=== PATIENT | male | born 1940 | race Caucasian/White ===

== ENCOUNTER 2017-07-25 09:05 | Inpatient (IN) | payer MEDICARE, OTHER, SELFPAY ==
[2017-07-25] VITALS (14 sets, daily range): BP systolic 124–165; BP diastolic 67–89; PULSE 60–80; RESP 16; TEMP 36–36.9; O2SAT 95–99; BMI 25.2; BMI 25.4
--- NOTE | 2017-07-25 09:08 | RAD_ITS ---
STUDY: X-RAY CHEST REASON FOR EXAM: Male, 76 years old. Chest pain TECHNIQUE: Single AP portable view of the chest. COMPARISON: None. FINDINGS: The lungs are clear and expanded. There is no demonstrated pleural abnormality. Normal size heart. Normal mediastinum and christianne. Normal visualized pulmonary arteries. Normal visualized aortic arch and descending thoracic aorta. Normal visualized thoracic spine. Normal visualized ribs, clavicles, and shoulders. There is no demonstrated abnormality of the visualized soft tissue structures of the upper abdomen. RAD/Chest 1 View (Portable) IMPRESSION: No acute cardiopulmonary disease. Electronically Signed: Alex Shi DO at 9:41 EDT , Service support ,
--- NOTE | 2017-07-25 09:08 | EKG12_ITS ---
Test Reason : CP Blood Pressure : / mmHG Vent. Rate : 070 BPM Atrial Rate : 070 BPM P-R Int : 180 ms QRS Dur : 106 ms QT Int : 392 ms P-R-T Axes : 068 052 053 degrees QTc Int : 423 ms Sinus rhythm with occasional Premature ventricular complexes Otherwise normal ECG Confirmed by SHYLA SALMERON ([id number]), editor city MARY SAHNI ([id number] on 08/03/2017 6:05:10 PM Referred By: DIANA Confirmed By:SHYLA SALMERON
[2017-07-25] MEDS: Aspirin 81 MG TAB.CHEW 324 MG PO (09:34)
[2017-07-25 09:47] LABS: Absolute Lymphocyte Count 1.42 X10^3/ul (0.83-4.51); Absolute Neutrophil Count 3.5 X10^3/uL (2.0-7.7); Basophil# 0.04 X10^3/uL; Basophil% 0.7 % (0-1); Eosinophil# 0.16 X10^3/uL; Eosinophils% 2.9 % (0-5); Hematocrit 43.7 % (40-54); Hemoglobin 14.8 g/dl (13.0-16.5); Lymphocyte # 1.42 X10^3/ul (4.0); Lymphocyte % 25.8 % (19-41); Mean Corp Hgb Conc 33.9 g/gl (32-36); Mean Corpuscular Hgb 29.2 pg (27.0-32.0); Mean Corpuscular Volume 86.2 fL (80-94); Mean Platelet Vol. 8.8 fl (6.2-12.0); Monocyte% 7.3 % (0-10); Neutrophil # 3.47 X10^3/uL (2.7-7.7); Neutrophil % 63.1 % (47-70); POSITIVE COUNT NO; POSITIVE DIFFERENTIAL NO; POSITIVE MORPHOLOGY NO; Platelet Count 245 K/mm3 (150-450); RBC Distribution Width CV 14.1 % (11.6-14.6); RBC Distribution Width SD 43.8 fl (35.1-43.9); Red Blood Count 5.07 M/mm3 (4.6-6.2); White Blood Count 5.5 K/mm3 (4.4-11.0)
--- NOTE | 2017-07-25 09:57 | ED.DCSUM_ITS ---
- ER Visit Summary Date of Service: 07/25/17 Chief Complaint: Chest pain History of Present Illness: The patient is a [address] Pizano. He reports that he has chest pain that began approximately 1 month ago. He describes it as a substernal pressure without radiation. It is brought on by exertion and relieved by approximately 30 minutes of rest. Pain is 9 out of 10 at worst and is pain-free currently. Reports that he does belch during these episodes. He denies any associated nausea, vomiting, or diaphoresis. This does make him short of breath. Patient has never had anything like this before. He has never had a stress test or heart catheterization. Physical Examination: Vitals: Stable. Afebrile. General: Well-nourished and well-developed. Head: Normocephalic atraumatic. Neck: Supple, no lymphadenopathy. No JVD. Nontender. Cardiovascular: Regular rate and rhythm. No murmurs. Respiratory: No respiratory distress. Clear to auscultation bilaterally. Abdominal: Soft, nontender, nondistended, normal bowel sounds. No guarding, rebound, or peritoneal signs. Back: Nontender. Extremities: Nontender, no edema. Skin: Normal color, no rash. Neurologic: Alert and oriented ?3. Cranial nerves II through XII are intact. Normal strength and sensation. Psych: Normal affect. Test Results: EKG is sinus at 78 with a PVC. CBC is normal. Chem-7 is normal. Troponin is negative. Chest x-ray shows no acute disease. Emergency Department Course and Treatment: Patient was treated with aspirin. He is resting comfortably and is pain-free. Treatment Plan: Patient will be discussed with the hospitalist. He will be admitted for further evaluation and treatment. Disposition: Admitted in stable condition. Impression: 1. Chest pain. 2. MARILYN score of 2. This note was generated with [employer] dictation software. It may contain incorrect words, spelling, and punctuation that were not noted in review of the chart prior to signing ED Disposition - Plan for ED Patient: Chief Complaint: Chest Pain Referrals: Idania Durham NP-C [Primary Care Provider] -
[2017-07-25 10:04] LABS: Anion Gap 4 (5-15); BUN 14 mg/dL (7-18); Chloride 107 mmol/L (98-107); EST Glomerular Filtration Rate 77 mL/min (>60); Est Glom Filt Rate - Afr Amer 93 mL/min (>60); Estimated Creatinine Clearance 55.83 ml/min; Glucose 91 mg/dL (74-106); Potassium 4.1 mmol/L (3.5-5.1); Sodium Level 140 mmol/L (136-145)
--- NOTE | 2017-07-25 10:57 | PCM.HP.STD ---
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 Personal history of malignant melanoma (Chronic) Z85.820 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 shinto (shave thickness of 0.45 mm) Actinic keratosis (Chronic) L57.0 7 mm actinic keratosis left medial chest wall Family history of skin cancer (Chronic) Z80.8 Smoker (Chronic) F17.200 Allergies No Known Allergies Allergy (Verified 07/25/17 09:07) Home Medications: Ambulatory Orders Medication Instructions Recorded Fluorouracil 30 gm TP BID 07/25/17 Hydrocortisone 2.5% Crm [Hytone] 1 applic TOPICAL DAILY 07/25/17 Multivitamin 1 tab PO DAILY 07/25/17 Ranitidine [Zantac] 150 mg PO BID 07/25/17 Smoking Status: Current every day smoker Patient Problems: Active and Suspected Problems Chest pain (Acute) - Physical Exam Vital Signs Temp Pulse Resp BP Pulse Ox 96.8 F L 77 16 165/89 H 96 07/25/17 09:06 07/25/17 09:06 07/25/17 09:06 07/25/17 09:06 07/25/17 09:31 Oxygen Delivery Method Room Air Weight: 70.942 kg Body Mass Index (BMI) 25.2 Laboratory Tests Past 24 Hrs 07/25/17 07/25/17 09:30 09:30 WBC 5.5 RBC 5.07 Hgb 14.8 Hct 43.7 MCV 86.2 MCH 29.2 MCHC 33.9 RDW 14.1 RDW Differential 43.8 Plt Count 245 MPV 8.8 Immature Gran % (Auto) 0.200 Neut % (Auto) 63.1 Lymph % (Auto) 25.8 Upson % (Auto) 7.3 Eos % (Auto) 2.9 Baso % (Auto) 0.7 Absolute Neuts (auto) 3.5 Absolute Lymphs (auto) 1.42 Total Counted Not Reportable Sodium 140 Potassium 4.1 Chloride 107 Carbon Dioxide 29.0 Anion Gap 4 L BUN 14 Creatinine 1.00 Estim Creat Clear Calc 55.83 Est GFR (MDRD) Af Amer 93 Est GFR (MDRD) Non-Af 77 BUN/Creatinine Ratio 14.0 Glucose 91 Calcium 9.0 Troponin I < 0.015 Assessment/Plan All Active Problems Chest pain (Acute) Open forehead wound (Acute) Code Visit OBSV E&M: 76321 Initial observation care L3
--- NOTE | 2017-07-25 12:27 | ECHOD_ITS ---
Reason For Study: Chest pain Procedure This was a 2D Doppler, Color Flow transthoracic echocardiogram. The study was technically difficult. Exam performed portable in patient room. Left Ventricle Normal size and thickness. The estimated ejection fraction is 45-50 %. Stage 1 diastolic dysfunction. No regional wall motion abnormalities noted. There is mild global hypokinesis of the left ventricle. Right Ventricle Normal size and thickness. A moderator band is seen in the right ventricle. Normal systolic function. Atria Normal left atrium. Normal right atrium. Normal atrial septum. Mitral Valve The mitral valve is structurally normal. No prolapse or stenosis seen. Tricuspid Valve Normal tricuspid valve. Trivial tricuspid valve insufficiency. Right ventricular systolic pressure estimated to be 23 mmHg. Aortic Valve Trisinus/trileaflet aortic valve. Mild diffuse aortic valve thickening. Pulmonic Valve The pulmonic valve is not well visualized. Great Vessels Normal aortic root. Normal arch. Normal inferior vena cava. Inferior vena cava collapse with sniff. Pericardium/Pleural No pericardial effusion. MMode/2D Measurements & Calculations RVDd: 2.4 cm LVOT diam: 2.1 cm Ao root diam: 3.3 cm LVOT area: 3.4 cm2 LA dimension: 3.2 cm LAV(MOD-bp): 33.4 ml EDV(MOD-sp4): 74.3 ml EDV(MOD-sp2): 71.2 ml LAV(MOD-bp) Indexed: 18.6 ml/m2 ESV(MOD-sp4): 38.4 ml EF(MOD-sp2): 43.1 % LAV(MOD-sp2): 41.8 ml EF(MOD-sp4): 48.4 % LAV(MOD-sp4): 20.9 ml SV(MOD-sp4): 36.0 ml SV(MOD-sp2): 30.7 ml LA A4 area: 12.4 cm2 RA A4 area: 10.9 cm2 Doppler Measurements & Calculations MV E max enoch: 49.5 cm/sec Lat Peak E' Enoch: 8.8 cm/sec Med Peak E' Enoch: 5.9 cm/sec MV A max enoch: 76.7 cm/sec E/E' lat: 5.6 E/E' med: 8.4 MV E/A: 0.65 Ao V2 max: 141.0 cm/sec LV V1 max: 79.4 cm/sec SV(LVOT): 57.2 ml Ao max P.0 mmHg LV V1 max P.5 mmHg Ao V2 mean: 110.0 cm/sec LV V1 mean P.3 mmHg Ao mean P.3 mmHg LV V1 mean: 53.5 cm/sec Ao V2 VTI: 28.2 cm LV V1 VTI: 16.6 cm ТАТЬЯНА(I,D): 2.0 cm2 ТАТЬЯНА(V,D): 1.9 cm2 PA V2 max: 97.8 cm/sec TR max enoch: 212.8 cm/sec TR max P.1 mmHg Interpretation Summary The estimated ejection fraction is 45-50 %. Stage 1 diastolic dysfunction. There is mild global hypokinesis of the left ventricle. Trivial tricuspid valve insufficiency. Right ventricular systolic pressure estimated to be 23 mmHg. There is no comparison study available. The study was technically difficult. Ordering Physician: Jovita Colin Referring Physician: Idania Durham Performed By: Magy Norman RDCS
--- NOTE | 2017-07-25 12:40 | EKG12_ITS ---
Test Reason : AM EKG Blood Pressure : / mmHG Vent. Rate : 071 BPM Atrial Rate : 071 BPM P-R Int : 196 ms QRS Dur : 106 ms QT Int : 384 ms P-R-T Axes : 069 052 058 degrees QTc Int : 417 ms Normal sinus rhythm Normal ECG When compared with ECG of 28-JUL-2017 17:36, MANUAL COMPARISON REQUIRED, DATA IS UNCONFIRMED Confirmed by JANICE ARAMBULA, MARY ([id number]), desk editor MARY SAHNI ([id number]) on 08/06/2017 4:46:06 PM Referred By: RUSSELL Confirmed By:MARY CAMACHO MD
[2017-07-25] MEDS: Famotidine 20 MG Tablet PO (15:20)
--- NOTE | 2017-07-25 16:20 | PCM.HP.STD ---
<Jose A Fatima - Last Filed: 07/25/17 16:20> Problem List (1) Chest pain Status: Acute Qualifiers: Ischemic chest pain type: unspecified angina pectoris type (2) Nicotine abuse Status: Chronic (3) HTN (hypertension) Status: Chronic (4) Personal history of malignant melanoma Status: Chronic Comment: Z85.820 History of Present Illness Date of Admission: 07/25/17 Chief Complaint: chest pain The patient is a 76 year old M with a long smoking hx, htn, multiple areas of prior melanoma, who presented to the ER from ENT Dr. Cabrera's office where he was being evaluated for neck pain, but was sent here for chest pain. He states this started 1 month ago, he was eating and experienced a snapping pain in his right neck, after which he developed 9/10 chest pressure that was relieved with belching. This continued to happen repeatedly during the day and night throughout the past month. He notices it especially with activity, though it does occur at rest, and he specifically notes that it happens with stairs and he does have associated SOB. He notes that it is always relieved with belching. He denies diaphoresis and dizziness. He has no prior hx of heart disease. He states he has had high blood pressure in the past but does not take anything for it. He has smoked since age [age], recently cut down from 1.5 ppd to 0.5 ppd and states he has no intention of quitting because he just cant. A daughter has A fib but he denies fm hx of heart disease otherwise. He also drink 3-4 beers per day. He lives a very physically active lifestyle for his age. 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 Psychiatric History: No pertinent psych hx Lives: Spouse/ Significant Other Smoking Status: Current every day smoker Tobacco Use: Cigarettes Alcohol: Heavy Drugs: None - *Family History Sibling History Items: Heart Disease - afib Maternal History Items: No pertinent history Paternal History Items: No pertinent history Review of Systems Constitutional: Denies: Chills, Fever, Weight Change HEENT: Denies: Head Aches, Sinus Congestion, Sinus Drainage Cardiovascular: Reports: Chest Pain, Chest Pressure. Denies: Palpitations Respiratory: Reports: Shortness of Breath. Denies: Cough, Shortness of breath at rest, Sputum production Gastrointestinal: Reports: - - belching. Denies: Abdominal Pain, Nausea, Vomiting Genitourinary: Denies: Dysuria Musculoskeletal: Denies: Joint Pain, Joint Tenderness Skin: Denies: Rash, Wounds Neurological: Denies: Numbness, Tingling, Focal weakness Psychiatric: Denies: Anxiety, Depression, Homicidal Ideations, Suicidal Ideations Hematologic/ Lymphatic: Denies: Easy Bruising, Easy Bleeding VTE Information - Inpt Only VTE Present on Admission: No VTE Mechan Device Prophylaxis: None VTE Pharm Prophylaxis ordered?: Yes Patient Problems: Active and Suspected Problems Chest pain (Acute) - Physical Exam General: Alert, Oriented x3, Cooperative HEENT: Atraumatic, PERRLA, EOMI, Normocephalic Neck: Supple, No JVD, Negative Carotid Bruits Lungs: Normal air movement, Rales - faint rales BL bases. Cardiovascular: Regular rate, No murmurs Abdomen: Bowel Sounds Present, Soft, Non Tender Extremities: No edema, Capillary Refill Less than 3 Seconds Skin: No rashes, No breakdown Musculoskeletal: No Tenderness to Palpation of Joints or Extremities Neurological: Cranial nerves II-XII grossly intact Psych/Mental Status: Normal Affect, Appropriate Vital Signs Temp Pulse Resp BP Pulse Ox 98.0 F 78 16 126/69 H 97 07/25/17 15:25 07/25/17 15:25 07/25/17 15:25 07/25/17 15:25 07/25/17 15:25 Oxygen Delivery Method Room Air Weight: 73.6 kg Body Mass Index (BMI) 25.4 Laboratory Tests Past 24 Hrs 07/25/17 07/25/17 12:40 16:05 Troponin I < 0.015 Pending Assessment/Plan All Active Problems Chest pain (Acute) Open forehead wound (Acute) 1. Chest pain - 9/10 pressure with exertion and stairs with SOB, relieved by belching. Concern for both underlying CAD, but also for a component of GERD. Neg EKG, troponin, CXR. Cycle enzymes, repeat EKG in am, stress test thursday, maintain on tele. Advised smoking cessation and decreased alcohol consumption. Started aspirin, lopressor. -Echo pending 2. Melanoma - on fluorouracil, last surgery 2 weeks ago 3. HTN - not on home meds. May need rx at dc. 4. Nicotine abuse - advised cessation, does not want patch. 5. High risk drinking behavior - advised decrease to 1 / day. currently 3-4/day beers/day. 6. Suspected GERD - start PPI. Trial x 1 month DVT ppx: lovenox DC planning: stress test thursday This patient was seen by Jose A Fatima PA-C under the supervision of Doctor Dixie. <Jovita Colin - Last Filed: 07/25/17 18:05> Problem List (1) Chest pain Status: Acute Qualifiers: Ischemic chest pain type: unspecified angina pectoris type History of Present Illness The patient is a 76 year old M [] Past Medical History Allergies No Known Allergies Allergy (Verified 07/25/17 09:07) - Physical Exam Vital Signs Temp Pulse Resp BP Pulse Ox 98.0 F 78 16 126/69 H 97 07/25/17 15:25 07/25/17 15:25 07/25/17 15:25 07/25/17 15:25 07/25/17 15:25 Oxygen Delivery Method Room Air Weight: 73.6 kg Body Mass Index (BMI) 25.4 Laboratory Tests Past 24 Hrs 07/25/17 07/25/17 12:40 16:05 Troponin I < 0.015 < 0.015 Assessment/Plan Patient was seen and examined with physician medical support assistant Jose A Fatima. I agree with his above history physical exam and assessment and plan as documented. Patient is a lifelong smoker, been smoking since the age of 9 years, nowown to half a pack a day, history of GERD comes in with one-month history of chest pain is worse with exertion and gets relieved with rest. Not associated with diaphoresis or dizziness or palpitations or leg swelling or shortness of breath. This pain seems to be relieved by belching. History of underlying GERD, on famotidine. Review of systems was essentially negative. PMHx: GERD, chronic nicotine use disorder, history of melanoma status post excision in the left temporal region PSHX: Status post surgery melanoma in the left temporal region, right foot surgery status post plating, vasectomy FHX: Non-valvular A. fib in the daughter SHX: Chronic smoker, down to half pack a day, and alcohol more than 4 beers a day, denies any illicit drug use Physical exam: Vitals were reviewed and was stable. GEN: Alert and oriented ?3, not pale, no jaundice, well-hydrated CVS: Heart sounds 1 and 2 with head, no murmurs were heard, regular, no tachycardia RESP: Clinically clear to auscultation EXT: No edema on extremities RAILWAYS ASSISTANT: Grossly intact Labs were reviewed, EKG shows no acute ST-T changes, normal sinus rhythm Assessment: Chest pain: stable angina versus GERD History of melanoma Hypertension Nicotine use disorder Alcohol use disorder Plan: Admit to telemetry bed, monitor vitals closely, IV PPI twice daily, aspirin, beta-ajith, stress test on Thursday Patient refuses nicotine patch. Device to quit smoking and to also limit use of alcohol to less than 1-2 drinks a day Code Visit OBSV E&M: 86596 Initial observation care L3
--- NOTE | 2017-07-25 16:36 | HP.PCM_ITS ---
<Jose A Fatima - Last Filed: 07/25/17 16:20> Problem List (1) Chest pain Status: Acute Qualifiers: Ischemic chest pain type: unspecified angina pectoris type (2) Nicotine abuse Status: Chronic (3) HTN (hypertension) Status: Chronic (4) Personal history of malignant melanoma Status: Chronic Comment: Z85.820 History of Present Illness Date of Admission: 07/25/17 Chief Complaint: chest pain The patient is a 76 year old M with a long smoking hx, htn, multiple areas of prior melanoma, who presented to the ER from ENT Dr. Cabrera's office where he was being evaluated for neck pain, but was sent here for chest pain. He states this started 1 month ago, he was eating and experienced a snapping pain in his right neck, after which he developed 9/10 chest pressure that was relieved with belching. This continued to happen repeatedly during the day and night throughout the past month. He notices it especially with activity, though it does occur at rest, and he specifically notes that it happens with stairs and he does have associated SOB. He notes that it is always relieved with belching. He denies diaphoresis and dizziness. He has no prior hx of heart disease. He states he has had high blood pressure in the past but does not take anything for it. He has smoked since age [age], recently cut down from 1.5 ppd to 0.5 ppd and states he has no intention of quitting because he just cant. A daughter has A fib but he denies fm hx of heart disease otherwise. He also drink 3-4 beers per day. He lives a very physically active lifestyle for his age. 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 Psychiatric History: No pertinent psych hx Lives: Spouse/ Significant Other Smoking Status: Current every day smoker Tobacco Use: Cigarettes Alcohol: Heavy Drugs: None - *Family History Sibling History Items: Heart Disease - afib Maternal History Items: No pertinent history Paternal History Items: No pertinent history Review of Systems Constitutional: Denies: Chills, Fever, Weight Change HEENT: Denies: Head Aches, Sinus Congestion, Sinus Drainage Cardiovascular: Reports: Chest Pain, Chest Pressure. Denies: Palpitations Respiratory: Reports: Shortness of Breath. Denies: Cough, Shortness of breath at rest, Sputum production Gastrointestinal: Reports: - - belching. Denies: Abdominal Pain, Nausea, Vomiting Genitourinary: Denies: Dysuria Musculoskeletal: Denies: Joint Pain, Joint Tenderness Skin: Denies: Rash, Wounds Neurological: Denies: Numbness, Tingling, Focal weakness Psychiatric: Denies: Anxiety, Depression, Homicidal Ideations, Suicidal Ideations Hematologic/ Lymphatic: Denies: Easy Bruising, Easy Bleeding VTE Information - Inpt Only VTE Present on Admission: No VTE Mechan Device Prophylaxis: None VTE Pharm Prophylaxis ordered?: Yes Patient Problems: Active and Suspected Problems Chest pain (Acute) - Physical Exam General: Alert, Oriented x3, Cooperative HEENT: Atraumatic, PERRLA, EOMI, Normocephalic Neck: Supple, No JVD, Negative Carotid Bruits Lungs: Normal air movement, Rales - faint rales BL bases. Cardiovascular: Regular rate, No murmurs Abdomen: Bowel Sounds Present, Soft, Non Tender Extremities: No edema, Capillary Refill Less than 3 Seconds Skin: No rashes, No breakdown Musculoskeletal: No Tenderness to Palpation of Joints or Extremities Neurological: Cranial nerves II-XII grossly intact Psych/Mental Status: Normal Affect, Appropriate Vital Signs Temp Pulse Resp BP Pulse Ox 98.0 F 78 16 126/69 H 97 07/25/17 15:25 07/25/17 15:25 07/25/17 15:25 07/25/17 15:25 07/25/17 15:25 Oxygen Delivery Method Room Air Weight: 73.6 kg Body Mass Index (BMI) 25.4 Laboratory Tests Past 24 Hrs 07/25/17 07/25/17 12:40 16:05 Troponin I < 0.015 Pending Assessment/Plan All Active Problems Chest pain (Acute) Open forehead wound (Acute) 1. Chest pain - 9/10 pressure with exertion and stairs with SOB, relieved by belching. Concern for both underlying CAD, but also for a component of GERD. Neg EKG, troponin, CXR. Cycle enzymes, repeat EKG in am, stress test thursday, maintain on tele. Advised smoking cessation and decreased alcohol consumption. Started aspirin, lopressor. -Echo pending 2. Melanoma - on fluorouracil, last surgery 2 weeks ago 3. HTN - not on home meds. May need rx at dc. 4. Nicotine abuse - advised cessation, does not want patch. 5. High risk drinking behavior - advised decrease to 1 / day. currently 3-4/day beers/day. 6. Suspected GERD - start PPI. Trial x 1 month DVT ppx: lovenox DC planning: stress test thursday This patient was seen by Jose A Fatima PA-C under the supervision of Doctor Dixie. <Jovita Colin - Last Filed: 07/25/17 18:05> Problem List (1) Chest pain Status: Acute Qualifiers: Ischemic chest pain type: unspecified angina pectoris type History of Present Illness The patient is a 76 year old M [] Past Medical History Allergies No Known Allergies Allergy (Verified 07/25/17 09:07) - Physical Exam Vital Signs Temp Pulse Resp BP Pulse Ox 98.0 F 78 16 126/69 H 97 07/25/17 15:25 07/25/17 15:25 07/25/17 15:25 07/25/17 15:25 07/25/17 15:25 Oxygen Delivery Method Room Air Weight: 73.6 kg Body Mass Index (BMI) 25.4 Laboratory Tests Past 24 Hrs 07/25/17 07/25/17 12:40 16:05 Troponin I < 0.015 < 0.015 Assessment/Plan Patient was seen and examined with physician operations and intelligence assistant Jose A Fatima. I agree with his above history physical exam and assessment and plan as documented. Patient is a lifelong smoker, been smoking since the age of 9 years, nowown to half a pack a day, history of GERD comes in with one-month history of chest pain is worse with exertion and gets relieved with rest. Not associated with diaphoresis or dizziness or palpitations or leg swelling or shortness of breath. This pain seems to be relieved by belching. History of underlying GERD , on famotidine. Review of systems was essentially negative. PMHx: GERD, chronic nicotine use disorder, history of melanoma status post excision in the left temporal region PSHX: Status post surgery melanoma in the left temporal region, right foot surgery status post plating, vasectomy FHX: Non-valvular A. fib in the daughter SHX: Chronic smoker, down to half pack a day, and alcohol more than 4 beers a day, denies any illicit drug use Physical exam: Vitals were reviewed and was stable. GEN: Alert and oriented ?3, not pale, no jaundice, well-hydrated CVS: Heart sounds 1 and 2 with head, no murmurs were heard, regular, no tachycardia RESP: Clinically clear to auscultation EXT: No edema on extremities SKIDDER LOADER: Grossly intact Labs were reviewed, EKG shows no acute ST-T changes, normal sinus rhythm Assessment: Chest pain: stable angina versus GERD History of melanoma Hypertension Nicotine use disorder Alcohol use disorder Plan: Admit to telemetry bed, monitor vitals closely, IV PPI twice daily, aspirin, beta-ajith, stress test on Thursday Patient refuses nicotine patch. Device to quit smoking and to also limit use of alcohol to less than 1-2 drinks a day Code Visit OBSV E&M: 10500 Initial observation care L3
[2017-07-25] MEDS: Metoprolol Tartrate 25 MG Tablet 12.5 MG PO (22:50)
[2017-07-25] MEDS: 0.9% NaCl Peripheral Flush Adult/Peds IV (22:50)
[2017-07-26] VITALS (15 sets, daily range): BP systolic 108–125; BP diastolic 64–74; PULSE 66–90; RESP 16–18; TEMP 36.6–37.1; O2SAT 95–98
[2017-07-26 05:26] LABS: Hematocrit 37.9 % (40-54); Hemoglobin 12.7 g/dl (13.0-16.5); Mean Corp Hgb Conc 33.5 g/gl (32-36); Mean Corpuscular Hgb 29.5 pg (27.0-32.0); Mean Corpuscular Volume 88.1 fL (80-94); Mean Platelet Vol. 9.2 fl (6.2-12.0); Platelet Count 228 K/mm3 (150-450); RBC Distribution Width CV 14.2 % (11.6-14.6); RBC Distribution Width SD 45.1 fl (35.1-43.9); White Blood Count 5.9 K/mm3 (4.4-11.0)
[2017-07-26 05:40] LABS: Scan Indicated on CBC? Y/N NO
[2017-07-26 05:41] LABS: Anion Gap 7 (5-15); BUN 21 mg/dL (7-18); BUN/Creat Ratio 23.6 RATIO (10-20); Calcium,Total 8.5 mg/dL (8.5-10.1); Chloride 109 mmol/L (98-107); Cholesterol 167 mg/dL (200); Creatinine, Serum 0.89 mg/dL (0.70-1.30); EST Glomerular Filtration Rate 88 mL/min (>60); Est Glom Filt Rate - Afr Amer 106 mL/min (>60); Estimated Creatinine Clearance 64.99 ml/min; Glucose 102 mg/dL (74-106); High Density Lipoprotein 48 mg/dL; Potassium 4.4 mmol/L (3.5-5.1); Sodium Level 144 mmol/L (136-145); Triglycerides 177 mg/dL; Very Low Density Lipoprotein 35 mg/dL (5-40)
[2017-07-26] MEDS: Aspirin E.C. 81 MG Tablet PO (08:13)
[2017-07-26] MEDS: Metoprolol Tartrate 25 MG Tablet 12.5 MG PO ×2 (09:20→22:07)
[2017-07-26] MEDS: Enoxaparin 40 MG/0.4 ML Syringe SC (09:20)
[2017-07-26] MEDS: 0.9% NaCl Peripheral Flush Adult/Peds IV ×2 (13:18→22:07)
--- NOTE | 2017-07-26 13:34 | PCM.PROGNOTE ---
<Jose A Fatima - Last Filed: 07/26/17 13:34> Patient Problems: Active and Suspected Problems Chest pain (Acute) Subjective: Pt continues to have intermittent episodes of right neck pain, associated with chest pressure relieved with belching. He has no dizziness/LH/SOB. - Physical Exam General: Alert, Oriented x3, Cooperative HEENT: Atraumatic, PERRLA, EOMI, Normocephalic Neck: Supple, No JVD, Negative Carotid Bruits Lungs: Rales - BL bases Cardiovascular: Regular rate, No murmurs Abdomen: Bowel Sounds Present, Soft, Non Tender Extremities: No edema, Capillary Refill Less than 3 Seconds Skin: No rashes, No breakdown Musculoskeletal: No Tenderness to Palpation of Joints or Extremities Neurological: Cranial nerves II-XII grossly intact Psych/Mental Status: Normal Affect, Appropriate Vital Signs Temp Pulse Resp BP Pulse Ox 98.7 F 72 18 120/74 95 07/26/17 08:15 07/26/17 11:17 07/26/17 08:15 07/26/17 08:15 07/26/17 08:15 Oxygen Delivery Method Room Air Weight: 73.3 kg Body Mass Index (BMI) 25.4 Intake and Output for Last 24 Hours 07/24/17 07/25/17 07/26/17 23:59 23:59 23:59 Intake Total 1312.4 / 1312.4 940 / 940 Balance 1312.4 / 1312.4 940 / 940 Laboratory Tests Past 24 Hrs 07/25/17 07/26/17 07/26/17 16:05 04:47 04:47 WBC 5.9 RBC 4.30 L Hgb 12.7 L Hct 37.9 L MCV 88.1 MCH 29.5 MCHC 33.5 RDW 14.2 RDW Differential 45.1 H Plt Count 228 MPV 9.2 Sodium 144 Potassium 4.4 Chloride 109 H Carbon Dioxide 28.0 Anion Gap 7 BUN 21 H Creatinine 0.89 Estim Creat Clear Calc 64.99 Est GFR (MDRD) Af Amer 106 Est GFR (MDRD) Non-Af 88 BUN/Creatinine Ratio 23.6 H Glucose 102 Calcium 8.5 Troponin I < 0.015 Triglycerides 177 Cholesterol 167 LDL Cholesterol 84 VLDL Cholesterol 35 HDL Cholesterol 48 Medical Necessity - Tobacco Use Smoking Status: Current every day smoker Tobacco Use: Cigarettes Assessment/Plan All Active Problems Chest pain (Acute) Open forehead wound (Acute) 1. Chest pain - 9/10 pressure with exertion and stairs with SOB, relieved by belching. Concern for both underlying CAD, but also for a component of GERD. Neg EKG, troponin, CXR. Cycle enzymes, repeat EKG in am, stress test thursday, maintain on tele. Advised smoking cessation and decreased alcohol consumption. Started aspirin, lopressor. -Trop negative x 3 -Intermittent episodes continue as per subjective. -Echo pending -TChol, LDL 84. 2. Melanoma - on fluorouracil, last surgery 2 weeks ago 3. HTN - not on home meds. May need rx at dc. 4. Nicotine abuse - advised cessation, does not want patch. 5. High risk drinking behavior - advised decrease to 1 / day. currently 3-4/day beers/day. 6. Suspected GERD - start PPI. Trial x 1 month. No relief so far. DVT ppx: lovenox DC planning: stress test thursday This patient was seen by Jose A Fatima PA-C under the supervision of Doctor Colin. <Jovita Colin - Last Filed: 07/26/17 16:12> - Physical Exam Vital Signs Temp Pulse Resp BP Pulse Ox 97.8 F 67 16 116/64 95 07/26/17 13:46 07/26/17 15:40 07/26/17 13:46 07/26/17 13:46 07/26/17 13:46 Oxygen Delivery Method Room Air Weight: 73.3 kg Body Mass Index (BMI) 25.4 Intake and Output for Last 24 Hours 07/24/17 07/25/17 07/26/17 23:59 23:59 23:59 Intake Total 1312.4 / 1312.4 940 / 940 Balance 1312.4 / 1312.4 940 / 940 Laboratory Tests Past 24 Hrs 07/25/17 07/26/17 07/26/17 16:05 04:47 04:47 WBC 5.9 RBC 4.30 L Hgb 12.7 L Hct 37.9 L MCV 88.1 MCH 29.5 MCHC 33.5 RDW 14.2 RDW Differential 45.1 H Plt Count 228 MPV 9.2 Sodium 144 Potassium 4.4 Chloride 109 H Carbon Dioxide 28.0 Anion Gap 7 BUN 21 H Creatinine 0.89 Estim Creat Clear Calc 64.99 Est GFR (MDRD) Af Amer 106 Est GFR (MDRD) Non-Af 88 BUN/Creatinine Ratio 23.6 H Glucose 102 Calcium 8.5 Troponin I < 0.015 Triglycerides 177 Cholesterol 167 LDL Cholesterol 84 VLDL Cholesterol 35 HDL Cholesterol 48 Assessment/Plan Seen and examined independently. Denies any complaints at the time of being examined. Had an episode of chest discomfort that was relieved with belching. Has been walking around the nursing unit. No acute events on telemetry. Vitals reviewed, stable. Labs reviewed, troponins have been negative. Physical exam is unremarkable Patient will have stress test in the morning. Will discharge in a.m. if stress test is negative Code Visit Inpatient E&M: 75955 Subs Hosp L2
--- NOTE | 2017-07-26 23:29 | DT_ITS ---
This patient was seen during an EMR downtime July 27, 2017 - August 03, 2017. This patient may have a combination of paper and electronic documentation or all paper documentation. All documentation is viewable within the e-chart portion of [facility] for each patient visit.
[2017-07-27 03:00] VITALS: PULSE 91
[2017-07-27 04:05] VITALS: BP 122/69; PULSE 75; RESP 16; TEMP 36.4; O2SAT 97
--- NOTE | 2017-07-27 05:55 | EKG12_ITS ---
Test Reason : AM EKG Blood Pressure : / mmHG Vent. Rate : 071 BPM Atrial Rate : 071 BPM P-R Int : 184 ms QRS Dur : 106 ms QT Int : 400 ms P-R-T Axes : 066 053 056 degrees QTc Int : 434 ms Normal sinus rhythm Normal ECG Confirmed by RUSSELL ARAMBULA, CHANEL ([id number]), story editor MARY SAHNI ([id number]) on 08/07/2017 2:15:23 PM Referred By: EDGAR Confirmed By:CHANEL WELLS MD
--- NOTE | 2017-07-28 14:17 | EKG12_ITS ---
Test Reason : AM EKG Blood Pressure : / mmHG Vent. Rate : 074 BPM Atrial Rate : 074 BPM P-R Int : 182 ms QRS Dur : 106 ms QT Int : 386 ms P-R-T Axes : 066 053 065 degrees QTc Int : 428 ms Sinus rhythm with occasional Premature ventricular complexes Low voltage QRS (limb leads) Confirmed by RUSSELL ARAMBULA, CHANEL ([id number]), scientific publications editor MARY SAHNI ([id number]) on 08/07/2017 2:12:33 PM Referred By: SVETA Confirmed By:CHANEL WELLS MD
--- NOTE | 2017-07-29 14:17 | EKG12_ITS ---
Test Reason : CP Blood Pressure : / mmHG Vent. Rate : 065 BPM Atrial Rate : 065 BPM P-R Int : 180 ms QRS Dur : 104 ms QT Int : 402 ms P-R-T Axes : 024 047 035 degrees QTc Int : 418 ms Normal sinus rhythm Normal ECG Confirmed by RUSSELL ARAMBULA, CHANEL ([id number]), editor magazine MARY SAHNI ([id number]) on 08/07/2017 2:17:33 PM Referred By: Confirmed By:CHANEL WELLS MD
[2017-07-30 16:23] LABS: Absolute Neutrophil Count 4.4 X10^3/uL (2.0-7.7); Basophil% 0.4 % (0-1); Eosinophils% 3.4 % (0-5); Hematocrit 41.5 % (40-54); Hemoglobin 13.3 g/dl (13.0-16.5); Lymphocyte % 23.9 % (19-41); Mean Corpuscular Hgb 28.5 pg (27.0-32.0); Mean Corpuscular Volume 89.1 fL (80-94); Monocyte% 9.8 % (0-10); Neutrophil # 4.39 X10^3/uL (2.7-7.7); Neutrophil % 62.5 % (47-70); POSITIVE COUNT NO; POSITIVE DIFFERENTIAL NO; POSITIVE MORPHOLOGY NO; Platelet Count 221 K/mm3 (150-450); RBC Distribution Width CV 14.6 % (11.6-14.6); RBC Distribution Width SD 46.9 fl (35.1-43.9); Red Blood Count 4.66 M/mm3 (4.6-6.2)
[2017-07-30 16:24] LABS: Absolute Lymphocyte Count 1.68 X10^3/ul (0.83-4.51); Basophil# 0.03 X10^3/uL; Eosinophil# 0.24 X10^3/uL; Lymphocyte # 1.68 X10^3/ul (4.0); Monocyte# 0.69 X10^3/uL
[2017-07-30 17:48] LABS: Partial Thromboplast Time 33.7 Seconds (24.1-36.2)
[2017-07-31 11:45] LABS: Hematocrit 42.6 % (40-54); Hemoglobin 13.9 g/dl (13.0-16.5); Mean Corp Hgb Conc 32.6 g/gl (32-36); Mean Corpuscular Hgb 28.5 pg (27.0-32.0); Mean Corpuscular Volume 87.5 fL (80-94); Platelet Count 220 K/mm3 (150-450); RBC Distribution Width CV 14.1 % (11.6-14.6); RBC Distribution Width SD 45.2 fl (35.1-43.9); Red Blood Count 4.87 M/mm3 (4.6-6.2); White Blood Count 7.4 K/mm3 (4.4-11.0)
[2017-07-31 11:46] LABS: Mean Platelet Vol. 9.5 fl (6.2-12.0); Scan Indicated on CBC? Y/N NO
--- NOTE | 2017-07-31 16:57 | CL.I_ITS ---
Patient Name: JAGDEEP WALTERS Study Date: 07/28/2017 Performing: Juan Mcgowan MD Ht: 67 inches 170.18 cm : 1940 Wt: 160 lbs 72.575 kg Age: 76 Gender: male BSA: 1.84 PROCEDURE(S) PERFORMED II05-HDR W OR WO PTCA, SINGLE CORONARY ARTERY CLINICAL PROFILE AND CO-MORBIDITIES Heart Failure: None CAD Presentations: Unstable angina. CONCLUSIONS RECOMMENDATIONS ASA Indefinitley Brilinta for at least 12 months Assess LAD with non-invasive testing Follow up with Dr. Matta DESCRIPTION OF PROCEDURE The patient arrived to the procedure lab. The risks and benefits of the procedure as well as a full d escription of our services here and current unavailability of surgical backup were fully explained to the patient and/or their significant other prior to the catheterization. The Timeout was completed, verifying the correct patient and procedure. The patient's procedural site was prepped and draped in the usual fashion. Local anesthetic was given subcutaneously to right radial region with Lidocaine 2% Using a modified Seldinger technique,arterial access was obtained via the right radial artery, a 6Fr sheath was inserted. Right Coronary Artery selective angiography was then performed in multiple view s using a 5 Fr. 4.0 [place] catheter. Left Coronary Artery selective angiography was performed in multi ple views using a 5 Fr. 4.0 [place] catheter. Left Ventriculography was performed in MISHRA projection usi ng a 5 Fr. Pigtail catheter. LV to AO pullback pressures were then recorded. JR4 Guide catheter was inserted and engaged into the RCA. Runthrough Guide wire was advanced to the R CA. Angiogram performed pre balloon dilatation. 2.5 x 15 emerge Balloon catheter was advanced across lesion in the right coronary, proximal. PTCA balloon inflated at 10 atms for 20 secs. Angiogram perfo rmed post balloon dilatation. 3.0 x 15 Resolute Drug Eluting stent was advanced across the lesion in the right coronary, proximal. Angiogram performed post stent deployment. 3.0 x 12 NC Emerge Balloon c atheter was inserted post stent. PTCA balloon inflated at 6 atms for 10 secs. PTCA balloon inflated a t 12 atms for 15 secs. PTCA balloon inflated at 16 atms for 13 secs. PTCA balloon inflated at 16 atms for 15 secs. Angiogram performed post balloon dilatation. 3.5 x 8 NC Emerge Balloon catheter was ins erted post stent. PTCA balloon inflated at 12 atms for 20 secs. PTCA balloon inflated at 16 atms for 20 secs. PTCA balloon inflated at 14 atms for 10 secs. Angiogram performed post balloon dilatation. 3 .0 x 30 Resolute Drug Eluting stent was advanced across the lesion in the right coronary, proximal. D rug Eluting stent was removed intact, failed to cross lesion 3.0x26 resolute Drug Eluting stent was a dvanced across the lesion in the right coronary, proximal. 3.0x12 NC emerge Balloon catheter was inse rted post stent. PTCA balloon inflated at 14 atms for 10 secs. PTCA balloon inflated at 14 atms for 1 4 secs. PTCA balloon inflated at 20 atms for 14 secs. PTCA balloon inflated at 20 atms for 16 secs. P TCA balloon inflated at 20 atms for 10 secs. 3.5x8 NC Emerge Balloon catheter was inserted post stent . PTCA balloon inflated at 14 atms for 9 secs. PTCA balloon inflated at 12 atms for 6 secs. PTCA ball oon inflated at 14 atms for 11 secs. INTERVENTION INFORMATION LESION SITE: RCA (Proximal) Lesion Complexity: High/C Pre Stenosis: 99 % Pre intervention MARILYN flow: 2 PROCEDURE: Drug Eluting Stent with pre and post dilatation Post Stenosis: 0 % Post intervention MARILYN flow: 3 Lesion Devices: Cordis 6 Fr JR4 100cm Guide Catheter Terumo .014 Runthrough Extra Floppy 180cm straight [employer] EMERGE MR 2.50x15 BALLOON Medtronic Resolute RX PILO 3.0x15 P[employer]an [employer] NC EMERGE MR 3.00x12 BALLOON [employer] NC EMERGE MR 3.50x08 BALLOON Medtronic Resolute RX PILO 3.0x30 Medtronic Resolute RX PILO 3.0x26 COMPLICATIONS No Complications PROCEDURE MEDICATIONS Versed 1 mg IV Fentanyl 50 mcg IV Versed 1 mg IV Fentanyl 50 mcg IV Fentanyl 25 mcg IV Oxygen: 2 L/min via nasal cannula Angiomax Bolus 11.3 ml's 07/28/2017 15:44:01 Angiomax 5mg / ml @ 26.3 ml/hr IV started @ 07/28/2017 15:46:17 Heparin diluted in 23cc Heparinized saline. Patient given 10cc IA of this solution. 07/28/2017 15:15:4 0 Nitro 200 mcg IC 07/28/2017 15:52:06 Nitro 200 mcg IC 07/28/2017 15:52:06 Nitro 200 mcg IC 07/28/2017 16:01:16 Verapamil 2.5mg, Ntg 100mcgs, 2000 units of Heparin diluted in 23cc Heparinized saline. Patient give n 10cc IA of this solution. 07/28/2017 15:15:40 SUMMARY OF HEMODYNAMIC DATA Time AIR REST ECG 14:47:49 AO 88/62 (74) SA 15:17:31 LV 119/9, 17 15:33:34 LV 117/8, 16 15:33:41 LV 119/8, 15 15:34:51 LVp 125/7, 18 15:35:01 AOp 116/66 (84) 15:35:06 AO 130/70 (95) 15:45:40 Signed By Juan Mcgowan MD On 07/28/2017 16:49:40 Juan Mcgowan MD
--- NOTE | 2017-07-31 16:57 | CL.D_ITS ---
Patient Name: JAGDEEP WALTERS Study Date: 07/28/2017 Performing: Graham Matta MD Ht: 67 inches 170.18 cm : 1940 Wt: 160 lbs 72.575 kg Age: 76 Gender: male BSA: 1.84 PROCEDURE(S) PERFORMED EW40-FND/COR/LV GR57-ZHI W OR WO PTCA, SINGLE CORONARY ARTERY CLINICAL PROFILE AND INDICATIONS Indications: Other: Accelerating Angina Pectoris; NSVT, Cardiac Arrythmia, Suspected CAD Heart Failure: None Stress/Imaging Stress/Image Study Performed: No CAD Presentations: Unstable angina. Stable angina. (Accelerating) CONCLUSIONS Elevated Left Ventricular End Diastolic Pressure Normal LV size, wall motion,and systolic function LVEF: by LV gram 60 % [place] Multivessel CAD (predominantly RCA and LAD) RECOMMENDATIONS Risk factor modification Medical therapy Referred for immediate PCI DESCRIPTION OF PROCEDURE The patient arrived to the procedure lab. The risks and benefits of the procedure as well as a full d escription of our services here and current unavailability of surgical backup were fully explained to the patient and/or their significant other prior to the catheterization. The Timeout was completed, verifying the correct patient and procedure. The patient's procedural site was prepped and draped in the usual fashion. Local anesthetic was given subcutaneously to right radial region with Lidocaine 2% . Using a modified Seldinger technique, arterial access was obtained via the right radial artery, a 6 Fr sheath was inserted. Right Coronary Artery selective angiography was then performed in multiple v iews using a 5 Fr. 4.0 [place] catheter. Left Coronary Artery selective angiography was performed in mu ltiple views using a 5 Fr. 4.0 [place] catheter. Left Ventriculography was performed in MISHRA projection using a 5 Fr. Pigtail catheter. LV to AO pullback pressures were then recorded. CORONARY ANGIOGRAPHY DOMINANCE: Right Dominant LEFT HEART ASSESSMENT Left Ventricular Ejection Fraction: by LV Gram 60 % Normal LV wall motion Elevated Left Ventricular End Diastolic Pressure LVEDP: 17 mmHg LEFT MAIN: Mild calcification, Mild luminal irregularities LEFT ANTERIOR DECENDING ARTERY: PROX LAD: Mild calcification, Diffuse: Irregular: 25-50 % Stenosis DISTAL LAD: Apical: 95 % Stenosis CIRCUMFLEX ARTERY: PROX CIRC: Mild calcification, Mild luminal irregularities OM 1: Proximal - Mild luminal irregularities RIGHT CORONARY ARTERY: PROX RCA: Eccentric: 99 % Stenosis MID RCA: 25 % Stenosis COLLATERAL FLOW: Collateral flow from Left to Right VALVE FINDINGS: Normal Aortic Valve function Normal Mitral Valve function AORTIC ROOT: Angiographically normal COMPLICATIONS No Complications PROCEDURE MEDICATIONS Versed 1 mg IV Fentanyl 50 mcg IV Versed 1 mg IV Fentanyl 50 mcg IV Fentanyl 25 mcg IV Oxygen: 2 L/min via nasal cannula Angiomax Bolus 11.3 ml's 07/28/2017 15:44:01 Angiomax 5mg / ml @ 26.3 ml/hr IV started @ 07/28/2017 15:46:17 Heparin diluted in 23cc Heparinized saline. Patient given 10cc IA of this solution. 07/28/2017 15:15:4 0 Nitro 200 mcg IC 07/28/2017 15:52:06 Nitro 200 mcg IC 07/28/2017 15:52:06 Nitro 200 mcg IC 07/28/2017 16:01:16 Verapamil 2.5mg, Ntg 100mcgs, 2000 units of Heparin diluted in 23cc Heparinized saline. Patient give n 10cc IA of this solution. 07/28/2017 15:15:40 SUMMARY OF HEMODYNAMIC DATA Time AIR REST ECG 14:47:49 AO 88/62 (74) SA 15:17:31 LV 119/9, 17 15:33:34 LV 117/8, 16 15:33:41 LV 119/8, 15 15:34:51 LVp 125/7, 18 15:35:01 AOp 116/66 (84) 15:35:06 AO 130/70 (95) 15:45:40 Signed By Graham Matta MD On 07/28/2017 17:38:55 Graham Matta MD
[2017-08-01 06:56] LABS: Anion Gap 5 (5-15); BUN 16 mg/dL (7-18); BUN/Creat Ratio 16.2 RATIO (10-20); Calcium,Total 8.2 mg/dL (8.5-10.1); Chloride 109 mmol/L (98-107); Creatinine, Serum 0.99 mg/dL (0.70-1.30); EST Glomerular Filtration Rate 78 mL/min (>60); Est Glom Filt Rate - Afr Amer 95 mL/min (>60); Estimated Creatinine Clearance 58.42 ml/min; Glucose 95 mg/dL (74-106); Potassium 4.1 mmol/L (3.5-5.1); Sodium Level 143 mmol/L (136-145)
[2017-08-01 08:07] LABS: Hematocrit 39.2 % (40-54); Mean Corp Hgb Conc 33.2 g/gl (32-36); Mean Corpuscular Hgb 28.6 pg (27.0-32.0); Mean Corpuscular Volume 86.2 fL (80-94); Mean Platelet Vol. 8.9 fl (6.2-12.0); Platelet Count 199 K/mm3 (150-450); RBC Distribution Width CV 14.2 % (11.6-14.6); RBC Distribution Width SD 44.6 fl (35.1-43.9); Red Blood Count 4.55 M/mm3 (4.6-6.2); Scan Indicated on CBC? Y/N NO; White Blood Count 5.7 K/mm3 (4.4-11.0)
[2017-08-01 10:38] LABS: Anion Gap 7 (5-15); BUN 25 mg/dL (7-18); BUN/Creat Ratio 21.7 RATIO (10-20); Calcium,Total 8.8 mg/dL (8.5-10.1); Chloride 105 mmol/L (98-107); Creatinine, Serum 1.15 mg/dL (0.70-1.30); EST Glomerular Filtration Rate 66 mL/min (>60); Est Glom Filt Rate - Afr Amer 80 mL/min (>60); Estimated Creatinine Clearance 50.29 ml/min; Glucose 97 mg/dL (74-106); Potassium 4.7 mmol/L (3.5-5.1); Sodium Level 141 mmol/L (136-145)
[2017-08-02 20:10] LABS: ACT Activated Clotting Time 301 sec (74-137)
[2017-08-05 14:52] LABS: Anion Gap 8 (5-15); BUN 21 mg/dL (7-18); BUN/Creat Ratio 23.9 RATIO (10-20); Calcium,Total 8.7 mg/dL (8.5-10.1); Chloride 108 mmol/L (98-107); Creatinine, Serum 0.88 mg/dL (0.70-1.30); EST Glomerular Filtration Rate 89 mL/min (>60); Est Glom Filt Rate - Afr Amer 108 mL/min (>60); Estimated Creatinine Clearance 65.72 ml/min; Glucose 92 mg/dL (74-106); Potassium 4.2 mmol/L (3.5-5.1); Sodium Level 143 mmol/L (136-145)
== END 2017-07-28 16:10 | disposition home or self-care (01) | DRG 247 ==
LOC: ED 09:28 → PCU 12:11
PROVIDERS: Internal Medicine; Internal Medicine Cardiovascular Disease; Admitting Provider Internal Medicine; Emergency Provider Emergency Medicine; Family Provider Nurse Practitioner Adult Health; PCP Nurse Practitioner Adult Health; Visit Provider Internal Medicine
DX: I25.110 Atherosclerotic heart disease of native coronary artery with unstable angina pectoris (principal); I47.2 Ventricular tachycardia; F17.210 Nicotine dependence, cigarettes, uncomplicated; E78.5 Hyperlipidemia, unspecified; S60.211A Contusion of right wrist, initial encounter; Y84.0 Cardiac catheterization as the cause of abnormal reaction of the patient, or of later complication, without mention of misadventure at the time of the procedure
CPT/HCPCS: 36415; 71045; 80048; 80061; 83735; 84484; 85025; 85027; 85347; 85610; 85730; 92928; 93005; 93306; 93458; 99152; 99153; 99283; J7030; Q9967; A4216; C1725; C1769; C1874; C1887; C1894; C9600

== ENCOUNTER → 2017-09-03 10:39 | Outpatient (CLI) | payer MEDICARE, OTHER, SELFPAY ==
[2017-09-03 12:06] LABS: AST(SGOT) 15 U/L (15-37); Alanine Aminotransfer ALT/SGPT 27 U/L (16-61); Albumin, Serum 3.6 g/dL (3.2-5.0); Alkaline Phosphatase 87 U/L (45-117); Bilirubin, Direct 0.16 mg/dL (0.00-0.30); Cholesterol 111 mg/dL (200); Globulin 3.3 g/dL (2.2-4.2); High Density Lipoprotein 49 mg/dL; Protein, Total 6.9 g/dL (6.4-8.2); Triglycerides 78 mg/dL; Very Low Density Lipoprotein 16 mg/dL (5-40)
== END ==
PROVIDERS: Family Provider Nurse Practitioner Adult Health; PCP Nurse Practitioner Adult Health; Visit Provider Internal Medicine Cardiovascular Disease
DX: E78.5 Hyperlipidemia, unspecified (principal)
CPT/HCPCS: 36415; 80061; 80076

== ENCOUNTER → 2017-09-15 06:46 | Outpatient (CLI) | payer MEDICARE, OTHER, SELFPAY ==
--- NOTE | 2017-09-15 16:15 | STRESSREP ---
Stress Test Report Date: 09/15/2017 Procedure: Exercise tolerance test/imaging study Indications: Chest pain; shortness of breath/dyspnea; fatigue; CAD; PCI Consent: Per the patient Procedure: The patient exercised on a Jered protocol for 3 minutes and 45 seconds completing Stage I and 45 seconds of Stage II achieving a peak heart rate of 127 bpm (88 % predicted maximal heart rate) with a peak blood pressure 172/70 mmHg and a peak MET capacity of 5 METs. The baseline ECG demonstrated normal sinus rhythm. The peak exercise ECG demonstrated no obvious G changes. There was an occasional PVC during exercise and recovery. The functional capacity was considered average. There was no complaint of chest discomfort during exercise or recovery. The examination was discontinued secondary to dyspnea. Impression: 1. Technically adequate (percent predicted maximal heart rate greater than 85%) exercise tolerance test 2. Peak exercise ECG demonstrated no obvious ECG changes 3. There was an occasional PVC during exercise and recovery. 4. Nuclear images pending Myocardial perfusion imaging study: Technique: The patient was injected with 10 mCi of technetium 99m Cardiolite and subsequently rest SPECT Cardiolite nuclear imaging was obtained in the horizontal long, vertical long, and short axis views. The patient exercised on a Jered protocol for 3 minutes and 45 seconds completing Stage I and 45 seconds of Stage II achieving a peak heart rate of 127 bpm (88 % predicted maximal heart rate) with a peak blood pressure 172/70 mmHg and a peak MET capacity of 5 METs. The patient was injected with 32.6 mCi of technetium 99m Cardiolite and subsequently stress SPECT Cardiolite nuclear imaging was obtained in the horizontal long, vertical long, and short axis views. A gated Cardiolite study at peak stress was obtained. Interpretation: Rest and stress SPECT Cardiolite nuclear imaging status post realignment, normalization, and attenuation correction, demonstrates the appearance of relative uniform tracer uptake and myocardial perfusion appearing within normal limits. There is end systolic thickening and brightening. The gated Cardiolite study demonstrates myocardial thickening and inward wall motion. The reported LVEF is 70 %. Impression: 1. Rest and stress SPECT Cardiolite nuclear imaging demonstrate relative uniform tracer uptake and myocardial perfusion appearing within normal limits. 2. The gated Cardiolite study reports an LVEF of 70 %. This note was generated with The [employer] software. It may contain incorrect words, spelling, and punctuation that were not noted in checking the note before signing.
--- NOTE | 2017-09-15 16:19 | STRESSREP_ITS ---
Stress Test Report Date: 09/15/2017 Procedure: Exercise tolerance test/imaging study Indications: Chest pain; shortness of breath/dyspnea; fatigue; CAD; PCI Consent: Per the patient Procedure: The patient exercised on a Jered protocol for 3 minutes and 45 seconds completing Stage I and 45 seconds of Stage II achieving a peak heart rate of 127 bpm (88 % predicted maximal heart rate) with a peak blood pressure 172/70 mmHg and a peak MET capacity of 5 METs. The baseline ECG demonstrated normal sinus rhythm. The peak exercise ECG demonstrated no obvious G changes. There was an occasional PVC during exercise and recovery. The functional capacity was considered average. There was no complaint of chest discomfort during exercise or recovery. The examination was discontinued secondary to dyspnea. Impression: 1. Technically adequate (percent predicted maximal heart rate greater than 85% ) exercise tolerance test 2. Peak exercise ECG demonstrated no obvious ECG changes 3. There was an occasional PVC during exercise and recovery. 4. Nuclear images pending Myocardial perfusion imaging study: Technique: The patient was injected with 10 mCi of technetium 99m Cardiolite and subsequently rest SPECT Cardiolite nuclear imaging was obtained in the horizontal long, vertical long, and short axis views. The patient exercised on a Jered protocol for 3 minutes and 45 seconds completing Stage I and 45 seconds of Stage II achieving a peak heart rate of 127 bpm (88 % predicted maximal heart rate) with a peak blood pressure 172/70 mmHg and a peak MET capacity of 5 METs. The patient was injected with 32.6 mCi of technetium 99m Cardiolite and subsequently stress SPECT Cardiolite nuclear imaging was obtained in the horizontal long, vertical long, and short axis views. A gated Cardiolite study at peak stress was obtained. Interpretation: Rest and stress SPECT Cardiolite nuclear imaging status post realignment, normalization, and attenuation correction, demonstrates the appearance of relative uniform tracer uptake and myocardial perfusion appearing within normal limits. There is end systolic thickening and brightening. The gated Cardiolite study demonstrates myocardial thickening and inward wall motion. The reported LVEF is 70 %. Impression: 1. Rest and stress SPECT Cardiolite nuclear imaging demonstrate relative uniform tracer uptake and myocardial perfusion appearing within normal limits. 2. The gated Cardiolite study reports an LVEF of 70 %. This note was generated with [employer] software. It may contain incorrect words, spelling, and punctuation that were not noted in checking the note before signing.
== END ==
PROVIDERS: Family Provider Nurse Practitioner Adult Health; PCP Nurse Practitioner Adult Health; Visit Provider Internal Medicine Cardiovascular Disease
DX: I25.10 Atherosclerotic heart disease of native coronary artery without angina pectoris (principal)
CPT/HCPCS: 78452; 93017; A9500; A4216

== ENCOUNTER → 2018-03-30 10:25 | Outpatient (CLI) | payer MEDICARE, OTHER, SELFPAY ==
[2018-03-26 13:16] VITALS: BMI 26.2
[2018-03-30 11:59] LABS: AST(SGOT) 16 U/L (15-37); Alanine Aminotransfer ALT/SGPT 21 U/L (16-61); Albumin, Serum 3.5 g/dL (3.2-5.0); Alkaline Phosphatase 83 U/L (45-117); Bilirubin, Direct 0.14 mg/dL (0.00-0.30); Cholesterol 120 mg/dL (200); Globulin 3.4 g/dL (2.2-4.2); High Density Lipoprotein 60 mg/dL; Protein, Total 6.9 g/dL (6.4-8.2); Triglycerides 71 mg/dL; Very Low Density Lipoprotein 14 mg/dL (5-40)
== END ==
PROVIDERS: Referring Provider Internal Medicine Cardiovascular Disease; Visit Provider Internal Medicine Cardiovascular Disease
DX: I25.10 Atherosclerotic heart disease of native coronary artery without angina pectoris (principal); E78.5 Hyperlipidemia, unspecified
CPT/HCPCS: 36415; 80061; 80076

== ENCOUNTER → 2018-09-23 | Outpatient (CLI) | payer MEDICARE, OTHER, SELFPAY ==
[2018-09-23 11:07] VITALS: BMI 26.4
[2018-09-23 12:57] LABS: Absolute Lymphocyte Count 1.59 X10^3/uL (0.83-4.51); Absolute Neutrophil Count 4.4 X10^3/uL (2.0-7.7); Basophil# 0.05 X10^3/uL; Basophil% 0.7 % (0-1); Eosinophils% 4.3 % (0-5); Hematocrit 40.6 % (40-54); Hemoglobin 12.8 g/dL (13.0-16.5); Lymphocyte # 1.59 X10^3/ul (4.0); Mean Corp Hgb Conc 31.5 g/dL (32-36); Mean Corpuscular Hgb 28.2 pg (27.0-32.0); Mean Corpuscular Volume 89.4 fL (80-94); Mean Platelet Vol. 9.1 fl (6.2-12.0); Monocyte# 0.59 X10^3/uL; Monocyte% 8.5 % (0-10); NRBC Flagged by Analyzer 0 % (0-5); Neutrophil # 4.36 X10^3/uL (2.7-7.7); Neutrophil % 63.1 % (47-70); Platelet Count 197 K/mm3 (150-450); RBC Distribution Width CV 14.2 % (11.6-14.6); RBC Distribution Width SD 45.6 fl (35.1-43.9); Red Blood Count 4.54 M/mm3 (4.6-6.2); White Blood Count 6.9 K/mm3 (4.4-11.0)
[2018-09-23 13:22] LABS: AST(SGOT) 17 U/L (15-37); Alanine Aminotransfer ALT/SGPT 22 U/L (16-61); Albumin, Serum 3.3 g/dL (3.2-5.0); Alkaline Phosphatase 87 U/L (45-117); Bilirubin, Direct 0.12 mg/dL (0.00-0.30); Cholesterol 111 mg/dL (200); Globulin 2.9 g/dL (2.2-4.2); High Density Lipoprotein 54 mg/dL; Protein, Total 6.2 g/dL (6.4-8.2); Triglycerides 124 mg/dL; Very Low Density Lipoprotein 25 mg/dL (5-40)
== END | disposition home or self-care (01) ==
LOC: LAB 11:51
PROVIDERS: Family Provider Nurse Practitioner Adult Health; PCP Nurse Practitioner Adult Health; Referring Provider Physician Assistant Medical; Visit Provider Physician Assistant Medical
DX: I25.10 Atherosclerotic heart disease of native coronary artery without angina pectoris (principal); E78.5 Hyperlipidemia, unspecified; I10 Essential (primary) hypertension
CPT/HCPCS: 36415; 80061; 80076; 85025

== ENCOUNTER → 2019-07-11 08:36 | Outpatient (CLI) | payer MEDICARE, OTHER, SELFPAY ==
[2019-07-04 09:59] VITALS: BMI 25.8
--- NOTE | 2019-07-11 08:39 | RAD_ITS ---
STUDY: X-RAY CHEST REASON FOR EXAM: Male, 78 years old. [place]. HX HEART STENT INSERTION TECHNIQUE: Single AP portable view of the chest. COMPARISON: Prior study of 08-10 FINDINGS: The lungs are clear and expanded. There is no demonstrated pleural abnormality. Normal size heart. Normal mediastinum and christianne. Normal visualized pulmonary arteries. There are calcified plaques of the aortic arch. There are diffuse degenerative changes of the visualized thoracic spine. Normal visualized ribs, clavicles, and shoulders. There is no demonstrated abnormality of the visualized soft tissue structures of the upper abdomen. RAD/Chest PA and Lateral IMPRESSION: Calcified plaques in the aortic arch. Degenerative changes of the thoracic spine. No acute cardiopulmonary disease process is seen. Electronically Signed: Jose Manuel Magaña MD at 16:51 EDT , Service support ,
[2019-07-11 08:55] LABS: Absolute Lymphocyte Count 1.57 X10^3/uL (0.83-4.51); Absolute Neutrophil Count 3.6 X10^3/uL (2.0-7.7); Basophil# 0.04 X10^3/uL; Basophil% 0.7 % (0-1); Eosinophil# 0.28 X10^3/uL; Eosinophils% 4.7 % (0-5); Hematocrit 40.4 % (40-54); Hemoglobin 12.9 g/dL (13.0-16.5); Lymphocyte # 1.57 X10^3/ul (4.0); Lymphocyte % 26.3 % (19-41); Mean Corp Hgb Conc 31.9 g/dL (32-36); Mean Corpuscular Hgb 28.2 pg (27.0-32.0); Mean Corpuscular Volume 88.2 fL (80-94); Mean Platelet Vol. 8.4 fl (6.2-12.0); Monocyte# 0.51 X10^3/uL; Monocyte% 8.5 % (0-10); NRBC Flagged by Analyzer 0 % (0-5); Neutrophil # 3.57 X10^3/uL (2.7-7.7); Neutrophil % 59.6 % (47-70); Platelet Count 178 K/mm3 (150-450); RBC Distribution Width CV 14.6 % (11.6-14.6); RBC Distribution Width SD 46.7 fl (35.1-43.9); Red Blood Count 4.58 M/mm3 (4.6-6.2)
[2019-07-11 09:26] LABS: AST(SGOT) 20 U/L (15-37); Alanine Aminotransfer ALT/SGPT 25 U/L (16-61); Albumin, Serum 3.5 g/dL (3.2-5.0); Alkaline Phosphatase 78 U/L (45-117); Anion Gap 3 (5-15); BUN 18 mg/dL (7-18); Bilirubin, Direct 0.18 mg/dL (0.00-0.30); Calcium,Total 8.7 mg/dL (8.5-10.1); Chloride 105 mmol/L (98-107); Cholesterol 136 mg/dL (200); Creatinine, Serum 1.06 mg/dL (0.70-1.30); EST Glomerular Filtration Rate 72 mL/min (>60); Est Glom Filt Rate - Afr Amer 87 mL/min (>60); Glucose 93 mg/dL (74-106); High Density Lipoprotein 62 mg/dL; Potassium 4.4 mmol/L (3.5-5.1); Protein, Total 6.5 g/dL (6.4-8.2); Sodium Level 140 mmol/L (136-145); Triglycerides 74 mg/dL; Very Low Density Lipoprotein 15 mg/dL (5-40)
== END ==
PROVIDERS: PCP Nurse Practitioner Adult Health; Referring Provider Internal Medicine Cardiovascular Disease; Visit Provider Internal Medicine Cardiovascular Disease
DX: R06.00 Dyspnea, unspecified (principal); I25.10 Atherosclerotic heart disease of native coronary artery without angina pectoris; I10 Essential (primary) hypertension; E78.00 Pure hypercholesterolemia, unspecified; Z95.5 Presence of coronary angioplasty implant and graft
CPT/HCPCS: 36415; 71046; 80048; 80061; 80076; 85025

== ENCOUNTER → 2019-07-26 11:33 | Outpatient (CLI) | payer MEDICARE, OTHER, SELFPAY ==
[2019-07-26 10:41] VITALS: BMI 25.8
[2019-07-26 11:36] LABS: Bacteria 0 SEEN /hpf (None Seen); Mucous, Urine 0 SEEN /hpf (<or=2+); Red Blood Cells-Urine 0 SEEN /hpf (0-5); Squamous Epithelial Cells - UA 0 SEEN /hpf (0-5); White Blood Cells 0 SEEN /hpf (0-5)
[2019-07-26 15:04] LABS: Color, Urine Yellow (Yellow); Glucose, Dipstick Normal (Normal); Ketone-Dipstick Negative (Negative); Leukocyte Esterase-Dipstick Negative /ul (Negative); Nitrite-Dipstick Negative (Negative); Occult Blood-Urine Negative /ul (Negative); Protein-Dipstick Negative (Negative); Urine Bilirubin Dipstick Negative (Negative); Urine Clarity Clear (Clear); Urine Urobilinogen Normal (Normal)
== END ==
PROVIDERS: PCP Internal Medicine; Referring Provider Internal Medicine; Visit Provider Internal Medicine
DX: N40.0 Benign prostatic hyperplasia without lower urinary tract symptoms (principal)
CPT/HCPCS: 36415; 81001; 84153; G0103

== ENCOUNTER → 2019-07-27 06:28 | Outpatient (CLI) | payer MEDICARE, OTHER, SELFPAY ==
[2019-07-04 09:59] VITALS: BMI 25.8
[2019-07-26 10:41] VITALS: BMI 25.8
--- NOTE | 2019-07-27 06:30 | ECHOD_ITS ---
Reason For Study: SOB Procedure This was a 2D Doppler, Color Flow transthoracic echocardiogram. The study was technically difficult. Exam performed in department. Left Ventricle Normal LV size. Left ventricular systolic function is normal. The estimated ejection fraction is 65 %. No evidence for diastolic dysfunction. No regional wall motion abnormalities noted. Right Ventricle Normal RV size. Normal systolic function. Atria Normal left atrium. Normal right atrium. No doppler evidence for ASD. Mitral Valve There is no mitral annular calcification. Normal mitral valve. Trivial mitral valve insufficiency. Tricuspid Valve Normal tricuspid valve. Trivial tricuspid valve insufficiency. Right ventricular systolic pressure estimated to be 27 mmHg. Aortic Valve The aortic valve is not well visualized. Moderate focal aortic valve calcification. Pulmonic Valve The pulmonic valve is not well visualized. Great Vessels Normal sized aortic root. Pericardium/Pleural No pericardial effusion. MMode/2D Measurements & Calculations LVIDd: 3.7 cm IVSd: 1.2 cm LVOT diam: 2.2 cm LVIDs: 2.0 cm LVPWd: 0.97 cm LVOT area: 3.9 cm2 RVDd: 3.2 cm FS: 45.2 % Ao root diam: 3.8 cm LAV(MOD-bp): 43.2 ml LA A4 area: 16.7 cm2 LAV(MOD-bp) Indexed: 23.0 ml/m2 LAV(MOD-sp2): 41.2 ml LAV(MOD-sp4): 43.9 ml LA dimension(2D): 3.7 cm RA A4 area: 15.1 cm2 Doppler Measurements & Calculations MV E max enoch: 72.2 cm/sec Lat Peak E' Enoch: 7.8 cm/sec Med Peak E' Enoch: 8.4 cm/sec MV A max enoch: 83.5 cm/sec E/E' lat: 9.3 E/E' med: 8.6 MV E/A: 0.86 Ao V2 max: 143.4 cm/sec LV V1 max: 91.7 cm/sec SV(LVOT): 77.5 ml Ao max P.2 mmHg LV V1 max P.4 mmHg Ao V2 mean: 92.3 cm/sec LV V1 mean P.8 mmHg Ao mean P.9 mmHg LV V1 mean: 63.2 cm/sec Ao V2 VTI: 27.3 cm LV V1 VTI: 20.0 cm ТАТЬЯНА(I,D): 2.8 cm2 ТАТЬЯНА(V,D): 2.5 cm2 PA V2 max: 100.9 cm/sec TR max enoch: 246.4 cm/sec TR max P.3 mmHg Interpretation Summary The study was technically difficult. Left ventricular systolic function is normal. The estimated ejection fraction is 65 %. Trivial mitral valve insufficiency. Trivial tricuspid valve insufficiency. Moderate focal aortic valve calcification. Right ventricular systolic pressure estimated to be 27 mmHg. No evidence for diastolic dysfunction. Ordering Physician: Graham Matta Referring Physician: Robert Hutchinson Performed By: Poornima Hannah [facility]
--- NOTE | 2019-07-27 10:19 | STRESSREP_ITS ---
Stress Test Report Date: ? Procedure: Pharmacologic stress nuclear imaging study Indications: Shortness of breath/dyspnea on exertion; CAD; PCI Consent: Per the patient Procedure: The patient underwent pharmacologic (Regadenoson) evaluation with a peak heart rate of 103 beats per minute (73 %predicted maximal heart rate) and a peak blood pressure of 140/78 mmHg. The baseline ECG demonstrated normal sinus rhythm. The peak pharmacologic ECG demonstrated no obvious ECG changes. There were no cardiac dysrhythmias pretest, during pharmacologic infusion, or recovery. There was no complaint of chest discomfort during pharmacologic infusion or recovery. The examination was discontinued secondary to completion of protocol. Impression: 1. Pharmacologic (Regadenoson) evaluation 2. Peak pharmacologic ECG with no obvious ECG changes. 3. There were no cardiac dysrhythmias pretest, during pharmacologic infusion, or recovery. 4. Nuclear images pending Myocardial perfusion imaging study: Technique: The patient was injected with 11.5 millicuries of technetium 99m Cardiolite and subsequently rest SPECT Cardiolite nuclear imaging was obtained in the horizontal long, vertical long, and short axis views. The patient underwent pharmacologic (Regadenoson) evaluation with a peak heart rate of 103 beats per minute (73 % percent predicted maximal heart rate) and a peak blood pressure of 140/78 mmHg. The patient was injected with 35.6 millicuries of technetium 99m Cardiolite and subsequently stress SPECT Cardiolite nuclear imaging was obtained in the horizontal long, vertical long, and short axis views. A gated Cardiolite study at peak stress was obtained. Interpretation: Rest and stress SPECT Cardiolite nuclear imaging status post realignment, normalization, and attenuation correction demonstrate relative uniform tracer uptake and myocardial perfusion appearing within normal limits. There is end systolic thickening and brightening. The gated Cardiolite study demonstrates myocardial thickening and inward wall motion. The reported LVEF is 70 %. Impression: 1. Rest and stress SPECT Cardiolite nuclear imaging demonstrate relative uniform tracer uptake and myocardial perfusion appearing within normal limits. 2. The gated Cardiolite study reports an LVEF of 70 %. This note was generated with [employer] software. It may contain incorrect words, spelling, and punctuation that were not noted in checking the note before signing.
== END ==
PROVIDERS: PCP Internal Medicine; Referring Provider Internal Medicine Cardiovascular Disease; Visit Provider Internal Medicine Cardiovascular Disease
DX: R06.00 Dyspnea, unspecified (principal); I25.10 Atherosclerotic heart disease of native coronary artery without angina pectoris; I10 Essential (primary) hypertension; E78.00 Pure hypercholesterolemia, unspecified; Z95.5 Presence of coronary angioplasty implant and graft
CPT/HCPCS: 78452; 93017; 93306; A9500; A4216; J2785

== ENCOUNTER → 2019-08-01 | Outpatient (CLI) | payer MEDICARE, OTHER, SELFPAY ==
[2019-07-26 10:41] VITALS: BMI 25.8
--- NOTE | 2019-08-01 09:40 | US_ITS ---
PROCEDURES: TRANSRECTAL ULTRASOUND GUIDED - PROSTATE REASON FOR EXAM: Male, 78 years old. BPH TECHNIQUE: Ultrasound evaluation of the prostate was performed with real-time and static lua-scale imaging. BIOPSY: A needle core biopsy was perform. A consent form was signed, PT-PTT levels checked and a time-out was called. The patient is currently off any anticoagulant therapy. Cleansing enema: Yes COMPARISON: None. FINDINGS: Prostate Volume: 30.8 cm3 There is a 2.2 cm x 1.9 cm x 2.3 cm hypoechoic nodule in the right peripheral zone of the prostate. A biopsy is recommended. The seminal vesicles appear normal without evidence of nodules or lesions. US/Prostate IMPRESSION: 2.2 cm x 1.9 cm x 2.3 cm hypoechoic nodule in the right peripheral zone of the prostate. A biopsy is recommended. Electronically Signed: Daniel Vasquez, at 14:33 EDT , Service support ,
== END | disposition home or self-care (01) ==
LOC: US 09:40
PROVIDERS: PCP Internal Medicine; Referring Provider Internal Medicine; Visit Provider Internal Medicine
DX: N40.0 Benign prostatic hyperplasia without lower urinary tract symptoms (principal); N53.19 Other ejaculatory dysfunction
CPT/HCPCS: 76872

== ENCOUNTER → 2019-08-30 | Outpatient (CLI) | payer MEDICARE, OTHER, SELFPAY ==
[2019-07-26 10:41] VITALS: BMI 25.8
--- NOTE | 2019-08-30 | IMM_PTH ---
PATIENT: JAGDEEP WALTERS LOC: [facility] U#:[id number] AGE/SX: 78/M ROOM: RE08/30/[address]: Dr. Som Childs MD : 1940 BED: DIS: 08/30/2019 SPEC #: [id number] RECD: 09/01/19 10:45 STATUS: YISEL REQ #: [id number] NAHUN: 08/30/19 00:[address]: Som Childs DEPT: IMMUNOHISTOCHEMISTRY RECD BY: Taylor Delarosa ENTERED: 09/01/19 10:51 SP TYPE: IMMUNO OTHR DR: Dr. Robert Hutchinson MD Tissues: D - PROSTATE LEFT Procedures: S100 (initial) PHYSICIAN & INSTITUTION [place] [id number] SPECIMEN INFORMATION: Tissue Source: D - Left prostate, apex, core biopsy Clinical Info: Elevated PSA Specimen Number: [id number] CPT code: 70577 METHODOLOGY: Deparaffinized sections of prefer/formalin-fixed tissue or PAP/DQ stained slides are incubated with monoclonal/polyclonal antibodies/oligonucleotide probes. Localization is made via biotin free immunoperoxidase method. Appropriate controls are performed and reacted as expected. Results on target cell population are indicated in the following table: RESULTS: ANTIBODY / CLONE RESULT Block D S-100 (4C4.9) positive These tests were developed and their performance characteristics determined by [facility]. They may not have been cleared or approved by the U.S. Food and Drug Administration. The FDA has determined that such clearance or approval is not necessary. The above immunohistochemical/dualISH markers are ordered and reviewed by the Pathologist. INTERPRETATION: D. Left prostate, apex, core biopsy: Focal perineural invasion suspected. AM:sadaf 09/02/19
--- NOTE | 2019-08-30 11:30 | PROSBIL_PTH ---
PATIENT: JAGDEEP WALTERS LOC: [facility] U#:[id number] AGE/SX: 78/M ROOM: RE08/30/[address]: Dr. Som Childs MD : 1940 BED: DIS: 08/30/2019 SPEC #: [id number] RECD: 08/30/19 18:22 STATUS: YISEL REIvette #: [id number] NAHUN: 08/30/19 11:[address]: Som Childs DEPT: SURGICAL PATHOLOGY RECD BY: Kevin Lilly ENTERED: 08/31/19 09:22 SP TYPE: PROST BX HARRISON DR: Dr. Robert Hutchinson MD Tissues: A - PROSTATE RIGHT B - PROSTATE RIGHT C - PROSTATE LEFT D - PROSTATE LEFT Procedures: PROSTATE BX HEADER OPERATION: Prostate biopsy PRE-OP DIAGNOSIS: Elevated PSA TISSUE SUBMITTED: A - Right mid, B - Right base, C - Left mid, D - Left base MICROSCOPIC DIAGNOSIS A. Right prostate, mid, core biopsy: Adenocarcinoma. [place] grade: 7 (4+3) Cores involved: 1 out of 1 Tissue involved: 100% Greatest tumor length: 13.5 mm B. Right prostate, base, core biopsy: Adenocarcinoma. [place]ady grade: 7 (4+3) Cores involved: 1 out of 1 Tissue involved: 100% Greatest tumor length: 11 mm C. Left prostate, mid, core biopsy: Adenocarcinoma. Grady grade: 7 (4+3) Cores involved: 1 out of 1 Tissue involved: 40% Greatest tumor length: 3.5 mm D. Left prostate, base, core biopsy: Adenocarcinoma. [place] grade: 7 (4+3) Cores involved: 1 out of 1 Tissue involved: 50% Greatest tumor length: 6 mm Focal perineural invasion. See comment. AM:sadaf 09/01/19 COMMENT D. Immunohistochemistry ([id number]) supports the above diagnosis. Case has been reviewed in consultation with Dr. Moses who concurs with the above diagnosis. IDC:SJ MICROSCOPIC DESCRIPTION Slides are reviewed. GROSS DESCRIPTION A - Received is one container designated prostate, right mid. The specimen consists of one elongated fragment of light granados-white soft tissue measuring 1.5 cm in length and 0.1 cm in diameter. The specimen is totally submitted in one cassette. B - Received is one container designated prostate, right base. The specimen consists of one elongated fragment of light granados-white soft tissue measuring 1 cm in length and 0.1 cm in diameter. The specimen is totally submitted in one cassette. C - Received is one container designated prostate, left mid. The specimen consists of one elongated fragment of light granados-white soft tissue measuring 0.8 cm in length and 0.1 cm in diameter. The specimen is totally submitted in one cassette. D - Received is one container designated prostate, left base. The specimen consists of one elongated fragment of light granados-white soft tissue measuring 1.2 cm in length and 0.1 cm in diameter. The specimen is totally submitted in one cassette. / SJ:rg 08/31/19 TC:0 CPT: G0146
== END | disposition home or self-care (01) ==
LOC: LABSPEC 16:26
PROVIDERS: PCP Internal Medicine; Referring Provider Urology; Visit Provider Urology
DX: N40.2 Nodular prostate without lower urinary tract symptoms (principal); R97.20 Elevated prostate specific antigen [PSA]
CPT/HCPCS: 88305; 88342; G0416

== ENCOUNTER → 2019-09-13 09:22 | Outpatient (CLI) | payer MEDICARE, OTHER, SELFPAY ==
[2019-07-26 10:41] VITALS: BMI 25.8
--- NOTE | 2019-09-13 09:26 | NM_ITS ---
CLINICAL: 78-year-old male with recent diagnosis of primary prostate carcinoma. WHOLE BODY 99m Tc MDP RADIONUCLIDE BONE SCINTIGRAPHY COMPARISON: None available FINDINGS: Following the intravenous administration of 27.2 mCi of 99m Tc MDP, whole body bone images reveal: 1. Increased radiopharmaceutical concentration is identified in the glenohumeral and sternoclavicular compartments of both shoulders, acromioclavicular compartment of the left shoulder, bilateral wrists and hands, medial tibial and patellofemoral compartments of both knees, the left forefoot, mid cervical spine posteriorly on the right, lower cervical spine posteriorly on the left, eighth thoracic vertebra posteriorly on the right, third-fifth lumbar vertebra. 2. An increase in tracer distribution is defined in the right ankle articulation. 3. The remaining skeletal structures are scintigraphically unremarkable with normal-appearing renal images and urinary bladder activity identified. NM/Bone Scan Whole Body IMPRESSION: 1. The increase in radiopharmaceutical concentration currently defined in the cervical, thoracic and lumbar spine, bilateral shoulders, both wrists, hands bilaterally, right and left knees, the left forefoot is most consistent with degenerative arthritis. 2. Facilitated uptake defined in the right ankle articulation is commensurate with previous surgical intervention-orthopedic hardware placement. If infection is a diagnostic consideration, correlation with labeled leukocyte imaging is recommended. 3. There is no typical scintigraphic evidence of diffuse axial skeletal metastatic disease on the current examination. Electronically Signed: Christopher Lopes DO at 22:39 EDT Tel , Service support ,
== END ==
PROVIDERS: PCP Internal Medicine; Referring Provider Urology; Visit Provider Urology
DX: C61 Malignant neoplasm of prostate (principal)
CPT/HCPCS: 78306

== ENCOUNTER → 2019-09-16 07:18 | Outpatient (CLI) | payer MEDICARE, OTHER, SELFPAY ==
[2019-07-26 10:41] VITALS: BMI 25.8
--- NOTE | 2019-09-16 07:21 | CT_ITS ---
STUDY: CT ABDOMEN AND PELVIS WITH CONTRAST REASON FOR EXAM: Male, 78 years old. NEOPLASM OF PROSTATE, new diagnosis. 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 Delays included in exam RADIATION DOSAGE (If Supplied By Facility): CTDIvol = ( 13.05 ) mGy, DLP = ( 20281.69 ) mGycm TECHNIQUE: Transaxial images were obtained from the dome of the diaphragm to the symphysis pubis with oral contrast. Oral and amp; IV Readi-CAT and amp; 100mL Isovue-300 was administered. Sagittal and coronal images were reconstructed. Individualized dose optimization techniques were used for this CT. COMPARISON: None. FINDINGS: The visualized lung bases show underlying emphysema with chronic interstitial changes.. The visualized portions of the heart are within normal limits. Normal liver. There are multiple gallstones including two in the neck of the gallbladder.. Normal spleen. Normal pancreas. There is a bowel loop interposed between the anterior edge of the liver in the peritoneal surface which can cause pain in the right clinical setting. Normal bilateral adrenal glands. No obstructive uropathy, incidental note is made of a retroaortic left renal vein Normal visualized stomach. Normal small intestine. Sigmoid diverticulosis is noted without CT evidence of acute diverticulitis. There is nonspecific thickening of the sigmoid colon and underlying lesion cannot be excluded. The appendix is visualized and appears normal. Appendix best seen on coronal recon image sixty-one Peripheral calcifications noted in the abdominal aorta. 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 The maximum dimension of the aneurysm is 3.4 cm, the dissection is seen best on axial images forty-four through forty-eight, and does not involve either iliac artery. There is no CT evidence of leak or retroperitoneal hemorrhage. Normal inferior vena cava. There are scattered subcentimeter periaortic, retroperitoneal lymph nodes. Normal urinary bladder. Prostate is mildly enlarged and impinging upon the inferior bladder. No suspicious pelvic lymph nodes Normal abdominal wall. There are diffuse degenerative changes of the visualized lumbar spine, and pelvis. CT/Abdomen/Pelvis WITH Contrast IMPRESSION: Peripheral calcifications in the abdominal aorta. 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 Neither the aneurysm nor the dissection involves either common iliac artery. No evidence of leak or retroperitoneal hemorrhage. No suspicious solid organ abnormality Sigmoid diverticulosis, there is nonspecific thickening of the sigmoid colon and an underlying lesion cannot be excluded but there is no CT evidence of acute diverticulitis. Mild prostate enlargement Degenerative bony changes Electronically Signed: Carmine Riddle MD at 8:49 EDT , Service support ,
[2019-09-16 07:36] LABS: CREATININE FINGERSTICK 0.7 mg/dL (0.70-1.30); EGFR FINGERSTICK > 60.0000 mL/min (>60)
== END ==
PROVIDERS: PCP Internal Medicine; Referring Provider Urology; Visit Provider Urology
DX: C61 Malignant neoplasm of prostate (principal)
CPT/HCPCS: 74177; Q9967

== ENCOUNTER 2019-10-21 05:15 | Day surgery (SDC) | payer MEDICARE, OTHER, SELFPAY ==
[2019-07-26 10:41] VITALS: BMI 25.8
[2019-10-21 05:51] VITALS: BP 122/60; PULSE 69; RESP 16; TEMP 36.6; O2SAT 95; BMI 26.7
[2019-10-21] MEDS: Lactated Ringers 1,000 ML 100 ML IV (06:09)
[2019-10-21] MEDS: Cefazolin 2 GM in 0.9% Normal Saline 100 ML IV (07:23)
--- NOTE | 2019-10-21 07:26 | PCM.HP.STD ---
History of Present Illness Date of Admission: 10/21/19 Chief Complaint: Prostate cancer The patient is a 78 year old male with a PSA of 23 Allen 7 high-grade prostate cancer negative metastatic work-up presents today for placement of fiducial markers and spacer gel and he is planning to have radiation therapy. 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) S04.9XXS S04.9xxS late effect injury frontal branch left facial nerve after excision melanoma oriental orthodox area with development eyebrow ptosis Acquired blepharoptosis of left eyelid (Chronic) H02.402 H02.402 acquired ptosis left eyebrow Personal history of malignant melanoma (Chronic) Z85.820 Z85.820 Malignant melanoma of face (Chronic) C43.30 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 oriental orthodox (shave thickness of 0.45 mm) Actinic keratosis (Chronic) L57.0 L57.0 7 mm actinic keratosis left medial chest wall Family history of skin cancer (Chronic) Z80.8 Z80.8 Smoker (Chronic) F17.200 F17.200 Open forehead wound (Acute) S01.80XA 1.9 cm lentigo maligna melanoma wound left oriental orthodox GERD (gastroesophageal reflux disease) K21.9 Hearing loss H91.90 HTN (hypertension) (Inactive) I10 Allergies No Known Allergies Allergy (Verified 10/12/19 11:18) Home Medications: Ambulatory Orders Medication Instructions Recorded aspirin 81 mg tablet,delayed 81 mg PO QDAY 08/27/17 release multivitamin 1 tab PO QDAY 08/27/17 metoprolol tartrate 50 mg tablet 50 mg PO BID #180 tab 08/18/19 isosorbide mononitrate 60 mg 60 mg PO DAILY #90 tab 08/29/19 tablet,extended release 24 hr clopidogrel 75 mg tablet 75 mg PO QDAY #90 tab 09/26/19 tamsulosin 0.4 mg capsule 0.4 mg PO DAILY #30 cap 09/26/19 Bicalutamide 50 mg PO DAILY 10/12/19 atorvastatin 40 mg tablet 40 mg PO QDAY #90 tab 10/20/19 Surgical History: Surgical History (Last Reviewed 07/26/19 @ 10:35 by Erwin Malcolm) Presence of stent in coronary artery (Chronic) Onset Date: ~07/28/17 Z95.5 PTCA/PILO of the Prx and Mid RCA 07/28/17 History of fracture of finger Z87.81 History of local excision of skin lesion Z98.890 Multiple sugeries removing melanoma from [place], Chest History of tonsillectomy Z90.89 Hx of vasectomy Z98.52 Postsurgical percutaneous transluminal coronary angioplasty (PTCA) status Onset Date: ~07/28/17 Z98.61 PTCA/PILO ot the Prox and Mid RCA 07/28/17 Surgical History: - - melanoma removal, right foot repair. Psychiatric History: No pertinent psych hx Smoking Status: Current every day smoker Tobacco Use: Cigars - *Family History Sibling Family History: Family History (Last Reviewed 07/26/19 @ 10:35 by Erwin Malcolm) Other Arthritis Atrial fibrillation Heart disease Osteoporosis Skin cancer History Items: Heart Disease Maternal Family History: Family History (Last Reviewed 07/26/19 @ 10:35 by Erwin Malcolm) Other Arthritis Atrial fibrillation Heart disease Osteoporosis Skin cancer History Items: No pertinent history Paternal Family History: Family History (Last Reviewed 07/26/19 @ 10:35 by Erwin Malcolm) Other Arthritis Atrial fibrillation Heart disease Osteoporosis Skin cancer History Items: No pertinent history Review of Systems Constitutional: Denies: Chills, Fever, Weight Change HEENT: Denies: Head Aches, Sinus Congestion, Sinus Drainage Cardiovascular: Denies: Chest Pain, Palpitations Respiratory: Denies: Cough, Shortness of breath at rest, Sputum production Gastrointestinal: Denies: Abdominal Pain, Nausea, Vomiting Genitourinary: Denies: Dysuria Musculoskeletal: Denies: Joint Pain, Joint Tenderness Skin: Denies: Rash, Wounds Neurological: Denies: Numbness, Tingling, Focal weakness Psychiatric: Denies: Anxiety, Depression, Homicidal Ideations, Suicidal Ideations Hematologic/ Lymphatic: Denies: Easy Bruising, Easy Bleeding VTE Information - Inpt Only VTE Present on Admission: No - Physical Exam Vitals/I&O's: Vital Signs Temp Pulse Resp BP Pulse Ox 97.9 F 69 16 122/60 H 95 10/21/19 05:51 10/21/19 05:51 10/21/19 05:51 10/21/19 05:51 10/21/19 05:51 Oxygen Delivery Method Room Air Weight: 75.1 kg Body Mass Index (BMI) 26.7 General: Alert, Oriented x3, Cooperative HEENT: Atraumatic, PERRLA, EOMI, Normocephalic Neck: Supple, No JVD, Negative Carotid Bruits Lungs: Clear to auscultation, Normal air movement Cardiovascular: Regular rate, No murmurs Abdomen: Bowel Sounds Present, Soft, Non Tender Extremities: No edema, Capillary Refill Less than 3 Seconds Skin: No rashes, No breakdown Musculoskeletal: No Tenderness to Palpation of Joints or Extremities Neurological: Cranial nerves II-XII grossly intact Psych/Mental Status: Normal Affect, Appropriate Current Medications Cefazolin Sodium 2 gm/ Sodium (Chloride) 110 mls @ 150 mls/hr IV PREOP ONE Stop: 10/21/19 10:08 Lactated Ringer's () 1,000 mls @ 100 mls/hr IV .Q10H HAI Last Admin: 10/21/19 06:09 Dose: 100 mls/hr Documented by: Assessment/Plan All Active Problems (Last Reviewed 07/26/19 @ 10:35 by Erwin Malcolm) Diastolic dysfunction (Acute) Chest pain (Acute) Open forehead wound (Acute) 78-year-old male with high risk prostate cancer plan to continue with treatment of hormone deprivation therapy and he is also getting complete radiation therapy.
--- NOTE | 2019-10-21 07:27 | DCINST_ITS ---
Discharge Diet: Light diet - advance as tolerated Discharge Activity: Return to Normal Activity Call your doctor if your incision/area has: Sudden Increased Bleeding Allergies/Adverse Reactions: Allergies No Known Allergies Allergy (Verified 10/12/19 11:18) Medications to take at Discharge aspirin 81 mg tablet,delayed release 81 mg PO QDAY 08/27/17 multivitamin 1 tab PO QDAY 08/27/17 metoprolol tartrate 50 mg tablet 50 mg PO BID #180 tab 08/18/19 isosorbide mononitrate 60 mg tablet,extended release 24 hr 60 mg PO DAILY #90 tab 08/29/19 clopidogrel 75 mg tablet 75 mg PO QDAY #90 tab 09/26/19 tamsulosin 0.4 mg capsule 0.4 mg PO DAILY #30 cap 09/26/19 Bicalutamide 50 mg PO DAILY 10/12/19 atorvastatin 40 mg tablet 40 mg PO QDAY #90 tab 10/20/19 Primary Care Physician: Robert Hutchinson MD [Primary Care Provider] - Test Results: Test results from this visit will be discussed in further detail at your follow- up appointment, if applicable. Please Follow Up With: Som Childs MD When: Keep appt for next hormone shot.
--- NOTE | 2019-10-21 07:46 | OP.PCM_ITS ---
Report of Operation Date of Procedure: 10/21/19 Pre-Operative Diagnosis: Prostate cancer Post-Operative Diagnosis: Same Surgery/Procedure Performed:: Transrectal ultrasound-guided placement of fiducial markers. Transrectal ultrasound-guided placement of spacer organ at r isk gel matrix Description of Surgical Findings:: This is a 78-year-old male who has high risk prostate cancer PSA of 23 Grady score was intermediate high risk because of this he is undergoing radiation treatment prior to radiation treatment we are going to place gold markers within the prostate for marked the prostate for radiation treatments also organ to place a spacer gel matrix between the rectum and the prostate to separate the rectum off the prostate to help preserve rectal toxicity. Patient was taken back to the operating room after smooth induction of ane sthesia he was placed supine on the table he was placed in high lithotomy with the legs in stirrups. The penis and testicles were taped to the abdomen we then prepped the perineum with Betadine. I then placed a biplanar ultrasound probe into the rectum and performed ultrasonography of the prostate I could identify the prostate arroyo the mid apex and base of the prostate and the seminal vesicles and the bladder junction. Then via the perineum I advanced the first veneer marker into the right base and deployed the veneer marker. I then advanced a second veneer marker through the perineum into the left base and deployed the veneer marker and then finally I advanced a last veneer marker in the apex of the prostate and deployed the veneer marker once all 3 gold markers were placed and a 3 the spatial configuration for radiation therapy I then used a bevel needle down with saline to guide the needle between the prostate and the rectum once the space of the Denonvilliers' fascia was identified I was right below the non- BAs fascia injected a puff of normal saline and could see nice separation between the rectum and the prostate. The gel matrix spacer organ at gel was prepared in the back table per lace roller's instructions. I then injected the gel matrix between the rectum and the prostate over a course of 13seconds creating a very nice separation between the prostate and the rectum during the injection. After the injection was completed I pulled out the needle the patient's perineum was cleaned patient was taken out of lithotomy position anesthesia was reversed and is taken back to the PACU in good condition. Type of Anesthesia:: General - Admit VTE Documentation VTE Present on Admission: No VTE Mechan Device Prophylaxis: SCD's
[2019-10-21 07:54] VITALS: BP 108/66; BP 122/60; PULSE 68; RESP 16; TEMP 36.7; O2SAT 97
[2019-10-21 08:00] VITALS: BP 122/60; BP 123/73; PULSE 72; RESP 16; O2SAT 97
[2019-10-21 08:12] VITALS: BP 118/57; BP 122/60; PULSE 66; RESP 16; TEMP 36.3; O2SAT 95
[2019-10-21] MEDS: Acetaminophen 325 MG Tablet 650 MG PO (08:49)
[2019-10-21 09:06] VITALS: BP 122/60; BP 134/69; PULSE 73; RESP 16; TEMP 36.3; O2SAT 93
== END 2019-10-21 09:10 | disposition home or self-care (01) ==
LOC: SDC 05:16 → AC 05:17
PROVIDERS: Anesthesiology; PCP Internal Medicine; Referring Provider Urology; Visit Provider Urology
PROC: (CPT 55874; principal; 2019-10-21 07:15)
DX: C61 Malignant neoplasm of prostate (principal); N40.1 Benign prostatic hyperplasia with lower urinary tract symptoms; R35.0 Frequency of micturition; R35.1 Nocturia; R97.20 Elevated prostate specific antigen [PSA]; Z11.59 Encounter for screening for other viral diseases; I25.10 Atherosclerotic heart disease of native coronary artery without angina pectoris; I10 Essential (primary) hypertension; E78.00 Pure hypercholesterolemia, unspecified; M19.90 Unspecified osteoarthritis, unspecified site; F17.290 Nicotine dependence, other tobacco product, uncomplicated; Z79.82 Long term (current) use of aspirin; Z79.02 Long term (current) use of antithrombotics/antiplatelets; Z79.899 Other long term (current) drug therapy; Z85.820 Personal history of malignant melanoma of skin; Z98.52 Vasectomy status; Z95.5 Presence of coronary angioplasty implant and graft
CPT/HCPCS: 00902; 55874; 55876; 87635; 94799; J7120; J2405; U0003

== ENCOUNTER → 2019-11-03 10:30 | Outpatient (CLI) | payer MEDICARE, OTHER, SELFPAY ==
[2019-10-21 05:51] VITALS: BMI 26.7
[2019-11-03 11:33] LABS: Absolute Lymphocyte Count 1.22 X10^3/uL (0.83-4.51); Absolute Neutrophil Count 4.2 X10^3/uL (2.0-7.7); Basophil# 0.04 X10^3/uL; Basophil% 0.7 % (0-1); Eosinophil# 0.15 X10^3/uL; Eosinophils% 2.5 % (0-5); Hematocrit 41.2 % (40-54); Hemoglobin 12.9 g/dL (13.0-16.5); Lymphocyte # 1.22 X10^3/ul (4.0); Lymphocyte % 20.3 % (19-41); Mean Corp Hgb Conc 31.3 g/dL (32-36); Mean Corpuscular Hgb 27.5 pg (27.0-32.0); Mean Corpuscular Volume 87.8 fL (80-94); Mean Platelet Vol. 9.1 fl (6.2-12.0); Monocyte% 6.7 % (0-10); NRBC Flagged by Analyzer 0 % (0-5); Neutrophil # 4.17 X10^3/uL (2.7-7.7); Neutrophil % 69.3 % (47-70); Platelet Count 215 K/mm3 (150-450); RBC Distribution Width SD 44.8 fl (35.1-43.9); Red Blood Count 4.69 M/mm3 (4.6-6.2)
[2019-11-03 12:03] LABS: EST Glomerular Filtration Rate 87 mL/min (>60); Est Glom Filt Rate - Afr Amer 105 mL/min (>60); PSA,Total- Diagnostic 0.78 ng/mL (0.0-4.0)
== END ==
PROVIDERS: PCP Internal Medicine; Referring Provider Radiology Radiation Oncology; Visit Provider Radiology Radiation Oncology
DX: Z01.818 Encounter for other preprocedural examination (principal); C61 Malignant neoplasm of prostate
CPT/HCPCS: 36415; 82565; 84153; 85025

== ENCOUNTER → 2019-11-04 10:29 | Outpatient (CLI) | payer MEDICARE, OTHER, SELFPAY ==
[2019-07-26 10:41] VITALS: BMI 25.8
[2019-10-21 05:51] VITALS: BMI 26.7
--- NOTE | 2019-11-04 10:33 | CT_ITS ---
STUDY: CT PELVIS WITH CONTRAST REASON FOR EXAM: Male, 78 years old. Radiation treatment planning for prostate cancer. Hx melanoma. RADIATION DOSAGE (If Supplied By Facility): CTDIvol = ( 24.57 ) mGy, DLP = ( 799.39 ) mGycm TECHNIQUE: Transaxial imaging of the pelvis was performed with oral contrast. Oral and amp; IV READII-CAT and amp; 100ML ISOVUE 300 was administered intravenously. Individualized dose optimization techniques were used for this CT. COMPARISON: Comparison is made with prior examination dated 09/16/2019. FINDINGS: Normal urinary bladder. Metallic radiation seeds are seen within the prostate. Small amount of free fluid in the pelvis. The prostate measures 3.9 cm x 3.9 cm. Normal visualized small intestine. There are multiple colonic diverticula of the sigmoid colon consistent with chronic diverticulosis. There is no pelvic fluid. There is no pelvic lymphadenopathy or mass lesion. There is diffuse atherosclerotic calcification of the pelvic arteries. 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 The intimal calcification is displaced indicating focal dissection. This is unchanged. Normal abdominal wall. There are diffuse degenerative changes of the visualized lumbar spine. CT/CT Pelvis W/CONT Therapy IMPRESSION: Metallic radiation seeds are seen within the prostate. Small amount of fluid is seen in the pelvis. Stable appearance of the aneurysmal dilatation of the distal aorta. Electronically Signed: Daniel Vasquez, at 13:01 EDT , Service support ,
== END ==
PROVIDERS: PCP Internal Medicine; Referring Provider Radiology Radiation Oncology; Visit Provider Radiology Radiation Oncology
DX: C61 Malignant neoplasm of prostate (principal); Z85.820 Personal history of malignant melanoma of skin
CPT/HCPCS: 51600; 72193; Q9965; Q9967

== ENCOUNTER → 2019-11-29 10:46 | Outpatient (CLI) | payer MEDICARE, OTHER, SELFPAY ==
[2019-11-29 12:22] LABS: Absolute Lymphocyte Count 0.71 X10^3/uL (0.83-4.51); Absolute Neutrophil Count 2.6 X10^3/uL (2.0-7.7); Basophil# 0.02 X10^3/uL; Basophil% 0.5 % (0-1); Eosinophil# 0.29 X10^3/uL; Eosinophils% 7.1 % (0-5); Hemoglobin 11.9 g/dL (13.0-16.5); Lymphocyte # 0.71 X10^3/ul (4.0); Lymphocyte % 17.4 % (19-41); Mean Corp Hgb Conc 32.2 g/dL (32-36); Mean Corpuscular Hgb 28.7 pg (27.0-32.0); Mean Corpuscular Volume 89.2 fL (80-94); Mean Platelet Vol. 9.3 fl (6.2-12.0); Monocyte# 0.43 X10^3/uL; Monocyte% 10.5 % (0-10); NRBC Flagged by Analyzer 0 % (0-5); Neutrophil # 2.63 X10^3/uL (2.7-7.7); Neutrophil % 64.3 % (47-70); Platelet Count 145 K/mm3 (150-450); RBC Distribution Width CV 14.2 % (11.6-14.6); Red Blood Count 4.15 M/mm3 (4.6-6.2); White Blood Count 4.1 K/mm3 (4.4-11.0)
== END ==
PROVIDERS: PCP Internal Medicine; Referring Provider Radiology Radiation Oncology; Visit Provider Radiology Radiation Oncology
DX: C61 Malignant neoplasm of prostate (principal)
CPT/HCPCS: 36415; 85025

== ENCOUNTER → 2019-12-20 10:43 | Outpatient (CLI) | payer MEDICARE, OTHER, SELFPAY ==
[2019-12-20 12:33] LABS: Absolute Lymphocyte Count 0.47 X10^3/uL (0.83-4.51); Absolute Neutrophil Count 2.9 X10^3/uL (2.0-7.7); Basophil# 0.02 X10^3/uL; Basophil% 0.5 % (0-1); Eosinophil# 0.29 X10^3/uL; Eosinophils% 7.1 % (0-5); Hematocrit 38.8 % (40-54); Hemoglobin 12.4 g/dL (13.0-16.5); Lymphocyte # 0.47 X10^3/ul (4.0); Lymphocyte % 11.5 % (19-41); Mean Corpuscular Hgb 28.5 pg (27.0-32.0); Mean Corpuscular Volume 89.2 fL (80-94); Mean Platelet Vol. 9.3 fl (6.2-12.0); Monocyte# 0.43 X10^3/uL; Monocyte% 10.5 % (0-10); NRBC Flagged by Analyzer 0 % (0-5); Neutrophil # 2.86 X10^3/uL (2.7-7.7); Neutrophil % 69.7 % (47-70); POSITIVE DIFFERENTIAL YES; Platelet Count 191 K/mm3 (150-450); RBC Distribution Width SD 48.7 fl (35.1-43.9); Red Blood Count 4.35 M/mm3 (4.6-6.2); White Blood Count 4.1 K/mm3 (4.4-11.0)
[2019-12-20 12:39] LABS: Differential Indicated SCAN CRITERIA MET
[2019-12-20 13:23] LABS: Platelet Estimate ADEQUATE (ADEQ); Red Cell Morphology NORM C+C NORMAL (NORM C&C)
[2019-12-21 13:34] LABS: Pathologist Review Reviewed
== END ==
PROVIDERS: PCP Internal Medicine; Visit Provider Radiology Radiation Oncology
DX: C61 Malignant neoplasm of prostate (principal)
CPT/HCPCS: 36415; 85025

== ENCOUNTER → 2020-03-21 12:45 | Outpatient (CLI) | payer MEDICARE, OTHER, SELFPAY ==
[2020-03-05 10:03] VITALS: BMI 27.4
--- NOTE | 2020-03-21 13:36 | CT_ITS ---
STUDY: CT CHEST WITHOUT CONTRAST REASON FOR EXAM: Male, 79 years old. EMPHYSEMA, DYSPNEA ON EXERTION. RADIATION DOSAGE (If Supplied By Facility): CTDIvol = ( 11.86 ) mGy, DLP = ( 459.57 ) mGycm TECHNIQUE: Transaxial imaging was performed without the administration of intravenous contrast material. Multiplanar coronal and sagittal images were reformatted. Individualized dose optimization techniques were used for this CT. COMPARISON: None. FINDINGS: Calcified plaques at the bifurcation of the carotid arteries bilaterally. Calcified granuloma in the posterior medial segment of the right lower lobe. Mild increased markings in the posterior medial segments of both lower lobes slightly more prominent on the right side suggestive of linear scarring. There is no demonstrated pleural abnormality. There are calcifications of the coronary arteries. There are multiple small lymph nodes within the mediastinum, which are normal in size and morphology most compatible with reactive lymph hyperplasia. Calcified right subcarinal lymph nodes. Normal hilar regions. Normal unenhanced pulmonary arteries. There is atherosclerotic calcification of the aortic arch with tortuosity and elongation of the aortic arch and descending thoracic aorta. There are multi-level degenerative changes of the thoracic spine. There is no demonstrated abnormality of the visualized upper abdomen. CT/Chest without Contrast IMPRESSION: Mild linear scarring at the lung bases. Atherosclerotic calcific plaques of the aorta as well as the origins of the right and left internal carotid arteries. Electronically Signed: Daniel Vasquez MD at 14:15 EST , Service support ,
--- NOTE | 2020-03-22 09:07 | PFT ---
INTRODUCTION: The patient is an 79-year-old male that presents for pulmonary function studies secondary to a diagnosis of emphysema. Respiratory therapy reports good patient effort. Bronchodilators were used during testing. INTERPRETATION: Forced expiration spirometry demonstrates the presence of a severe large airways obstructive ventilatory defect. There was a significant response to aerosolized bronchodilators. Spirograms are of good quality and do not plateau indicating slow emptying of the lungs. Body plethysmography was performed and revealed an elevated TLC and RV, indicative of underlying hyperinflation and air trapping. Diffusing capacity by single breath CO is reduced at 54% of predicted. IMPRESSION: Partially reversible severe large airways obstructive ventilatory defect with associated hyperinflation, air trapping and symmetric reduction in diffusing capacity.
== END ==
PROVIDERS: PCP Internal Medicine; Referring Provider Internal Medicine; Visit Provider Internal Medicine
DX: J43.9 Emphysema, unspecified (principal); R06.00 Dyspnea, unspecified; F17.200 Nicotine dependence, unspecified, uncomplicated
CPT/HCPCS: 71250; 94060; 94726; 94729

== ENCOUNTER → 2020-04-20 11:24 | Outpatient (CLI) | payer MEDICARE, OTHER, SELFPAY ==
[2020-03-05 10:03] VITALS: BMI 27.4
[2020-04-20 10:48] VITALS: BMI 28.8
[2020-04-20 12:54] LABS: Absolute Lymphocyte Count 0.62 X10^3/uL (0.83-4.51); Basophil# 0.02 X10^3/uL; Basophil% 0.4 % (0-1); Eosinophil# 0.16 X10^3/uL; Eosinophils% 3.1 % (0-5); Hematocrit 40.7 % (40-54); Hemoglobin 12.9 g/dL (13.0-16.5); Lymphocyte # 0.62 X10^3/ul (4.0); Lymphocyte % 11.9 % (19-41); Mean Corp Hgb Conc 31.7 g/dL (32-36); Mean Corpuscular Hgb 29.5 pg (27.0-32.0); Mean Corpuscular Volume 93.1 fL (80-94); Mean Platelet Vol. 9.5 fl (6.2-12.0); Monocyte% 7.7 % (0-10); NRBC Flagged by Analyzer 0 % (0-5); Neutrophil # 3.97 X10^3/uL (2.7-7.7); Neutrophil % 76.5 % (47-70); Platelet Count 190 K/mm3 (150-450); RBC Distribution Width CV 13.2 % (11.6-14.6); RBC Distribution Width SD 45.1 fl (35.1-43.9); Red Blood Count 4.37 M/mm3 (4.6-6.2); White Blood Count 5.2 K/mm3 (4.4-11.0)
[2020-04-20 13:20] LABS: AST(SGOT) 18 U/L (15-37); Alanine Aminotransfer ALT/SGPT 26 U/L (16-61); Albumin, Serum 3.4 g/dL (3.2-5.0); Alkaline Phosphatase 80 U/L (45-117); Anion Gap 4 (5-15); BUN 16 mg/dL (7-18); BUN/Creat Ratio 17.1 RATIO (10-20); Calcium,Total 9.2 mg/dL (8.5-10.1); Chloride 106 mmol/L (98-107); Cholesterol 123 mg/dL (200); Creatinine, Serum 0.93 mg/dL (0.70-1.30); EST Glomerular Filtration Rate 83 mL/min (>60); Est Glom Filt Rate - Afr Amer 100 mL/min (>60); Globulin 3.3 g/dL (2.2-4.2); Glucose 91 mg/dL (74-106); High Density Lipoprotein 62 mg/dL; Potassium 4.4 mmol/L (3.5-5.1); Protein, Total 6.7 g/dL (6.4-8.2); Sodium Level 141 mmol/L (136-145); Triglycerides 88 mg/dL; Very Low Density Lipoprotein 18 mg/dL (5-40)
[2020-04-20 13:51] LABS: PSA,Total- Diagnostic 0.03 ng/mL (0.0-4.0)
== END ==
PROVIDERS: PCP Internal Medicine; Referring Provider Urology; Visit Provider Urology
DX: C61 Malignant neoplasm of prostate (principal); I71.00 Dissection of unspecified site of aorta; I71.9 Aortic aneurysm of unspecified site, without rupture; I10 Essential (primary) hypertension
CPT/HCPCS: 36415; 80053; 80061; 84153; 85025

== ENCOUNTER → 2020-07-17 11:03 | Outpatient (CLI) | payer MEDICARE, OTHER, SELFPAY ==
[2020-04-20 10:48] VITALS: BMI 28.8
[2020-07-17 11:56] LABS: PSA,Total- Diagnostic 0.02 ng/mL (0.0-4.0)
== END ==
PROVIDERS: PCP Internal Medicine; Referring Provider Urology; Visit Provider Urology
DX: C61 Malignant neoplasm of prostate (principal)
CPT/HCPCS: 36415; 84153

== ENCOUNTER → 2020-07-20 11:18 | Outpatient (CLI) | payer MEDICARE, OTHER, SELFPAY ==
[2020-07-20 10:55] VITALS: BMI 28.8
--- NOTE | 2020-07-20 12:05 | RAD_ITS ---
STUDY: X-RAY - RIGHT KNEE REASON FOR EXAM: Male, 79 years old. Bilateral Knee Pain TECHNIQUE: 4 view(s) of the knee. COMPARISON: None. FINDINGS: Normal visualized distal femur. Normal visualized proximal tibia and fibula. Normal proximal tibiofibular articulation. There is moderate degenerative arthrosis of the medial femorotibial compartment with moderate joint space narrowing. There is moderate degenerative arthrosis of the lateral femorotibial compartment with moderate joint space narrowing. There is severe degenerative arthrosis of the patellofemoral articulation. There is no demonstrated joint effusion. Chondrocalcinosis The soft tissue structures are unremarkable. RAD/Knee 4 or More Views IMPRESSION: Degenerative arthrosis. Electronically Signed: Jones Melissa DO at 2:04 EDT Tel , Service support ,
--- NOTE | 2020-07-20 12:05 | RAD_ITS ---
STUDY: X-RAY - LEFT KNEE REASON FOR EXAM: Male, 79 years old. PAIN TECHNIQUE: 4 view(s) of the knee. COMPARISON: None. FINDINGS: Severe degenerative change of the patellofemoral joint. Moderate medial and lateral compartment osteophytosis. Chondrocalcinosis. No acute fracture or dislocation. Lateral patellar tilt. No joint effusion RAD/Knee 4 or More Views IMPRESSION: Degenerative changes of the patellofemoral joint with chondrocalcinosis. No acute fracture or dislocation. Electronically Signed: Jones Melissa DO at 2:03 EDT Tel , Service support ,
[2020-07-20 13:09] LABS: Absolute Lymphocyte Count 0.63 X10^3/uL (0.83-4.51); Absolute Neutrophil Count 3.6 X10^3/uL (2.0-7.7); Basophil# 0.03 X10^3/uL; Basophil% 0.6 % (0-1); Eosinophil# 0.13 X10^3/uL; Eosinophils% 2.7 % (0-5); Hematocrit 38.7 % (40-54); Hemoglobin 12.1 g/dL (13.0-16.5); Lymphocyte # 0.63 X10^3/ul (0.83-4.51); Lymphocyte % 13.1 % (19-41); Mean Corp Hgb Conc 31.3 g/dL (32-36); Mean Corpuscular Hgb 28.5 pg (27.0-32.0); Mean Corpuscular Volume 91.3 fL (80-94); Mean Platelet Vol. 9.2 fl (6.2-12.0); Monocyte% 8.3 % (0-10); NRBC Flagged by Analyzer 0 % (0-5); Neutrophil # 3.59 X10^3/uL (2.7-7.7); Neutrophil % 74.7 % (47-70); Platelet Count 193 K/mm3 (150-450); RBC Distribution Width CV 15.4 % (11.6-14.6); RBC Distribution Width SD 51.5 fl (35.1-43.9); Red Blood Count 4.24 M/mm3 (4.6-6.2); White Blood Count 4.8 K/mm3 (4.4-11.0)
[2020-07-20 13:21] LABS: Anion Gap 1 (5-15); BUN 11 mg/dL (7-18); BUN/Creat Ratio 13.1 RATIO (10-20); Calcium,Total 9.2 mg/dL (8.5-10.1); Chloride 108 mmol/L (98-107); Creatinine, Serum 0.84 mg/dL (0.70-1.30); EST Glomerular Filtration Rate 93 mL/min (>60); Est Glom Filt Rate - Afr Amer 113 mL/min (>60); Glucose 101 mg/dL (74-106); Potassium 4.5 mmol/L (3.5-5.1); Sodium Level 142 mmol/L (136-145)
== END ==
PROVIDERS: PCP Internal Medicine; Referring Provider Internal Medicine; Visit Provider Internal Medicine
DX: I10 Essential (primary) hypertension (principal); R53.81 Other malaise; M25.561 Pain in right knee; M25.562 Pain in left knee
CPT/HCPCS: 36415; 73564; 80048; 85025

== ENCOUNTER → 2020-09-28 09:56 | Outpatient (CLI) | payer MEDICARE, OTHER, SELFPAY ==
[2020-09-27 15:39] VITALS: BMI 28.8
--- NOTE | 2020-09-28 10:03 | RAD_ITS ---
STUDY: X-RAY LEFT FOOT, FIRST TOE REASON FOR EXAM: Male, 79 years old. Pain and swelling. TECHNIQUE: 3 view(s) of the toe were obtained. COMPARISON: None. FINDINGS: Normal visualized metatarsus. There is arthrosis of the metatarsophalangeal (M.T.P.) joint with minimal hallux valgus deformity. Hemarthrosis on interphalangeal joint. Normal phalanges. No visualized fracture. The soft tissue structures are unremarkable. RAD/Toe(s) Min 2 Views IMPRESSION: Degenerative changes of the great toe without acute fracture or dislocation. Electronically Signed: Dawson Young DO at 16:58 EDT Tel [phone], Service support ,
== END ==
PROVIDERS: PCP Internal Medicine; Referring Provider Internal Medicine; Visit Provider Internal Medicine
DX: L08.9 Local infection of the skin and subcutaneous tissue, unspecified (principal); M79.676 Pain in unspecified toe(s)
CPT/HCPCS: 73660

== ENCOUNTER 2020-10-07 03:15 | Observation (INO) | payer MEDICARE, OTHER, SELFPAY ==
[2020-09-27 15:39] VITALS: BMI 28.8
[2020-10-07] VITALS (17 sets, daily range): BP systolic 110–156; BP diastolic 56–81; PULSE 77–118; RESP 16–21; TEMP 35.8–36.9; O2SAT 91–95; BMI 28.6; BMI 27.8
--- NOTE | 2020-10-07 03:29 | RAD_ITS ---
STUDY: X-RAY CHEST REASON FOR EXAM: Male, 79 years old. Shortness of breath TECHNIQUE: Single AP portable view of the chest. COMPARISON: 07/11/2019 FINDINGS: Mild prominence of interstitial markings at the lung bases, unchanged. No new confluent airspace opacity. There is no demonstrated pleural abnormality. Normal size heart. Normal mediastinum and christianne. Normal visualized pulmonary arteries. There is atherosclerotic calcification of the aortic arch . There are diffuse degenerative changes of the visualized thoracic spine. Normal visualized ribs, clavicles, and shoulders. There is no demonstrated abnormality of the visualized soft tissue structures of the upper abdomen. RAD/Chest 1 View (Portable) IMPRESSION: Chronic bibasilar interstitial change with no acute cardiopulmonary disease Electronically Signed: Marty Ribeiro MD at 4:27 EDT Tel , Service support ,
--- NOTE | 2020-10-07 03:29 | EKG12_ITS ---
Test Reason : SOB Blood Pressure : / mmHG Vent. Rate : 074 BPM Atrial Rate : 074 BPM P-R Int : 194 ms QRS Dur : 106 ms QT Int : 388 ms P-R-T Axes : 075 058 057 degrees QTc Int : 430 ms Normal sinus rhythm Normal ECG Confirmed by MARY CAMACHO MD ([id number]), material expeditor JOSE VICENTE ([id number]) on 10/09/2020 9:31:46 AM Referred By: RICK Confirmed By:MARY CAMACHO MD
--- NOTE | 2020-10-07 03:31 | EDS_ITS ---
HPI History of Present Illness Chief Complaint: Shortness of Breath Informant: patient Onset/Context/Timing Onset: Days (3 days) Context: Gradual Onset Timing: Intermittent Current Severity: Mild Maximum Severity: Moderate Narrative Narrative: Patient presents with shortness of breath worse with exertion. He does have a history of COPD. He states such as sitting at rest right now does not feel too short of breath with any exertion he becomes quite dyspneic. Tonight he woke from sleep feeling very short of breath. He had very minimal cough. No fever or chills. He does report increased wheezing and has been using his inhaler more than normal. 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 melanoma of face Nicotine abuse Open forehead wound Personal history of malignant melanoma Pure hypercholesterolemia Smoker Tobacco abuse Toe infection Home Medications aspirin 81 mg tablet,delayed release 81 mg PO QDAY 08/27/17 [History Last Taken Unknown] multivitamin 1 tab PO QDAY 08/27/17 [History Last Taken Unknown] calcium carbonate 430 mg calcium (1,000 mg) chewable tablet 430 mg PO DAILY 01/09/20 [History Last Taken Unknown] albuterol sulfate 90 mcg/actuation aerosol inhaler 2 puff INHALATION Q6H PRN #18 g 04/19/20 [Rx Last Taken Unknown] polyethylene glycol 3350 17 gram/dose oral powder 17 g PO DAILY 04/20/20 [History Last Taken Unknown] metoprolol tartrate 50 mg tablet 50 mg PO BID #180 tab 07/16/20 [Rx Last Taken Unknown] cholecalciferol (vitamin D3) 25 mcg (1,000 unit) capsule 25 mcg PO DAILY 07/20/20 [History Last Taken Unknown] mecobalamin (vitamin B12) 5,000 mcg lozenge 5,000 mcg PO DAILY 07/20/20 [History Last Taken Unknown] isosorbide mononitrate 60 mg tablet,extended release 24 hr 60 mg PO DAILY #90 tab 08/16/20 [Rx Last Taken Unknown] atorvastatin 40 mg tablet 40 mg PO QDAY #90 tab 09/14/20 [Rx Last Taken Unknown] tamsulosin 0.4 mg capsule 0.4 mg PO DAILY #90 cap 09/14/20 [Rx Last Taken Unknown] acetaminophen 325 mg tablet 650 mg PO Q6H PRN tab 09/27/20 [History Last Taken Unknown] doxazosin 2 mg tablet 2 mg PO QHS tab 09/27/20 [History Last Taken Unknown] fluticasone fur. 100 mcg-umeclid 62.5 mcg-vilant 25 mcg inhalat.powder 1 inh INHALATION DAILY #28 ea 09/27/20 [Rx Last Taken Unknown] Allergy/AdvReac Type Severity Reaction Status Date / Time No Known Allergies Allergy Verified 10/07/20 03:23 Family History Other Arthritis Atrial fibrillation Heart disease Osteoporosis Skin cancer Surgical History History of bilateral cataract extraction History of fracture of finger History of local excision of skin lesion History of tonsillectomy Hx of vasectomy Postsurgical percutaneous transluminal coronary angioplasty (PTCA) status (~07/28/17) Presence of stent in coronary artery (~07/28/17) Social History Smoking Status: Current every day smoker tobacco type: cigarettes Tobacco: How many years used: 65 Electronic Cigarette Use: not used second hand exposure: Yes alcohol intake: current alcohol intake frequency: 0-2 drinks per day Alcohol type: beer substance use type: does not use what type of physical activity do you participate in: walking ROS ROS ED Constitutional Constitutional ED: Denies chills or fever(s) Eyes Eyes: Denies change in vision ENT ENT ED: Denies sore throat Cardiovascular Cardiovascular: Denies chest pain Respiratory/Chest Respiratory/Chest: Reports cough and dyspnea Gastrointestinal Gastrointestinal: Denies abdominal pain, diarrhea, nausea or vomiting Genitourinary Genitourinary ED: Denies dysuria Musculoskeletal Musculoskeletal: Denies back pain Integumentary Denies rash Neurologic Neurologic: Denies headache(s) or weakness Allergic/Immunologic Allergic/Immunologic ED: Denies urticaria EXAM Physical Exam Const Vital Signs: 10/07/20 03:16 10/07/20 03:17 10/07/20 03:18 Temperature 96.5 F L 96.5 F L Temperature Source Temporal Temporal Pulse Rate 77 77 Respiratory Rate 20 H 20 H Respiratory Effort Short of Breath Respiratory Depth Normal Respiratory Pattern Normal Blood Pressure 156/81 H 156/81 H Blood Pressure Mean 106 106 Pulse Ox 91 91 Oxygen Delivery Method Room Air Room Air Room Air 10/07/20 03:52 Temperature Temperature Source Pulse Rate 79 Respiratory Rate 21 H Respiratory Effort Respiratory Depth Respiratory Pattern Tachypnea Blood Pressure Blood Pressure Mean Pulse Ox Oxygen Delivery Method Positive well nourished and well developed General Appearance ED: well developed HEENT Reports normocephalic and head/scalp atraumatic Eyes PERRL and EOMs intact bilaterally Neck supple Chest Wall inspection of chest normal and palpation of chest normal Resp normal respiratory effort Resp Narrative: End expiratory wheezes bilaterally Cardio regular rate and regular rhythm GI normal to inspection, nondistended, normoactive bowel sounds Palpation: soft Extremity normal to inspection Neuro oriented x3 and no sensory deficits noted Sensorium / Orientation: alert Motor Exam: strength 5/5 throughout Psych mental status grossly normal Skin no rashes or lesions noted MDM MDM MDM Narrative Medical decision making narrative: Lab work, EKG, Covid swab obtained. Portable chest x-ray ordered. Patient given aerosols and IV Solu-Medrol. Lab Data Attestation: I reviewed the patient's lab results. Labs: Laboratory Results - last 24 hr 10/07/20 10/07/20 03:20 03:20 WBC 6.2 RBC 4.14 L Hgb 12.1 L Hct 37.3 L MCV 90.1 MCH 29.2 MCHC 32.4 RDW Std Deviation 46.5 H RDW Coeff of Maurilio 14.1 Plt Count 167 MPV 8.8 Immature Gran % (Auto) 0.300 Neut % (Auto) 68.4 Lymph % (Auto) 15.4 L [place] % (Auto) 8.0 Eos % (Auto) 7.1 H Baso % (Auto) 0.8 Absolute Neuts (auto) 4.2 Absolute Lymphs (auto) 0.95 Nucleated RBC % 0 Sodium 143 Potassium 4.1 Chloride 109 H Carbon Dioxide 28.0 Anion Gap 6 BUN 20 H Creatinine 0.75 Estim Creat Clear Calc 53.17 Est GFR (MDRD) Af Amer 128 Est GFR (MDRD) Non-Af 106 BUN/Creatinine Ratio 26.6 H Glucose 112 H Calcium 8.6 Radiography Chest X-Ray - ED: 1 View, Read by ED Physician and Chronic Changes Diagnostic Testing: Radiology Impression Chest X-Ray 10/07/20 03:29 IMPRESSION: Chronic bibasilar interstitial change with no acute cardiopulmonary disease Electronically Signed: Marty Ribeiro MD at 4:27 EDT Tel , Service support , EKG Initial EKG: Attestation: I personally reviewed and interpreted this EKG as follows: Interpretation: Sinus Rhythm (Sinus at 74 with no acute ischemia.) Treatment and Re-Evaluation Comments:: Following the first 2 breathing treatments auscultation of the lungs revealed increased wheezing throughout. After the final breathing treatment lung sounds are improved with improved air movement and minimal to no wheezing. Lab work is unremarkable. Chest x-ray per my interpretation shows no focal infiltrate. Radiology interpretation reviewed. Patient did ambulate to the restroom and back. Upon returning to his room O2 sat is 86%. He does slowly recover. In light of his hypoxia with exertion I do feel he should be observed today in the hospital for treatment. I will speak with the hospitalist. Discharge Plan Triage Chief Complaint: Shortness of Breath ED Provider: Kitty Tolbert Dx/Rx/DC Orders Clinical Impression: COPD exacerbation Prescriptions: No Action aspirin 81 mg tablet,delayed release (DR/EC) 81 mg PO QDAY RF: 0 multivitamin tablet 1 tab PO QDAY RF: 0 Antacid Ultra Strength 430 mg calcium (1,000 mg) tablet,chewable 430 mg PO DAILY RF: 0 doxazosin 2 mg tablet 2 mg PO QHS RF: 0 acetaminophen 325 mg tablet 650 mg PO Q6H PRN (Reason: PAIN/FEVER) RF: 0 polyethylene glycol 3350 [Miralax] 17 gram/dose powder 17 g PO DAILY RF: 0 cholecalciferol (vitamin D3) 25 mcg (1,000 unit) capsule 25 mcg PO DAILY RF: 0 mecobalamin (vitamin B12) 5,000 mcg lozenge 5,000 mcg PO DAILY RF: 0 Trelegy Ellipta 100-62.5-25 mcg blister with device 1 inh INHALATION DAILY Qty: 28 RF: 5 albuterol sulfate 90 mcg/actuation HFA aerosol inhaler 2 puff INHALATION Q6H PRN (Reason: shortness of breath or wheezing) Qty: 18 RF: 1 metoprolol tartrate 50 mg tablet 50 mg PO BID Qty: 180 RF: 3 isosorbide mononitrate 60 mg tablet extended release 24 hr 60 mg PO DAILY Qty: 90 RF: 3 atorvastatin 40 mg tablet 40 mg PO QDAY Qty: 90 RF: 3 tamsulosin [Flomax] 0.4 mg capsule 0.4 mg PO DAILY Qty: 90 RF: 2 Primary Care Provider: Robert Hutchinson Referrals: Robert Hutchinson MD [Primary Care Provider] - Disposition Disposition: Acute Care Hospital [facility]
[2020-10-07 03:36] LABS: Absolute Lymphocyte Count 0.95 X10^3/uL (0.83-4.51); Absolute Neutrophil Count 4.2 X10^3/uL (2.0-7.7); Basophil# 0.05 X10^3/uL; Basophil% 0.8 % (0-1); Eosinophil# 0.44 X10^3/uL; Eosinophils% 7.1 % (0-5); Hematocrit 37.3 % (40-54); Hemoglobin 12.1 g/dL (13.0-16.5); Lymphocyte # 0.95 X10^3/ul (0.83-4.51); Lymphocyte % 15.4 % (19-41); Mean Corp Hgb Conc 32.4 g/dL (32-36); Mean Corpuscular Hgb 29.2 pg (27.0-32.0); Mean Corpuscular Volume 90.1 fL (80-94); Mean Platelet Vol. 8.8 fl (6.2-12.0); Monocyte# 0.49 X10^3/uL; NRBC Flagged by Analyzer 0 % (0-5); Neutrophil # 4.21 X10^3/uL (2.7-7.7); Neutrophil % 68.4 % (47-70); Platelet Count 167 K/mm3 (150-450); RBC Distribution Width CV 14.1 % (11.6-14.6); RBC Distribution Width SD 46.5 fl (35.1-43.9); Red Blood Count 4.14 M/mm3 (4.6-6.2); White Blood Count 6.2 K/mm3 (4.4-11.0)
[2020-10-07] MEDS: Albuterol 2.5 MG/3 ML VIAL.NEB. INHALATION ×3 (03:44→04:07)
[2020-10-07] MEDS: MethylPREDNISolone 125 MG/2 ML Vial 80 MG IV (03:45)
[2020-10-07] MEDS: Ipratropium/Albuterol Sulfate 3 ML AMPUL.NEB INHALATION ×6 (04:07→22:43)
[2020-10-07 04:15] LABS: Anion Gap 6 (5-15); BUN 20 mg/dL (7-18); BUN/Creat Ratio 26.6 RATIO (10-20); Calcium,Total 8.6 mg/dL (8.5-10.1); Chloride 109 mmol/L (98-107); Creatinine, Serum 0.75 mg/dL (0.70-1.30); EST Glomerular Filtration Rate 106 mL/min (>60); Est Glom Filt Rate - Afr Amer 128 mL/min (>60); Estimated Creatinine Clearance 53.17 ml/min; Glucose 112 mg/dL (74-106); Potassium 4.1 mmol/L (3.5-5.1); Sodium Level 143 mmol/L (136-145)
[2020-10-07] MEDS: Azithromycin 250 MG Tablet 500 MG PO (05:32)
--- NOTE | 2020-10-07 05:33 | PCM.HP.STD ---
HPI - General General Date of Admission: 10/07/20 Date of Service: 10/07/20 Chief Complaint: Shortness of breath for 2 days HPI Narrative JAGDEEP WALTERS, is a 79 M with history of COPD came to ER for acute worsening of shortness of breath for last 2 days along with dry cough. Patient denies fever, chills, chest pain, tightness or pressure. He predominantly has dyspnea on minimal exertion with wheezing. He has been using more inhaler for last 2 days. In ED, patient respiratory rate 2021, gets hypoxic on exertion, 86% on room air with slow recovery. Basic lab test done in the ER unremarkable. Chest x-ray did not show acute change but chronic bibasilar interstitial changes. Twelve-lead EKG shows normal sinus rhythm Patient has history of coronary artery disease status post stents and follows Dr. Matta. He also has history of AAA and was referred to Dr. Johnson for follow-up as an outpatient. REPLACED BY [facility] Medical History Acquired blepharoptosis of left eyelid Actinic keratosis Atherosclerotic heart disease of [place] coronary artery without angina pectoris Bilateral knee pain Bilateral lower extremity edema Bilateral primary osteoarthritis of knee Chest pain COPD (chronic obstructive pulmonary disease) Debility Diastolic dysfunction Essential hypertension Family history of skin cancer GERD (gastroesophageal reflux disease) Great toe pain Hearing loss HTN (hypertension) Late effect of cranial nerve injury Malignant melanoma of face Nicotine abuse Open forehead wound Personal history of malignant melanoma Pure hypercholesterolemia Smoker Tobacco abuse Toe infection Home Medications aspirin 81 mg tablet,delayed release 81 mg PO QDAY 08/27/17 [History Last Taken Unknown] multivitamin 1 tab PO QDAY 08/27/17 [History Last Taken Unknown] calcium carbonate 430 mg calcium (1,000 mg) chewable tablet 430 mg PO DAILY 01/09/20 [History Last Taken Unknown] albuterol sulfate 90 mcg/actuation aerosol inhaler 2 puff INHALATION Q6H PRN #18 g 04/19/20 [Rx Last Taken Unknown] polyethylene glycol 3350 17 gram/dose oral powder 17 g PO DAILY 04/20/20 [History Last Taken Unknown] metoprolol tartrate 50 mg tablet 50 mg PO BID #180 tab 07/16/20 [Rx Last Taken Unknown] cholecalciferol (vitamin D3) 25 mcg (1,000 unit) capsule 25 mcg PO DAILY 07/20/20 [History Last Taken Unknown] mecobalamin (vitamin B12) 5,000 mcg lozenge 5,000 mcg PO DAILY 07/20/20 [History Last Taken Unknown] isosorbide mononitrate 60 mg tablet,extended release 24 hr 60 mg PO DAILY #90 tab 08/16/20 [Rx Last Taken Unknown] atorvastatin 40 mg tablet 40 mg PO QDAY #90 tab 09/14/20 [Rx Last Taken Unknown] tamsulosin 0.4 mg capsule 0.4 mg PO DAILY #90 cap 09/14/20 [Rx Last Taken Unknown] acetaminophen 325 mg tablet 650 mg PO Q6H PRN tab 09/27/20 [History Last Taken Unknown] doxazosin 2 mg tablet 2 mg PO QHS tab 09/27/20 [History Last Taken Unknown] fluticasone fur. 100 mcg-umeclid 62.5 mcg-vilant 25 mcg inhalat.powder 1 inh INHALATION DAILY #28 ea 09/27/20 [Rx Last Taken Unknown] Allergy/AdvReac Type Severity Reaction Status Date / Time No Known Allergies Allergy Verified 10/07/20 03:23 Family History Other Arthritis Atrial fibrillation Heart disease Osteoporosis Skin cancer Surgical History History of bilateral cataract extraction History of fracture of finger History of local excision of skin lesion History of tonsillectomy Hx of vasectomy Postsurgical percutaneous transluminal coronary angioplasty (PTCA) status (~07/28/17) Presence of stent in coronary artery (~07/28/17) Social History Smoking Status: Current every day smoker tobacco type: cigarettes Tobacco: How many years used: 65 Electronic Cigarette Use: not used second hand exposure: Yes alcohol intake: current alcohol intake frequency: 0-2 drinks per day Alcohol type: beer substance use type: does not use what type of physical activity do you participate in: walking ROS ROS Narrative Constitutional: Reports fatigue and weakness with exertion HEENT: Reports systems reviewed and no addt'l complaints, except as documented Respiratory/Chest: As mentioned in HPI Gastrointestinal: Denies coffee ground emesis, hematemesis or vomiting Genitourinary: Denies burning urination or new urinary tract symptoms Musculoskeletal: Denies joint pain and limited range of motion Neurologic: Denies seizure-like activity skin: Maceration of left great toe. Small superficial ulcer. Endocrinology: Reports systems reviewed and no addt'l complaints, except as documented Hematologic/Lymphatic: Reports systems reviewed and no addt'l complaints, except as documented Rest 12 ROS are negative except as mentioned in HPI Vital Signs Vital Signs Vital Signs: 10/07/20 03:16 10/07/20 03:17 10/07/20 03:18 Temperature 96.5 F L 96.5 F L Temperature Source Temporal Temporal Pulse Rate 77 77 Respiratory Rate 20 H 20 H Respiratory Effort Short of Breath Respiratory Depth Normal Respiratory Pattern Normal Blood Pressure 156/81 H 156/81 H Blood Pressure Mean 106 106 Pulse Ox 91 91 Oxygen Delivery Method Room Air Room Air Room Air 10/07/20 03:52 Temperature Temperature Source Pulse Rate 79 Respiratory Rate 21 H Respiratory Effort Respiratory Depth Respiratory Pattern Tachypnea Blood Pressure Blood Pressure Mean Pulse Ox Oxygen Delivery Method Weight Weight: 177 lb 11.081 oz Body Mass Index (BMI) 28.6 Physical Exam Narrative General: Alert, Oriented x3, Cooperative HEENT: Atraumatic, PERRLA, EOMI, Normocephalic. Scar jamal over left baptist of excision of melanoma Oral: No Gingival or Mucosal Lesions/ Ulcerations Neck: Supple, No JVD, Negative Carotid Bruits Lungs: Air entry diminished in bilateral lung bases. Bilateral expiratory rhonchi and fine wheezing present Cardiovascular: Regular rate, Regular Rhythm, Normal S1, Normal S2, No murmurs Abdomen: Bowel Sounds Present, Soft, Non Tender, Non-Distended : No renal angle tenderness. No suprapubic tenderness. Extremities: 2+ bilateral ankle edema, Capillary Refill Less than 3 Seconds Skin: Maceration of left great toe, small superficial ulcer around toenail, possible paronychia Musculoskeletal: No Tenderness to Palpation of Joints or Extremities Neurological: Cranial nerves II-XII grossly intact, DTR 2+/4 and Symmetrical, Neuro grossly intact Psych/Mental Status: Normal Affect, Appropriate. Results Lab / Micro Data Result Diagrams: 10/07/20 03:20 10/07/20 03:20 Labs: Laboratory Results - last 24 hr 10/07/20 03:20: WBC 6.2, RBC 4.14 L, Hgb 12.1 L, Hct 37.3 L, MCV 90.1, MCH 29.2, MCHC 32.4, RDW Std Deviation 46.5 H, RDW Coeff of Maurilio 14.1, Plt Count 167, MPV 8.8, Immature Gran % (Auto) 0.300, Neut % (Auto) 68.4, Lymph % (Auto) 15.4 L, [place] % (Auto) 8.0, Eos % (Auto) 7.1 H, Baso % (Auto) 0.8, Absolute Neuts (auto) 4.2, Absolute Lymphs (auto) 0.95, Nucleated RBC % 0 10/07/20 03:20: Sodium 143, Potassium 4.1, Chloride 109 H, Carbon Dioxide 28.0, Anion Gap 6, BUN 20 H, Creatinine 0.75, Estim Creat Clear Calc 53.17, Est GFR (MDRD) Af Amer 128, Est GFR (MDRD) Non-Af 106, BUN/Creatinine Ratio 26.6 H, Glucose 112 H, Calcium 8.6 Micro: Microbiology 10/07/20 03:33 Mucosa - Nose SARS-CoV-2 Antigen (Rapid) - Final Radiology Impression Chest X-Ray 10/07/20 03:29 IMPRESSION: Chronic bibasilar interstitial change with no acute cardiopulmonary disease Electronically Signed: Marty Ribeiro MD at 4:27 EDT Tel , Service support , Assessment & Plan Assessment/Plan (1) COPD exacerbation: PLAN: This 79-year-old [id number] male is being admitted for COPD exacerbation 1. COPD exacerbation: Mild hypoxia on exertion, 86% on room air. Patient is admitted MedSurg floor under observation. Bronchodilator, IV Solu-Medrol, incentive spirometry and chest physiotherapy. Mucinex 12 mg twice daily. This is the first COPD exacerbation in his life. Patient on Trelegy as an outpatient. Patient had PFT of February 2020 shows partially reversible severe large airway obstructive ventilatory defect with associated hyperinflation, air trapping and symmetric reduction in DLCO. Follow-up Dr. Kellogg as an outpatient. 2. Coronary artery disease status post PCI, AAA and hypertension: Patient follows Dr. Matta, last office visit September 2020. Currently no chest pain. Continue home medications. Echo of 07/2019shows EF 65%, trivial MR, TR with no evidence for diastolic dysfunction. Patient had PCI of multiple mid RCA and mid LAD. Patient has leg edema will give 1 dose of Lasix 40 mg IV. 3. Hypertension and dyslipidemia: Blood pressure is controlled. 4. Superficial left great toe paronychia/small ulcer: Patient was supposed to see Dr. Mayorga but could not get early appointment. consult Dr. Mayorga. Consult wound care nurse. 5. VTE prophylaxis: Patient has AAA aneurysm therefore pharmacological prophylaxis contraindicated. Bilateral SCDs. Living will/advanced directive/end of life care: Patient does not have living will or advanced directive. His is next to kin. After discussion of benefits/risks procedures involved with full code, DNR CC arrest and DNR CC, the patient opted for full code. Patient does want artificial life support including intubation, tube feed, ventilator and/chest compression, central venous catheter, vasopressor and DC shock if needed Total time spent in [id number] encounter in discussion of advanced directive 16 minutes. Charges/Coding Visit Charges OBSV E&M: 79042 Initial observation care L3 Procedures Hospitalists Procedures: 65229 Advncd Care Plan 30 Min
[2020-10-07] MEDS: 0.9% Saline Lock 10 ML Syringe IV ×2 (06:42→21:31)
[2020-10-07] MEDS: guaiFENesin 1,200 MG Tablet 1200 MG PO ×2 (08:58→21:32)
[2020-10-07] MEDS: Multivitamins,Therapeutic Tablet 1 TABLET PO (08:58)
[2020-10-07] MEDS: Metoprolol Tartrate 50 MG Tablet PO ×2 (08:58→21:31)
[2020-10-07] MEDS: Isosorbide Mononitrate 60 MG Tablet PO (08:59)
[2020-10-07] MEDS: Famotidine 20 MG Tablet PO ×2 (08:59→21:31)
[2020-10-07] MEDS: Cholecalciferol (VIT D3) 25 MCG TABLET (1,000 UNITS) PO (08:59)
[2020-10-07] MEDS: Tamsulosin HCl 0.4 MG Capsule PO (08:59)
[2020-10-07] MEDS: Furosemide 40 MG Tablet PO (08:59)
[2020-10-07] MEDS: Aspirin E.C. 81 MG Tablet PO (08:59)
[2020-10-07] MEDS: Polyethylene Glycol 3350 17 GM PACKET PO (09:01)
--- NOTE | 2020-10-07 10:27 | PCM.CONS.GEN ---
Assessment & Plan Assessment/Plan (1) Ingrowing nail, left great toe: (2) Toe pain, left: PLAN: I reviewed and discussed this case. Reassured no local signs of infection are noted and I do not recommend additional antibiotics for this condition. Verbal consent was obtained to perform a wedge resection with a nail nipper bedside. The area was cleansed with isopropyl alcohol and this was successfully performed. He had immediate relief with removal of the incurvated nail border. Topical Betadine and a Band-Aid was applied. He was advised to change his daily until there is resolution of drainage. He already has an appointment with the [facility] on 10-19-20 he was advised to keep that. To wash this site with antibacterial soap and water and to avoid soaking activities. Is okay to wear shoes as long as it does not press directly on this site causing discomfort. Other hospital medical management as noted per admitting team. He can follow-up in the outpatient setting. Thank you for the consultation. Please do not hesitate to call if you have any questions. Laura Mayorga DPM, [facility] [phone] HPI Consult Data Date of Consult: 10/07/20 HPI Narrative Reason for Consultation: Ingrown toenail and concern of infection HPI Narrative: JAGDEEP WALTERS, is a 79 M who was admitted for shortness of breath and has been managed for COPD exacerbation. I was consulted for evaluation of left great ingrown toenail. He relates he had a prior infection and worsening pain with an onset of 2 weeks ago. He tried to trim it at home and even poked it with a needle. He has been putting antibacterial cream on it and was seen in the outpatient setting by his primary care physician. He completed a 1 week course of oral antibiotic and does not recall the name of the medication. He denies current known odor or redness. He denies fever, chill, nausea, vomiting. He denies other joint pain to the foot. He denies any additional recent trauma to the foot. He denies rest paresthesias, claudication, or prior history of lower extremity ulcers. [facility] Medical History (Updated 10/07/20 @ 12:[address] Laura Mayorga DPM) Acquired blepharoptosis of left eyelid Actinic keratosis Alcohol abuse Atherosclerotic heart disease of [place] coronary artery without angina pectoris Bilateral knee pain Bilateral lower extremity edema Bilateral primary osteoarthritis of knee Cancer Chest pain COPD (chronic obstructive pulmonary disease) Debility Diastolic dysfunction Essential hypertension Family history of skin cancer GERD (gastroesophageal reflux disease) Great toe pain Hearing loss HTN (hypertension) Hypertension Late effect of cranial nerve injury Malignant melanoma of face Myocardial infarct Nicotine abuse Open forehead wound Personal history of malignant melanoma Pure hypercholesterolemia Smoker Tobacco abuse Toe infection Home Medications aspirin 81 mg tablet,delayed release 81 mg PO QDAY 08/27/17 [History Last Taken 10/06/20 81 mg] multivitamin 1 tab PO QDAY 08/27/17 [History Last Taken 10/06/20] calcium carbonate 430 mg calcium (1,000 mg) chewable tablet 430 mg PO DAILY 01/09/20 [History Last Taken 10/06/20] albuterol sulfate 90 mcg/actuation aerosol inhaler 2 puff INHALATION Q6H PRN #18 g 04/19/20 [Rx Last Taken 10/06/20 2 puffs] polyethylene glycol 3350 17 gram/dose oral powder 17 g PO DAILY 04/20/20 [History Last Taken 10/06/20] metoprolol tartrate 50 mg tablet 50 mg PO BID #180 tab 07/16/20 [Rx Last Taken 10/06/20] cholecalciferol (vitamin D3) 25 mcg (1,000 unit) capsule 25 mcg PO DAILY 07/20/20 [History Last Taken 10/06/20] mecobalamin (vitamin B12) 5,000 mcg lozenge 5,000 mcg PO DAILY 07/20/20 [History Last Taken 10/06/20] isosorbide mononitrate 60 mg tablet,extended release 24 hr 60 mg PO DAILY #90 tab 08/16/20 [Rx Last Taken 10/06/20] atorvastatin 40 mg tablet 40 mg PO QDAY #90 tab 09/14/20 [Rx Last Taken 10/06/20 40 mg] tamsulosin 0.4 mg capsule 0.4 mg PO DAILY #90 cap 09/14/20 [Rx Last Taken 10/06/20] acetaminophen 325 mg tablet 650 mg PO Q6H PRN tab 09/27/20 [History Last Taken Unknown] doxazosin 2 mg tablet 2 mg PO QHS tab 09/27/20 [History Last Taken 10/06/20] fluticasone fur. 100 mcg-umeclid 62.5 mcg-vilant 25 mcg inhalat.powder 1 inh INHALATION DAILY #28 ea 09/27/20 [Rx Last Taken 10/06/20] Allergy/AdvReac Type Severity Reaction Status Date / Time No Known Allergies Allergy Verified 10/07/20 03:23 Family History Other Arthritis Atrial fibrillation Heart disease Osteoporosis Skin cancer Surgical History (Updated 10/07/20 @ 06:06 by Mariela Haley) History of bilateral cataract extraction History of coronary artery stent placement History of fracture of finger History of local excision of skin lesion History of tonsillectomy Hx of vasectomy Postsurgical percutaneous transluminal coronary angioplasty (PTCA) status (~07/28/17) Presence of stent in coronary artery (~07/28/17) Social History Smoking Status: Current every day smoker tobacco type: cigarettes Tobacco: How many years used: 65 Electronic Cigarette Use: not used second hand exposure: Yes alcohol intake: current alcohol intake frequency: 0-2 drinks per day Alcohol type: beer substance use type: does not use what type of physical activity do you participate in: walking ROS Gastrointestinal Gastrointestinal: Denies nausea or vomiting Musculoskeletal Musculoskeletal: Denies extremity pain, joint pain or tingling Integumentary Integumentary: Reports wounds and other Details: Ingrown toenail Neurologic Neurologic: Denies tingling Physical Exam Const alert and oriented x3 General Appearance: cooperative HEENT normocephalic Extremity Extremity Narrative: No calf tenderness 2 out of 4 palpable DT pulse in 1 out of 4 PT pulse bilateral Muscle wasting noted No pain to adjacent left hallux interphalangeal joint General Extremity: edema and no tenderness to palpation of joints or extremities; Negative for cyanosis Skin Skin Narrative: no purulence, no streaking, no odor, no infection. There is an incurvated medial border of the lateral hallux nail with scant serosanguineous drainage noted upon wedge resection. There is no bogginess or fluctuance on palpation. No necrosis or devitalized tissue. No deep tissue exposure. General Skin Exam: Negative for erythema Neuro Neuro Narrative: lack of normal epicritic sensation via light touch is consistent with neuropathy status Psych cooperative and affect normal Lab / Micro Data Result Diagrams: 10/07/20 03:20 10/07/20 03:20 Labs: Laboratory Results - last 24 hr 10/07/20 03:20: WBC 6.2, RBC 4.14 L, Hgb 12.1 L, Hct 37.3 L, MCV 90.1, MCH 29.2, MCHC 32.4, RDW Std Deviation 46.5 H, RDW Coeff of Maurilio 14.1, Plt Count 167, MPV 8.8, Immature Gran % (Auto) 0.300, Neut % (Auto) 68.4, Lymph % (Auto) 15.4 L, [place] % (Auto) 8.0, Eos % (Auto) 7.1 H, Baso % (Auto) 0.8, Absolute Neuts (auto) 4.2, Absolute Lymphs (auto) 0.95, Nucleated RBC % 0 10/07/20 03:20: Sodium 143, Potassium 4.1, Chloride 109 H, Carbon Dioxide 28.0, Anion Gap 6, BUN 20 H, Creatinine 0.75, Estim Creat Clear Calc 53.17, Est GFR (MDRD) Af Amer 128, Est GFR (MDRD) Non-Af 106, BUN/Creatinine Ratio 26.6 H, Glucose 112 H, Calcium 8.6 Micro: Microbiology 10/07/20 03:33 Mucosa - Nose SARS-CoV-2 Antigen (Rapid) - Final Radiology Impression Chest X-Ray 10/07/20 03:29 IMPRESSION: Chronic bibasilar interstitial change with no acute cardiopulmonary disease Electronically Signed: Marty Ribeiro MD at 4:27 EDT Tel , Service support ,
--- NOTE | 2020-10-07 11:54 | PCM.HOSP.N ---
Hospitalist Note Patient is an 79-year-old male admitted with shortness of breath. An assessment of COPD with acute exacerbation made admitted to a monitored bed for subsequent management Patient seen and examined, his initial assessment including history and physical diagnostic data and management orders reviewed ?We will follow.
[2020-10-07] MEDS: Atorvastatin Calcium 40 MG Tablet PO (21:31)
[2020-10-07] MEDS: Doxazosin 1 MG Tablet 2 MG PO (21:32)
[2020-10-07] MEDS: Mag Hydrox/Al Hydrox/Simeth 30 ML UDC PO (23:56)
[2020-10-08] VITALS (7 sets, daily range): BP systolic 104–115; BP diastolic 50–65; PULSE 80–98; RESP 16–18; TEMP 35.8–36.8; O2SAT 92–95
[2020-10-08] MEDS: Acetaminophen 325 MG Tablet 650 MG PO (01:48)
[2020-10-08 07:30] LABS: Anion Gap 3 (5-15); BUN 20 mg/dL (7-18); BUN/Creat Ratio 24.9 RATIO (10-20); Calcium,Total 8.7 mg/dL (8.5-10.1); Chloride 108 mmol/L (98-107); EST Glomerular Filtration Rate 98 mL/min (>60); Est Glom Filt Rate - Afr Amer 119 mL/min (>60); Estimated Creatinine Clearance 66.46 ml/min; Glucose 116 mg/dL (74-106); Potassium 4.6 mmol/L (3.5-5.1); Sodium Level 140 mmol/L (136-145)
[2020-10-08] MEDS: Multivitamins,Therapeutic Tablet 1 TABLET PO (08:34)
[2020-10-08] MEDS: predniSONE 20 MG Tablet 40 MG PO (08:34)
[2020-10-08] MEDS: Furosemide 40 MG Tablet PO (10:37)
[2020-10-08] MEDS: Polyethylene Glycol 3350 17 GM PACKET PO (10:37)
[2020-10-08] MEDS: Isosorbide Mononitrate 60 MG Tablet PO (10:37)
[2020-10-08] MEDS: Azithromycin 250 MG Tablet 500 MG PO (10:37)
[2020-10-08] MEDS: Aspirin E.C. 81 MG Tablet PO (10:37)
[2020-10-08] MEDS: guaiFENesin 1,200 MG Tablet 1200 MG PO (10:37)
[2020-10-08] MEDS: Cholecalciferol (VIT D3) 25 MCG TABLET (1,000 UNITS) PO (10:37)
[2020-10-08] MEDS: Metoprolol Tartrate 50 MG Tablet PO (10:37)
[2020-10-08] MEDS: Famotidine 20 MG Tablet PO (10:37)
[2020-10-08] MEDS: Tamsulosin HCl 0.4 MG Capsule PO (10:37)
--- NOTE | 2020-10-08 12:03 | PCM.DC ---
Discharge Instructions Diet Discharge Diet: Low fat / Low cholesterol Activity Discharge Activity: Return to Normal Activity Dressing / Incision Call your doctor if you observe: Fever of 101 or Higher, Shortness of breath, Dizziness and Chest pain Follow Up Care Test Results: Test results from this visit will be discussed in further detail at your follow-up appointment, if applicable. Discharge Plan Admission Admit Date/Time: 10/07/20 05:32 Primary Reason for Your Visit: COPD exacerbation Attending Provider: Simone Parham Primary Care Provider: Robert Hutchinson Consulting Providers: Laura Mayorga Instructions Additional Instructions / Restrictions: Wash foot daily with antibacterial soap and water. Do not soak foot. Change left hallux Band-Aid daily until you do not notice any drainage on the Band-Aid. Wear shoes that fit properly and do not directly press on this prior ingrown toenail site. Discharge Orders/Prescriptions Prescriptions: New azithromycin 250 mg Tablet 500 mg PO Q24 Qty: 8 RF: 0 prednisone 10 mg tablet See Taper mg PO DAILY Qty: 30 RF: 0 Continued aspirin 81 mg tablet,delayed release (DR/EC) 81 mg PO QDAY RF: 0 multivitamin tablet 1 tab PO QDAY RF: 0 Antacid Ultra Strength 430 mg calcium (1,000 mg) tablet,chewable 430 mg PO DAILY RF: 0 doxazosin 2 mg tablet 2 mg PO QHS RF: 0 acetaminophen 325 mg tablet 650 mg PO Q6H PRN (Reason: PAIN/FEVER) RF: 0 polyethylene glycol 3350 [Miralax] 17 gram/dose powder 17 g PO DAILY RF: 0 cholecalciferol (vitamin D3) 25 mcg (1,000 unit) capsule 25 mcg PO DAILY RF: 0 mecobalamin (vitamin B12) 5,000 mcg lozenge 5,000 mcg PO DAILY RF: 0 Trelegy Ellipta 100-62.5-25 mcg blister with device 1 inh INHALATION DAILY Qty: 28 RF: 5 albuterol sulfate 90 mcg/actuation HFA aerosol inhaler 2 puff INHALATION Q6H PRN (Reason: shortness of breath or wheezing) Qty: 18 RF: 1 metoprolol tartrate 50 mg tablet 50 mg PO BID Qty: 180 RF: 3 isosorbide mononitrate 60 mg tablet extended release 24 hr 60 mg PO DAILY Qty: 90 RF: 3 atorvastatin 40 mg tablet 40 mg PO QDAY Qty: 90 RF: 3 tamsulosin [Flomax] 0.4 mg capsule 0.4 mg PO DAILY Qty: 90 RF: 2 Referrals / Follow Up: Robert Hutchinson MD [Primary Care Provider] - In 1 Week Laura Mayorga DPM [STAFF PHYSICIAN] - Within 1 Month (Follow-up at the [facility] as you are already scheduled. It is okay to follow-up with any of the 3 [facility] physicians. Call [phone] to confirm appointment time and date.) Disposition Disposition (needs filled in before D/C Order can be placed): Home, Self Care
--- NOTE | 2020-10-08 12:14 | DS.PCM_ITS ---
Documented by User: Mignon Lyle NP, [employer]ANGING OPERATOR-C 10/08/20 12:28 Providers Date of Admission: 10/07/20 Date of Discharge: 10/08/20 Primary Care Physician: Dr. Robert Hutchinson MD Consultations 10/07/20 05:55 Consult: Podiatry Routine Consulting Provider: Laura Mayorga Reason for Consult: left great toe ulcer, paronychia EMERGENT Consult: No MD Notified: Yes Date Notified: 10/07/20 Time Notified: 07:50 Method of Notification: Text Reason For Visit: COPD EXACERBATION Diagnosis Discharge Diagnosis (1) Ingrowing nail, left great toe: Status: Acute Code(s): L60.0 - Ingrowing nail (2) Toe pain, left: Status: Acute Code(s): M79.675 - Pain in left toe(s) Medications at Discharge Home Medications aspirin 81 mg tablet,delayed release 81 mg PO QDAY 08/27/17 multivitamin 1 tab PO QDAY 08/27/17 calcium carbonate 430 mg calcium (1,000 mg) chewable tablet 430 mg PO DAILY 01/09/20 albuterol sulfate 90 mcg/actuation aerosol inhaler 2 puff INHALATION Q6H PRN #18 g 04/19/20 polyethylene glycol 3350 17 gram/dose oral powder 17 g PO DAILY 04/20/20 metoprolol tartrate 50 mg tablet 50 mg PO BID #180 tab 07/16/20 cholecalciferol (vitamin D3) 25 mcg (1,000 unit) capsule 25 mcg PO DAILY 07/20/20 mecobalamin (vitamin B12) 5,000 mcg lozenge 5,000 mcg PO DAILY 07/20/20 isosorbide mononitrate 60 mg tablet,extended release 24 hr 60 mg PO DAILY #90 tab 08/16/20 atorvastatin 40 mg tablet 40 mg PO QDAY #90 tab 09/14/20 tamsulosin 0.4 mg capsule 0.4 mg PO DAILY #90 cap 09/14/20 acetaminophen 325 mg tablet 650 mg PO Q6H PRN tab 09/27/20 doxazosin 2 mg tablet 2 mg PO QHS tab 09/27/20 fluticasone fur. 100 mcg-umeclid 62.5 mcg-vilant 25 mcg inhalat.powder 1 inh INHALATION DAILY #28 ea 09/27/20 azithromycin 500 mg PO Q24 #8 tab 10/08/20 prednisone See Taper PO DAILY #30 tab 10/08/20 Hospital Course Operations None Procedures None Summary of Care Provided Minutes Spent on Discharge: 35 Hospital Course: Patient is an 79-year-old male admitted 10/07/2020 due to shortness of breath. 1. COPD exacerbation-mild. Initially noted to be hypoxic on exertion, 86% on room air. However during admission patient was not noted to be hypoxic and oxygen testing prior to discharge at rest and with ambulation stable on room air. Continue home inhaler regimen. Prednisone taper at discharge. 5-day course of azithromycin empirically. Covid negative. Follow-up with PCP in 1 week. 2. CAD with history of PCI-continue medical management. Follows with Dr. Kyara russell. 3. Abdominal aortic aneurysm-scheduled for CT for routine surveillance day of discharge. Continue outpatient follow-up. 4. Hypertension-stable, continue home medication regimen. 5. Hyperlipidemia- continue statin. 6. BPH-on Flomax. 7. Left great ingrown toenail-podiatry consulted during admission. Lab resection performed. Continue outpatient follow-up. Patient seen and examined prior to discharge. Physical assessment as noted below. Patient is stable for discharge with follow up recommendations as noted above. This patient was seen by LOTUS Meade under the supervision of Dr. Parham. Physical Exam Const alert, oriented x3 and no apparent distress Orientation / Consciousness: awake, oriented to person, oriented to place and oriented to time HEENT normocephalic and moist oral mucous membranes Eyes PERRL, EOMs intact bilaterally and conjunctivae normal Neck no lymphadenopathy Resp clear to auscultation bilaterally Auscultation: diminished lung sounds Cardio regular rate, regular rhythm and no murmurs Peripheral Pulses: pulses 2+ throughout GI normal to inspection, nondistended, normoactive bowel sounds, non-tender and non-distended Extremity normal to inspection General Extremity: edema bilateral lower extremity (chronic) Details: mild Skin no rashes or lesions noted Lesions: no lesions Rashes: no rashes Trauma: no lacerations or abrasions Neuro CN's II-XII intact bilaterally, no focal motor deficits, no sensory deficits noted and deep tendon reflexes 2+ bilaterally Psych mental status grossly normal and affect normal Medical Records Data Medical Nutrition Assessment Dietitian: Malnutrition Criteria Met Start: 10/07/20 12:40 Freq: Status: Active Protocol: Document 10/07/20 12:49 AG (Rec: 10/07/20 12:49 AG [id number]) Nutrition Malnutrition Evidence of Malnutrition Exists No Intake Problem Excessive Mineral Intake (specify) Etiology (sodium) r/t lack of interest in following a low sodium diet Signs/Symptoms as evidenced by pt reports of regular consumption of high sodium foods- chips, bologna, hot dogs Status Active Problem Recommendation Dietitian Recommendations/Changes continue cardiac diet as tolerated Weight / BMI Weight Weight: 172 lb 13.478 oz Body Mass Index (BMI) 27.8 ABG / Lab / Microbiology Data Result Diagrams: 10/07/20 03:20 10/08/20 06:52 Laboratory: Laboratory Results - last 24 hr 10/08/20 06:52: Sodium 140, Potassium 4.6, Chloride 108 H, Carbon Dioxide 29.0, Anion Gap 3 L, BUN 20 H, Creatinine 0.80, Estim Creat Clear Calc 66.46, Est GFR (MDRD) Af Amer 119, Est GFR (MDRD) Non-Af 98, BUN/Creatinine Ratio 24.9 H, Glucose 116 H, Calcium 8.7 Microbiology: Microbiology 10/07/20 03:33 Mucosa - Nose SARS-CoV-2 Antigen (Rapid) - Final D/C Instructions Discharge Diet: Low fat / Low cholesterol Call your doctor if you observe: Fever of 101 or Higher, Shortness of breath, Dizziness and Chest pain Meaningful Use Info Meaningful Use Diagnoses (Choose all that apply): None applicable Discharge Plan Admission Admit Date/Time: 10/07/20 05:32 Primary Reason for Your Visit: COPD exacerbation Attending Provider: Simone Parham Primary Care Provider: Robert Hutchinson Consulting Providers: Laura Mayorga Instructions Additional Instructions / Restrictions: Patient Problems: Altered Health Status related to Hospitalization Patient Goals: *Optimal Level of Health *Keep Appointments *Medication Compliance *Remain SafeWash foot daily with antibacterial soap and water. Do not soak foot. Change left hallux Band-Aid daily until you do not notice any drainage on the Band-Aid. Wear shoes that fit properly and do not directly press on this prior ingrown toenail site. Discharge Orders/Prescriptions Prescriptions: New azithromycin 250 mg Tablet 500 mg PO Q24 Qty: 8 RF: 0 prednisone 10 mg tablet See Taper mg PO DAILY Qty: 30 RF: 0 Continued aspirin 81 mg tablet,delayed release (DR/EC) 81 mg PO QDAY RF: 0 multivitamin tablet 1 tab PO QDAY RF: 0 Antacid Ultra Strength 430 mg calcium (1,000 mg) tablet,chewable 430 mg PO DAILY RF: 0 doxazosin 2 mg tablet 2 mg PO QHS RF: 0 acetaminophen 325 mg tablet 650 mg PO Q6H PRN (Reason: PAIN/FEVER) RF: 0 polyethylene glycol 3350 [Miralax] 17 gram/dose powder 17 g PO DAILY RF: 0 cholecalciferol (vitamin D3) 25 mcg (1,000 unit) capsule 25 mcg PO DAILY RF: 0 mecobalamin (vitamin B12) 5,000 mcg lozenge 5,000 mcg PO DAILY RF: 0 Trelegy Ellipta 100-62.5-25 mcg blister with device 1 inh INHALATION DAILY Qty: 28 RF: 5 albuterol sulfate 90 mcg/actuation HFA aerosol inhaler 2 puff INHALATION Q6H PRN (Reason: shortness of breath or wheezing) Qty: 18 RF: 1 metoprolol tartrate 50 mg tablet 50 mg PO BID Qty: 180 RF: 3 isosorbide mononitrate 60 mg tablet extended release 24 hr 60 mg PO DAILY Qty: 90 RF: 3 atorvastatin 40 mg tablet 40 mg PO QDAY Qty: 90 RF: 3 tamsulosin [Flomax] 0.4 mg capsule 0.4 mg PO DAILY Qty: 90 RF: 2 Referrals / Follow Up: Robert Hutchinson MD [Primary Care Provider] - In 1 Week Laura Mayorga DPM [STAFF PHYSICIAN] - Within 1 Month (Follow-up at the [facility] as you are already scheduled. It is okay to follow-up with any of the 3 [facility] physicians. Call [phone] to confirm appointment time and date.) Gwendolyn Walters NP, [employer]ANG[employer] OPERATOR-C [Nurse Practitioner] - Within 2 Weeks Disposition Disposition (needs filled in before D/C Order can be placed): Home, Self Care Documented by User: Dr. Simone Parham DO 10/08/20 16:52 Providers Date of Admission: 10/07/20 Reason For Visit: COPD EXACERBATION Medications at Discharge Home Medications aspirin 81 mg tablet,delayed release 81 mg PO QDAY 08/27/17 multivitamin 1 tab PO QDAY 08/27/17 calcium carbonate 430 mg calcium (1,000 mg) chewable tablet 430 mg PO DAILY 01/09/20 albuterol sulfate 90 mcg/actuation aerosol inhaler 2 puff INHALATION Q6H PRN #18 g 04/19/20 polyethylene glycol 3350 17 gram/dose oral powder 17 g PO DAILY 04/20/20 metoprolol tartrate 50 mg tablet 50 mg PO BID #180 tab 07/16/20 cholecalciferol (vitamin D3) 25 mcg (1,000 unit) capsule 25 mcg PO DAILY 07/20/20 mecobalamin (vitamin B12) 5,000 mcg lozenge 5,000 mcg PO DAILY 07/20/20 isosorbide mononitrate 60 mg tablet,extended release 24 hr 60 mg PO DAILY #90 tab 08/16/20 atorvastatin 40 mg tablet 40 mg PO QDAY #90 tab 09/14/20 tamsulosin 0.4 mg capsule 0.4 mg PO DAILY #90 cap 09/14/20 acetaminophen 325 mg tablet 650 mg PO Q6H PRN tab 09/27/20 doxazosin 2 mg tablet 2 mg PO QHS tab 09/27/20 fluticasone fur. 100 mcg-umeclid 62.5 mcg-vilant 25 mcg inhalat.powder 1 inh INHALATION DAILY #28 ea 09/27/20 azithromycin 500 mg PO Q24 #8 tab 10/08/20 prednisone See Taper PO DAILY #30 tab 10/08/20 ABG / Lab / Microbiology Data Result Diagrams: 10/07/20 03:20 10/08/20 06:52 Discharge Plan Admission Admit Date/Time: 10/07/20 05:32 Primary Reason for Your Visit: COPD exacerbation Attending Provider: Simone Parham Primary Care Provider: Robert Hutchinson Consulting Providers: Laura Mayorga Instructions Additional Instructions / Restrictions: Patient Problems: Altered Health Status related to Hospitalization Patient Goals: *Optimal Level of Health *Keep Appointments *Medication Compliance *Remain SafeWash foot daily with antibacterial soap and water. Do not soak foot. Change left hallux Band-Aid daily until you do not notice any drainage on the Band-Aid. Wear shoes that fit properly and do not directly press on this prior ingrown toenail site. Discharge Orders/Prescriptions Prescriptions: New azithromycin 250 mg Tablet 500 mg PO Q24 Qty: 8 RF: 0 prednisone 10 mg tablet See Taper mg PO DAILY Qty: 30 RF: 0 Continued aspirin 81 mg tablet,delayed release (DR/EC) 81 mg PO QDAY RF: 0 multivitamin tablet 1 tab PO QDAY RF: 0 Antacid Ultra Strength 430 mg calcium (1,000 mg) tablet,chewable 430 mg PO DAILY RF: 0 doxazosin 2 mg tablet 2 mg PO QHS RF: 0 acetaminophen 325 mg tablet 650 mg PO Q6H PRN (Reason: PAIN/FEVER) RF: 0 polyethylene glycol 3350 [Miralax] 17 gram/dose powder 17 g PO DAILY RF: 0 cholecalciferol (vitamin D3) 25 mcg (1,000 unit) capsule 25 mcg PO DAILY RF: 0 mecobalamin (vitamin B12) 5,000 mcg lozenge 5,000 mcg PO DAILY RF: 0 Trelegy Ellipta 100-62.5-25 mcg blister with device 1 inh INHALATION DAILY Qty: 28 RF: 5 albuterol sulfate 90 mcg/actuation HFA aerosol inhaler 2 puff INHALATION Q6H PRN (Reason: shortness of breath or wheezing) Qty: 18 RF: 1 metoprolol tartrate 50 mg tablet 50 mg PO BID Qty: 180 RF: 3 isosorbide mononitrate 60 mg tablet extended release 24 hr 60 mg PO DAILY Qty: 90 RF: 3 atorvastatin 40 mg tablet 40 mg PO QDAY Qty: 90 RF: 3 tamsulosin [Flomax] 0.4 mg capsule 0.4 mg PO DAILY Qty: 90 RF: 2 Referrals / Follow Up: Robert Hutchinson MD [Primary Care Provider] - In 1 Week Laura Mayorga DPM [STAFF PHYSICIAN] - Within 1 Month (Follow-up at the [facility] as you are already scheduled. It is okay to follow-up with any of the 3 [facility] physicians. Call [phone] to confirm appointment time and date.) Gwendolyn Walters FLANGING OPERATOR, [employer] [facility]PERATOR[facility]C [Nurse Practitioner] - Within 2 Weeks Disposition Disposition (needs filled in before D/C Order can be placed): Home, Self Care Charges/Coding Addendum Addendum: Patient seen and examined independently. Data and vitals reviewed. I agree with the above note by the nurse practitioner. This is an 79-year-old male presents with shortness of breath. Patient was noted to be 85% on room air but subsequent remained stable. Patient was treated with, initially methylprednisolone and then prednisone. Patient remained stable and was discharged home in stable condition. Physical exam: No acute distress and afebrile. Heart rate regular rate and rhythm plus S1-S2 with a murmurs Or rubs. Lungs are diminished but clear bilaterally. Visit Charges OBSV E&M: 38125 Observation care discharge
--- NOTE | 2020-10-08 12:33 | PHA.DC.MC ---
Pharmacy Service has performed discharge medication reconciliation and counseling for this patient. 1. AZITHROMYCIN 500MG PO DAILY X 4 DAYS 2. PREDNISONE 40MG PO DAILY X 3 DAYS, THEN 30MG X 3 DAYS, THEN 20MG X 3 DAYS, THEN 10MG X 3 DAYS The patient's discharge medication list was reviewed for discrepancies and discrepancies were resolved. Home Medications aspirin 81 mg tablet,delayed release 81 mg PO QDAY 08/27/17 multivitamin 1 tab PO QDAY 08/27/17 calcium carbonate 430 mg calcium (1,000 mg) chewable tablet 430 mg PO DAILY 01/09/20 albuterol sulfate 90 mcg/actuation aerosol inhaler 2 puff INHALATION Q6H PRN #18 g 04/19/20 polyethylene glycol 3350 17 gram/dose oral powder 17 g PO DAILY 04/20/20 metoprolol tartrate 50 mg tablet 50 mg PO BID #180 tab 07/16/20 cholecalciferol (vitamin D3) 25 mcg (1,000 unit) capsule 25 mcg PO DAILY 07/20/20 mecobalamin (vitamin B12) 5,000 mcg lozenge 5,000 mcg PO DAILY 07/20/20 isosorbide mononitrate 60 mg tablet,extended release 24 hr 60 mg PO DAILY #90 tab 08/16/20 atorvastatin 40 mg tablet 40 mg PO QDAY #90 tab 09/14/20 tamsulosin 0.4 mg capsule 0.4 mg PO DAILY #90 cap 09/14/20 acetaminophen 325 mg tablet 650 mg PO Q6H PRN tab 09/27/20 doxazosin 2 mg tablet 2 mg PO QHS tab 09/27/20 fluticasone fur. 100 mcg-umeclid 62.5 mcg-vilant 25 mcg inhalat.powder 1 inh INHALATION DAILY #28 ea 09/27/20 azithromycin 500 mg PO Q24 #8 tab 10/08/20 prednisone See Taper PO DAILY #30 tab 10/08/20 The patient was counseled on the following discharge medications and changes in medications for homegoing were reviewed. The Reason for Use, instructions for use, and potential side effects were reviewed for all new medications. The patient's questions regarding all of their medications were answered. The patient was able to verbally demonstrate an understanding of their discharge medications.
== END 2020-10-08 12:06 | disposition home or self-care (01) ==
LOC: ED 04:56 → PCU 05:39
PROVIDERS: Admitting Provider Internal Medicine; Emergency Provider Emergency Medicine; PCP Internal Medicine
DX: J44.1 Chronic obstructive pulmonary disease with (acute) exacerbation (principal); L60.0 Ingrowing nail; I25.10 Atherosclerotic heart disease of native coronary artery without angina pectoris; I10 Essential (primary) hypertension; E78.5 Hyperlipidemia, unspecified; N40.0 Benign prostatic hyperplasia without lower urinary tract symptoms; L03.032 Cellulitis of left toe; I71.4 Abdominal aortic aneurysm, without rupture; K21.9 Gastro-esophageal reflux disease without esophagitis; F17.210 Nicotine dependence, cigarettes, uncomplicated; Z79.899 Other long term (current) drug therapy; Z79.82 Long term (current) use of aspirin; Z79.51 Long term (current) use of inhaled steroids; I71.00 Dissection of unspecified site of aorta
CPT/HCPCS: 11765; 36415; 71045; 74174; 80048; 85025; 87426; 93005; 94640; 94667; 94668; 96374; 96376; 97802; 99218; 99285; 99406; Q9967; A4216; G0378

== ENCOUNTER → 2020-10-08 14:37 | Outpatient (CLI) | payer MEDICARE, OTHER, SELFPAY ==
[2020-09-27 10:00] VITALS: BMI 28.9
[2020-10-07 05:43] VITALS: BMI 27.8
--- NOTE | 2020-10-08 14:43 | CT_ITS ---
STUDY: CTA OF THE ABDOMINAL AORTA AND BILATERAL LOWER EXTREMITIES REASON FOR EXAM: Male, 79 years old. AAA RADIATION DOSAGE (If Supplied By Facility): CTDIvol = ( 21.11 ) mGy, DLP = ( 709.24 ) mGycm TECHNIQUE: Axial CT angiography multi-detector data acquisition was obtained from the lung bases to the pubic senses following intravenous administration of IV 100mL Isovue-370. Axial images and MIP images were reconstructed from the axial data set. Post-processing of the angiographic images was performed, with multiplanar reformation and 3D reconstruction. Individualized dose optimization techniques were used for this CT. TECHNICAL QUALITY: Good COMPARISON: 09/16/2019 Descriptors of Narrowing: None (0%) Mild (< 50%) Moderate (50-70%) Severe (70-90%) Subtotal/Total Occlusion (90-100%) Non-Evaluable (technically non-diagnostic FINDINGS: Abdominal aorta: There is no change in the 3.4 cm aneurysm of the infrarenal aorta with peripheral calcified and noncalcified plaque. Celiac and superior mesenteric arteries: No demonstrated narrowing. Inferior mesenteric artery: No demonstrated narrowing. Right renal artery(arteries): No demonstrated narrowing. Left renal artery(arteries): No demonstrated narrowing. Right common iliac artery: No change in the fusiform dilatation of the right common iliac artery with a maximal diameter 20 mm. Right external iliac artery: No demonstrated narrowing. Right internal iliac artery: No demonstrated narrowing. Left common iliac artery: No change in the fusiform dilatation of the left common iliac artery with maximal diameter of 20 mm. Left external iliac artery: No demonstrated narrowing. Left internal iliac artery: No demonstrated narrowing. CT/CT ANGIO ABD&PEL W/O&W/DYE IMPRESSION: No change in 3.4 cm abdominal aortic aneurysm with dilatation of the common iliac arteries. Electronically Signed: Christopher Szymanski MD at 16:24 EDT Tel , Service support ,
== END ==
PROVIDERS: PCP Internal Medicine; Referring Provider Internal Medicine Cardiovascular Disease; Visit Provider Internal Medicine Cardiovascular Disease
DX: I71.9 Aortic aneurysm of unspecified site, without rupture (principal); I71.00 Dissection of unspecified site of aorta
CPT/HCPCS: 74174; Q9967

== ENCOUNTER → 2021-01-21 14:35 | Outpatient (CLI) | payer MEDICARE, OTHER, SELFPAY ==
[2021-01-21 15:54] LABS: PSA,Total- Diagnostic 0.01 ng/mL (0.0-4.0)
== END ==
PROVIDERS: PCP Internal Medicine; Visit Provider Urology
DX: C61 Malignant neoplasm of prostate (principal)
CPT/HCPCS: 36415; 84153

== ENCOUNTER 2021-04-16 10:55 | Outpatient (CLI) | payer MEDICARE, OTHER, SELFPAY ==
[2021-04-16 11:47] LABS: Anion Gap 7 (5-15); BUN 20 mg/dL (7-18); BUN/Creat Ratio 21.7 RATIO (10-20); Chloride 104 mmol/L (98-107); Creatinine, Serum 0.92 mg/dL (0.70-1.30); EST Glomerular Filtration Rate 84 mL/min (>60); Est Glom Filt Rate - Afr Amer 101 mL/min (>60); Glucose 102 mg/dL (74-106); Potassium 4.4 mmol/L (3.5-5.1); Sodium Level 140 mmol/L (136-145)
[2021-04-16 11:52] LABS: BNP,B-Type NATRIURETIC PEPTIDE 48.7 pg/mL (0-100)
== END 2021-04-16 23:59 | disposition home or self-care (01) ==
LOC: LAB 10:59
PROVIDERS: PCP Internal Medicine; Visit Provider Nurse Practitioner Family
DX: R06.00 Dyspnea, unspecified (principal); I51.9 Heart disease, unspecified
CPT/HCPCS: 36415; 80048; 83880

== ENCOUNTER 2021-05-08 07:25 | Outpatient (CLI) | payer MEDICARE, OTHER, SELFPAY ==
--- NOTE | 2021-05-08 10:21 | STRESSREP ---
Stress Test Report Date: 05-08-2021 Procedure: Pharmacologic stress nuclear imaging study Indications: Chest pain; CAD; PCI; peripheral arterial disease Consent: Per the patient Procedure: The patient underwent pharmacologic (Regadenoson 0.4mg ) evaluation with a peak heart rate of 94 beats per minute (67%predicted maximal heart rate) and a peak blood pressure of 140/66 mmHg. The baseline ECG demonstrated normal sinus rhythm. The peak pharmacologic ECG demonstrated no obvious ECG changes. There were no cardiac dysrhythmias pretest, during pharmacologic infusion, or recovery. There was no complaint of chest discomfort during pharmacologic infusion or recovery. The examination was discontinued secondary to completion of protocol. Impression: 1. Pharmacologic (Regadenoson) evaluation 2. Peak pharmacologic ECG with no obvious ECG changes. 3. There were no cardiac dysrhythmias pretest, during pharmacologic infusion, or recovery. 4. Nuclear images pending Myocardial perfusion imaging study: Technique: The patient was injected with 11.0 millicuries of technetium 99m Cardiolite and subsequently rest SPECT Cardiolite nuclear imaging was obtained in the horizontal long, vertical long, and short axis views. The patient underwent pharmacologic (Regadenoson) evaluation with a peak heart rate of 94 beats per minute (67% percent predicted maximal heart rate) and a peak blood pressure of 140/66 mmHg. The patient was injected with 34.2 millicuries of technetium 99m Cardiolite and subsequently stress SPECT Cardiolite nuclear imaging was obtained in the horizontal long, vertical long, and short axis views. A gated Cardiolite study at peak stress was obtained. Interpretation: Rest and stress SPECT Cardiolite nuclear imaging status post realignment, normalization, and attenuation correction demonstrate a small area of subtle diminished tracer uptake near the apical segments without significant change between rest and stress. There is end systolic thickening and brightening. The gated Cardiolite study demonstrates myocardial thickening and inward wall motion. The reported LVEF is 72%. Impression: 1. Rest and stress SPECT current nuclear imaging demonstrate myocardial perfusion changes appearing compatible with an area of physiologic apical thinning with no obvious myocardial perfusion changes considered diagnostic for associated stress-induced myocardial ischemia. 2. The gated Cardiolite study reports an LVEF of 72%. This note was generated with [employer] software. It may contain incorrect words, spelling, and punctuation that were not noted in checking the note before signing.
== END 2021-05-08 23:59 | disposition home or self-care (01) ==
LOC: CVS 07:27
PROVIDERS: PCP Internal Medicine; Referring Provider Nurse Practitioner Family; Visit Provider Nurse Practitioner Family
DX: R07.9 Chest pain, unspecified (principal); I10 Essential (primary) hypertension; E78.00 Pure hypercholesterolemia, unspecified; R06.00 Dyspnea, unspecified; Z95.5 Presence of coronary angioplasty implant and graft; Z72.0 Tobacco use
CPT/HCPCS: 78452; 93017; A9500; A4216; J2785

== ENCOUNTER → 2021-07-24 | Outpatient (CLI) | payer MEDICARE, OTHER, SELFPAY ==
[2021-07-24 14:08] LABS: PSA,Total- Diagnostic 0.04 ng/mL (0.0-4.0)
== END | disposition home or self-care (01) ==
LOC: LAB 12:10
PROVIDERS: PCP Internal Medicine; Visit Provider Urology
DX: C61 Malignant neoplasm of prostate (principal)
CPT/HCPCS: 36415; 84153; 84403

== ENCOUNTER → 2021-11-04 | Outpatient (CLI) | payer MEDICARE, OTHER, SELFPAY ==
[2021-11-04 12:20] LABS: Absolute Lymphocyte Count 0.74 X10^3/uL (0.83-4.51); Absolute Neutrophil Count 4.4 X10^3/uL (2.0-7.7); Basophil# 0.05 X10^3/uL; Basophil% 0.8 % (0-1); Eosinophil# 0.28 X10^3/uL; Eosinophils% 4.7 % (0-5); Hematocrit 38.2 % (40-54); Hemoglobin 12.3 g/dL (13.0-16.5); Lymphocyte # 0.74 X10^3/ul (0.83-4.51); Lymphocyte % 12.5 % (19-41); Mean Corp Hgb Conc 32.2 g/dL (32-36); Mean Corpuscular Hgb 29.4 pg (27.0-32.0); Mean Corpuscular Volume 91.2 fL (80-94); Mean Platelet Vol. 9.8 fl (6.2-12.0); Monocyte# 0.41 X10^3/uL; Monocyte% 6.9 % (0-10); NRBC Flagged by Analyzer 0 % (0-5); Neutrophil # 4.39 X10^3/uL (2.7-7.7); Neutrophil % 74.6 % (47-70); Platelet Count 197 K/mm3 (150-450); RBC Distribution Width CV 14.6 % (11.6-14.6); RBC Distribution Width SD 48.6 fl (35.1-43.9); Red Blood Count 4.19 M/mm3 (4.6-6.2); White Blood Count 5.9 K/mm3 (4.4-11.0)
[2021-11-04 12:44] LABS: AST(SGOT) 13 U/L (15-37); Alanine Aminotransfer ALT/SGPT 19 U/L (16-61); Albumin, Serum 3.2 g/dL (3.2-5.0); Alkaline Phosphatase 75 U/L (45-117); Anion Gap 9 (5-15); BUN 19 mg/dL (7-18); BUN/Creat Ratio 19.4 RATIO (10-20); Calcium,Total 9.1 mg/dL (8.5-10.1); Chloride 105 mmol/L (98-107); Creatinine, Serum 0.98 mg/dL (0.70-1.30); EST Glomerular Filtration Rate 78 mL/min (>60); Est Glom Filt Rate - Afr Amer 94 mL/min (>60); Globulin 3.3 g/dL (2.2-4.2); Glucose 94 mg/dL (74-106); Potassium 4.1 mmol/L (3.5-5.1); Protein, Total 6.5 g/dL (6.4-8.2); Sodium Level 144 mmol/L (136-145)
== END | disposition home or self-care (01) ==
PROVIDERS: PCP Internal Medicine; Visit Provider Internal Medicine
DX: I10 Essential (primary) hypertension (principal)
CPT/HCPCS: 36415; 80053; 85025

== ENCOUNTER → 2022-01-22 | Outpatient (CLI) | payer MEDICARE, OTHER, SELFPAY ==
[2022-01-22 14:06] LABS: PSA,Total- Diagnostic 0.49 ng/mL (0.0-4.0)
== END | disposition home or self-care (01) ==
LOC: LAB 13:16
PROVIDERS: PCP Internal Medicine; Referring Provider Registered Nurse; Visit Provider Registered Nurse
DX: C61 Malignant neoplasm of prostate (principal)
CPT/HCPCS: 36415; 84153

== ENCOUNTER → 2022-03-10 | Outpatient (CLI) | payer MEDICARE, OTHER, SELFPAY ==
--- NOTE | 2022-03-11 05:18 | PFTCOMP_ITS ---
COMPLETE PULMONARY FUNCTION TEST INTERPRETATION Brief HPI: Patient is an 81-year-old male, currently under the care of myself, who presents to [facility] for complete pulmonary function tests secondary to diagnosis of COPD. Respiratory therapist reports good effort and reproducible results. Interpretation: Forced expiration spirometry shows a moderate large airways obstructive ventilatory defect with an FEV1 of 64% predicted. There is no significant bronchodilator response by strict ATS criteria. Spirograms are of good quality and plateau slowly, indicating slowly emptying areas of the lungs. The respiratory flow volume loop shows decreased expiratory flow rates at all lung volumes consistent with airway obstruction. Lung volumes by body plethysmography show a normal total lung capacity at 5.94 L, 110% predicted. FRC and RV are elevated out of proportion. Lung volume measurements are consistent with hyperinflation and air-trapping. Diffusion capacity by carbon monoxide is normal at 114% predicted. The airway resistance is slightly elevated. Compared to previous pulmonary function tests from 03/21/2020, there has been a significant improvement in all measured flows, volumes and air trapping. Impression: Irreversible moderate large airways obstructive ventilatory defect resulting in air trapping with hyperinflation, but significant improvement compared to 2020.
== END | disposition home or self-care (01) ==
LOC: PSN 12:37
PROVIDERS: PCP Internal Medicine; Visit Provider Internal Medicine Critical Care Medicine
DX: J44.9 Chronic obstructive pulmonary disease, unspecified (principal)
CPT/HCPCS: 94060; 94726; 94729

== ENCOUNTER → 2022-03-12 | Outpatient (CLI) | payer MEDICARE, OTHER, SELFPAY ==
[2022-03-12 14:06] VITALS: PULSE 77; PULSE 80; PULSE 92; PULSE 93; PULSE 94; PULSE 95; O2SAT 90; O2SAT 91; O2SAT 92; O2SAT 94
--- NOTE | 2022-03-12 14:53 | PCM.PSN.6M ---
PSN 6 Minute Walk Test 6 Minute Walk Test 6 Minute Walk Test: 6 Minute Walk Test PSN:6-Minute Walk Test Start: 03/12/22 14:06 Freq: Status: Active Protocol: RESP.6MINW Document 03/12/22 14:06 SHAHBAZWANG (Rec: 03/12/22 14:10 MARII [id number]) 6 Minute Walk Test Date Performed 03/12/22 Time Performed 12:30 Height 5 ft 6 in Weight: 77.111 kg Weight in Pounds 170.[address]: Jered Graham Assistive device used: None Pre-test Oxygen Delivery Method Room Air Pulse Ox (%) 92 Pulse Rate (60-100 beats/min) 77 Dyspnea Dulce Maria Scale (0-10) 0 Exertion Dulce Maria Scale (6-20) 6 1st minute Oxygen Delivery Method Room Air Pulse Ox (%) 94 Pulse Rate (60-100 beats/min) 92 2nd minute Oxygen Delivery Method Room Air Pulse Ox (%) 91 Pulse Rate (60-100 beats/min) 93 3rd minute Oxygen Delivery Method Room Air Pulse Ox (%) 90 Pulse Rate (60-100 beats/min) 94 4th minute Oxygen Delivery Method Room Air Pulse Ox (%) 90 Pulse Rate (60-100 beats/min) 94 5th minute Oxygen Delivery Method Room Air Pulse Ox (%) 91 Pulse Rate (60-100 beats/min) 95 6th minute Oxygen Delivery Method Room Air Pulse Ox (%) 91 Pulse Rate (60-100 beats/min) 95 Dyspnea Dulce Maria Scale (0-10) 4 Exertion Dulce Maria Scale (6-20) 13 Post-test Oxygen Delivery Method Room Air Pulse Ox (%) 94 Pulse Rate (60-100 beats/min) 80 Full Laps Walked 12 Partial Lap, Number of Tiles Walked 4 Total Distance Walked (ft) 712 Interpretation Interpretation: The patient was able to ambulate 712 feet over the course of 6 minutes on room air with no assistive devices. The patient did experience significant desaturation as low as 90%, without any significant tachycardia. These findings are consistent with a respiratory limitation exercise tolerance. Recommendations Recommendations: No supplemental oxygen is indicated at this time. However, patient will need to be followed closely given level of desaturation.
== END | disposition home or self-care (01) ==
LOC: PSN 12:14
PROVIDERS: PCP Internal Medicine; Visit Provider Internal Medicine Critical Care Medicine
DX: J44.9 Chronic obstructive pulmonary disease, unspecified (principal)
CPT/HCPCS: 94618

== ENCOUNTER → 2022-04-07 | Outpatient (CLI) | payer MEDICARE, OTHER, SELFPAY ==
--- NOTE | 2022-04-07 07:40 | AAVD_ITS ---
Reason For Study: AAA Aorta Measurements Aorta Doppler Measurements Proximal aorta measures1.90cm x 1.94cm. in cross- Peak systolic flow velocities within the proximal sectional axis. aorta measure 80 cm/sec. Proximal aorta measures1.96cm. in longitudinal Peak systolic flow velocities within the mid aorta axis. measure 110 cm/sec. Mid aorta measures3.20cmx 3.03cm. in cross- Peak systolic flow velocities within the distal sectional axis. aorta measure 95 cm/sec. Mid aorta measures3.28cm. in longitudinal axis. Distal aorta measures1.60cmx 1.72cm. in cross- sectional axis. Distal aorta measures1.81cm. in longitudinal axis. Left Iliac Artery Left iliac artery measures 2.18cmx 2.02 cm. in the cross-sectional axis. Left iliac artery measures 1.95 cm. in the longitudinal axis. Peak systolic velocity in the left iliac artery measures 270 cm/sec. Right Iliac Artery Right iliac artery measures 2.11cmx 2.09 cm. in the cross-sectional axis. Right iliac artery measures 2.13 cm. in the longitudinal axis. Peak systolic velocity in the right iliac artery measures 123 cm/sec. Procedure Aorta IVC Iliac vasculature or bypass grafts 88835. Exam performed in department. VL/Abd Aortic/IVC Duplex scan Interpretation Summary There is a 3.28cm aaa. Moderate to severe left MOE. Ordering Physician: Errol Johnson Referring Physician: Robert Hutchinson Performed By: Kelly Dorsey, YOCS, RVT
== END | disposition home or self-care (01) ==
LOC: CVS 07:39
PROVIDERS: PCP Internal Medicine; Visit Provider Surgery Vascular Surgery
DX: I71.43 Infrarenal abdominal aortic aneurysm, without rupture (principal)
CPT/HCPCS: 93978

== ENCOUNTER → 2022-07-24 | Outpatient (CLI) | payer MEDICARE, OTHER, SELFPAY ==
--- NOTE | 2022-07-24 15:00 | RAD_ITS ---
INDICATION: Chronic Neck Pain EXAMINATION/TECHNIQUE: X-RAY - XR Spine Cervical 2 or 3 Views COMPARISON: None. FINDINGS: VERTEBRAE: Preserved vertebral body height. No fracture. 2 mm spondylolisthesis C4 on C5. Preservation of the normal cervical lordosis. DISCS: Degenerative disc space loss C5-6 and C6-7. NECK SOFT TISSUES: No prevertebral soft tissue widening. LUNG APICES: Clear. RAD/Cerv Spine 2 or 3 Views IMPRESSION: Degenerative disc disease of the cervical spine.. Electronically Signed: Lew Harp MD at 19:37 EDT ,
--- NOTE | 2022-07-24 15:00 | RAD_ITS ---
INDICATION: Chronic Back pain EXAMINATION/TECHNIQUE: X-RAY - XR Spine Lumbar Min 4 Views COMPARISON: None. FINDINGS: VERTEBRAE: Preserved vertebral body height. No fracture. 5 mm spondylolisthesis L1 on L2, 4 mm retrolisthesis L3 on L4. Reversal of the normal lumbar lordosis. DISCS: Degenerative disc space loss throughout the lumbar spine with degenerative osteophytes. INCLUDED ABDOMEN: Included bowel gas pattern is non-obstructive. RAD/L/S Spine Min 4 Views IMPRESSION: Diffuse degenerative disc disease. No acute bony injury. Electronically Signed: Lew Harp MD at 19:41 EDT ,
[2022-07-24 15:34] LABS: Absolute Lymphocyte Count 0.99 X10^3/uL (0.83-4.51); Absolute Neutrophil Count 4.1 X10^3/uL (2.0-7.7); Basophil# 0.05 X10^3/uL; Basophil% 0.9 % (0-1); Eosinophil# 0.27 X10^3/uL; Eosinophils% 4.6 % (0-5); Hematocrit 37.6 % (40-54); Lymphocyte # 0.99 X10^3/ul (0.83-4.51); Mean Corp Hgb Conc 31.9 g/dL (32-36); Mean Corpuscular Hgb 28.2 pg (27.0-32.0); Mean Corpuscular Volume 88.5 fL (80-94); Mean Platelet Vol. 9.3 fl (6.2-12.0); Monocyte# 0.41 X10^3/uL; NRBC Flagged by Analyzer 0 % (0-5); Neutrophil % 70.2 % (47-70); Platelet Count 189 K/mm3 (150-450); RBC Distribution Width CV 14.7 % (11.6-14.6); RBC Distribution Width SD 47.5 fl (35.1-43.9); Red Blood Count 4.25 M/mm3 (4.6-6.2); White Blood Count 5.8 K/mm3 (4.4-11.0)
[2022-07-24 16:08] LABS: Vitamin B12 1721 pg/mL (211-911)
[2022-07-24 16:11] LABS: ALB/GLOB Ratio 1.2 RATIO (0.9-2.4); AST(SGOT) 29 U/L (15-37); Alanine Aminotransfer ALT/SGPT 21 U/L (16-61); Albumin, Serum 3.5 g/dL (3.2-5.0); Alkaline Phosphatase 73 U/L (45-117); Anion Gap 4 (5-15); BUN 26 mg/dL (7-18); BUN/Creat Ratio 23.9 RATIO (10-20); Calcium,Total 8.6 mg/dL (8.5-10.1); Chloride 109 mmol/L (98-107); Creatinine, Serum 1.09 mg/dL (0.70-1.30); EST Glomerular Filtration Rate 69 mL/min (>60); Est Glom Filt Rate - Afr Amer 83 mL/min (>60); Globulin 2.9 g/dL (2.2-4.2); Glucose 93 mg/dL (74-106); Potassium 4.1 mmol/L (3.5-5.1); Protein, Total 6.4 g/dL (6.4-8.2); Sodium Level 141 mmol/L (136-145)
== END | disposition home or self-care (01) ==
PROVIDERS: PCP Internal Medicine; Referring Provider Internal Medicine; Visit Provider Internal Medicine
DX: I10 Essential (primary) hypertension (principal); L60.3 Nail dystrophy; M54.2 Cervicalgia; G89.29 Other chronic pain
CPT/HCPCS: 36415; 72040; 72110; 80053; 82607; 85025

== ENCOUNTER → 2022-08-05 | Outpatient (CLI) | payer MEDICARE, OTHER, SELFPAY ==
[2022-08-05 12:52] LABS: PSA,Total- Diagnostic 0.77 ng/mL (0.0-4.0)
== END | disposition home or self-care (01) ==
LOC: LAB 11:02
PROVIDERS: PCP Internal Medicine; Referring Provider Urology; Visit Provider Urology
DX: R97.21 Rising PSA following treatment for malignant neoplasm of prostate (principal)
CPT/HCPCS: 36415; 84153

== ENCOUNTER → 2022-08-13 | Outpatient (CLI) | payer MEDICARE, OTHER, SELFPAY ==
--- NOTE | 2022-08-13 07:45 | MRI_ITS ---
EXAM: MR CERVICAL SPINE WITHOUT INTRAVENOUS CONTRAST CLINICAL INDICATION: pain TECHNIQUE: Multiplanar and multisequence MR images of the cervical spine without intravenous contrast were performed. COMPARISON: No relevant prior studies available. FINDINGS: VERTEBRAE: Unremarkable. Normal vertebral bodies and posterior elements. Normal alignment. Normal craniocervical junction and cervicothoracic junction. No spondylolisthesis. There is preservation of the normal cervical lordosis. INTERSPACES: Disc desiccation and disc height loss throughout the cervical spine. SPINAL CORD: Unremarkable in signal and morphology. SOFT TISSUES: Unremarkable. No prevertebral soft tissue swelling. LYMPH NODES: Unremarkable. There is no cervical adenopathy. DISCS/SPINAL CANAL/NEURAL FORAMINA: C2-C3: Unremarkable. Normal disc height and morphology. Normal spinal canal. Normal neuroforamina. C3-C4: Mild broad-based disc osteophyte complex without significant central canal or neural foraminal narrowing. C4-C5: Small central disc osteophyte complex causing mild focal stenosis of the central spinal canal and mild mass effect on the ventral aspect of the cervical cord without cord edema. No significant neural foraminal narrowing. C5-C6: Mild broad-based disc osteophyte complex without significant central canal or neural foraminal narrowing. C6-C7: Mild broad-based disc osteophyte complex as well as uncovertebral joint hypertrophy on the right, causing mild central canal narrowing, minimal mass effect on the ventral aspect of the cervical cord without cord edema, and moderate right neural foraminal narrowing. C7-T1: Unremarkable. Normal disc height and morphology. Normal spinal canal. Normal neuroforamina. MRI/Spine Cervical (Routine) IMPRESSION: Multilevel degenerative changes of the cervical spine as detailed above. No acute abnormalities. Electronically Signed: London Coleman MD at 0:25 EDT ,
== END | disposition home or self-care (01) ==
LOC: MRI 07:14
PROVIDERS: PCP Internal Medicine; Referring Provider Orthopaedic Surgery; Visit Provider Orthopaedic Surgery
DX: M50.30 Other cervical disc degeneration, unspecified cervical region (principal)
CPT/HCPCS: 72141

== ENCOUNTER → 2022-10-22 | Outpatient (CLI) | payer MEDICARE, OTHER, SELFPAY ==
[2022-10-22 16:24] LABS: PSA,Total- Diagnostic 1.46 ng/mL (0.0-4.0)
== END | disposition home or self-care (01) ==
PROVIDERS: PCP Internal Medicine; Referring Provider Urology; Visit Provider Urology
DX: R97.21 Rising PSA following treatment for malignant neoplasm of prostate (principal)
CPT/HCPCS: 36415; 84153

== ENCOUNTER → 2022-11-14 | Outpatient (CLI) | payer MEDICARE, OTHER, SELFPAY ==
--- NOTE | 2022-11-14 06:32 | ECHOCS_ITS ---
Reason For Study: ASHD Procedure This was a 2D Doppler, Color Flow transthoracic echocardiogram. The study was technically difficult. Due to COPD. Contrast injection was performed. Exam performed in department. Left Ventricle Normal LV size. Mild concentric left ventricular hypertrophy. The left ventricular ejection fraction is 60 %. Normal diastology for age. Right Ventricle Mildly dilated right ventricle. Mild to moderate global right ventricular systolic dysfunction. Atria There is mild biatrial dilatation. Mitral Valve Normal mitral valve. Tricuspid Valve Trivial tricuspid valve insufficiency. Unable to estimate RV systolic pressure due to insufficient tricuspid regurgitant envelope. Aortic Valve The aortic valve is not well visualized in the short axis view. Pulmonic Valve The pulmonic valve is not well visualized. Great Vessels Normal sized aortic root. Pericardium/Pleural No pericardial effusion. Medication Diluted definity 3.5ml given slow IV push to enhance endocardial definition. MMode/2D Measurements & Calculations LVIDd: 4.7 cm IVSd: 1.3 cm Ao root diam: 3.4 cm LVIDs: 3.4 cm LVPWd: 1.3 cm RVDd: 3.1 cm FS: 28.4 % LAV(MOD-bp): 52.3 ml LVAd ap4: 27.8 cm2 LVAd ap2: 23.1 cm2 LAV(MOD-bp) Indexed: 27.4 ml/m2 LVLd ap4: 7.6 cm LVLd ap2: 7.2 cm LAV(MOD-sp2): 50.0 ml EDV(MOD-sp4): 87.5 ml EDV(MOD-sp2): 60.9 ml LAV(MOD-sp4): 48.2 ml EDV(sp4-el): 86.4 ml EDV(sp2-el): 62.8 ml LVAs ap4: 17.4 cm2 LVAs ap2: 12.6 cm2 LVLs ap4: 6.8 cm LVLs ap2: 5.4 cm ESV(MOD-sp4): 36.8 ml ESV(MOD-sp2): 24.4 ml ESV(sp4-el): 37.7 ml ESV(sp2-el): 24.9 ml EF(MOD-sp4): 57.9 % EF(MOD-sp2): 59.9 % EF(sp4-el): 56.3 % SV(MOD-sp4): 50.7 ml SV(MOD-sp2): 36.5 ml SV(sp4-el): 48.7 ml LA A4 area: 17.7 cm2 LA dimension(2D): 3.4 cm RA A4 area: 18.1 cm2 Time Measurements MV dec time: 0.25 sec Doppler Measurements & Calculations MV E max enoch: 67.1 cm/sec Lat Peak E' Enoch: 8.6 cm/sec Med Peak E' Enoch: 9.4 cm/sec MV A max enoch: 64.1 cm/sec E/E' lat: 7.8 E/E' med: 7.1 MV E/A: 1.0 MV V2 max: 90.6 cm/sec Ao V2 max: 154.1 cm/sec MV max P.3 mmHg MV dec slope: 269.7 cm/sec2 Ao max P.5 mmHg MV V2 mean: 60.2 cm/sec Ao V2 mean: 118.6 cm/sec MV mean P.6 mmHg Ao mean P.0 mmHg MV V2 VTI: 23.7 cm Ao V2 VTI: 39.1 cm AV (velocity ratio): 0.74 LV V1 max: 117.8 cm/sec PA V2 max: 80.9 cm/sec TR max enoch: 194.5 cm/sec LV V1 max P.6 mmHg PA V2 mean: 63.0 cm/sec TR max P.1 mmHg LV V1 mean P.7 mmHg LV V1 mean: 95.2 cm/sec LV V1 VTI: 29.1 cm ECHO/Echo Complete W/ Contrast Interpretation Summary Mild concentric left ventricular hypertrophy. The left ventricular ejection fraction is 60 %. Mildly dilated right ventricle. Mild to moderate global right ventricular systolic dysfunction. There is mild biatrial dilatation. Ordering Physician: Juan Mcgowan Referring Physician: Robert Hutchinson Performed By: Marci Salomon, RDCS, RVT
--- NOTE | 2022-11-17 16:26 | STRESSREP_ITS ---
Stress Test Report Date: 11/14/2022 Procedure: Pharmacologic stress nuclear imaging study Indications: Dyspnea Consent: Per the patient Procedure: The patient underwent pharmacologic (Regadenoson 0.4mg ) evaluation with a peak heart rate of 83 beats per minute (60%predicted maximal heart rate) and a peak blood pressure of 130/70 mmHg. The baseline ECG demonstrated sinus rhythm. The peak pharmacologic ECG demonstrated no ischemic change. There were no cardiac dysrhythmias pretest, during pharmacologic infusion, or recovery. There was no complaint of chest discomfort during pharmacologic infusion or recovery. The patient was injected with 15.0 millicuries of technetium 99m Cardiolite and subsequently rest SPECT Cardiolite nuclear imaging was obtained in the horizontal long, vertical long, and short axis views. The patient underwent pharmacologic (Regadenoson) evaluation. The patient was injected with 44.0 millicuries of technetium 99m Cardiolite and subsequently stress SPECT Cardiolite nuclear imaging was obtained in the horizontal long, vertical long, and short axis views. A gated Cardiolite study at peak stress was obtained. The examination was stopped secondary to completion of protocol. Rest and stress SPECT Cardiolite nuclear imaging status post realignment, normalization, and attenuation correction demonstrate no fixed or reversible perfusion defects. There is end systolic thickening and brightening. The gated Cardiolite study demonstrates myocardial thickening and inward wall motion. The reported LVEF is 74%. Impression: 1. Pharmacologic (Regadenoson) evaluation 2. Peak pharmacologic ECG with no ischemic changes. 3. There were no cardiac dysrhythmias pretest, during pharmacologic infusion, or recovery. 5. Rest and stress SPECT Cardiolite nuclear imaging demonstrate relative uniform tracer uptake and myocardial perfusion appearing within normal limits. 6. The gated Cardiolite study reports an LVEF of 74%. This note was generated with [employer] software. It may contain incorrect words, spelling, and punctuation that were not noted in checking the note before signing.
== END | disposition home or self-care (01) ==
LOC: CVS 06:30
PROVIDERS: PCP Internal Medicine; Referring Provider Internal Medicine Cardiovascular Disease; Visit Provider Internal Medicine Cardiovascular Disease
DX: J44.9 Chronic obstructive pulmonary disease, unspecified (principal); I10 Essential (primary) hypertension; I25.10 Atherosclerotic heart disease of native coronary artery without angina pectoris; Z86.79 Personal history of other diseases of the circulatory system
CPT/HCPCS: 78452; 93017; 93306; A9500; Q9957; A4216; C8929; J2785

== ENCOUNTER → 2023-01-22 | Outpatient (CLI) | payer MEDICARE, OTHER, SELFPAY ==
[2023-01-22 14:52] LABS: PSA,Total- Diagnostic 0.14 ng/mL (0.0-4.0)
== END | disposition home or self-care (01) ==
LOC: LAB 13:28
PROVIDERS: PCP Internal Medicine; Referring Provider Urology; Visit Provider Urology
DX: C61 Malignant neoplasm of prostate (principal)
CPT/HCPCS: 36415; 84153

== ENCOUNTER → 2023-03-24 | Outpatient (CLI) | payer MEDICARE, OTHER, SELFPAY ==
--- OUTSIDE RECORDS SUMMARY | 2023-03-24 12:34 | XMS RPT_ITS | CCD ---
Author Name Unknown Address [address] [place] [address] Organization [facility] Care Team Providers Care Litigation Docket Manager Name Role Phone River ARAMBULA, Jese Negrete Unavailable Medications Completed/Discontinued Medications Medication Drug Class(es) Dates Sig (Normalized) Sig (Original) acetaminophen 325 mg / HYDROcodone bitartrate 5 mg oral tablet (2 sources) Opioid Agonist take 1 tablet by mouth once daily HYDROCODONE-ACETA MINOPHEN 5-325 MG TABS One tablet by mouth daily HYDROCODONE-ACETA MINOPHEN [id number] Gwen Travis OXYCODONE-ACETAMINOP HEN (2 sources) Opioid Agonist Start: 06-25-2016 take 1 tablet by mouth twice daily as needed for pain PERCOCET 5-325 MG TABS One tablet by mouth twice daily as needed for pain OXYCODONE-ACETAMI NOPHEN [id number] Jese Holman MD ibuprofen 200 mg oral tablet (2 sources) Nonsteroidal Anti-inflammatory Drug IBUPROFEN 200 MG TABS as needed IBUPROFEN [id number] Gwen Travis MULTIPLE VITAMINS-MINERALS (2 sources) take 1 tablet by mouth once daily CENTRUM SILVER TABS One tablet by mouth daily MULTIPLE VITAMINS-MINERALS [id number] Gwen Traivs naproxen 500 mg oral tablet (2 sources) Nonsteroidal Anti-inflammatory Drug take 1 tablet by mouth twice daily NAPROSYN 500 MG TABS One tablet by mouth twice daily NAPROXEN [id number] Gwen Travis Problems Active Problems Problem Classification Problem Date Documented Da te Episodic/Chronic Melanomas of skin (2 sources) Malignant melanoma of skin of face; Translations: [Malignant melanoma of unspecified part of face] Onset: 08-08-2015 08-08-2015 Chronic Screening or history of mental health and substance abuse (2 sources) Smoker; Translations: [Nicotine dependence, unspecified, uncomplicated] Onset: 08-08-2015 08-17-2015 Chronic Past or Other Problems Problem Classification Problem Date Documented Da te Episodic/Chronic Melanomas of skin (2 sources) History of malignant melanoma of the skin; Translations: [Personal history of malignant melanoma of skin] Onset: 03-17-2016 04-18-2016 Episodic Neoplasms of unspecified nature or uncertain behavior (2 sources) Neoplasm of skin; Translations: [Neoplasm of unspecified behavior of bone, soft tissue, and skin] Onset: 03-17-2016 04-18-2016 Episodic Open wounds of head; neck; and trunk (2 sources) Unspecified open wound of other part of head, initial encounter; Translations: [Unspecified open wound of other part of head, initial encounter] Onset: 08-20-2015 08-20-2015 Episodic Other aftercare (4 sources) Surgical follow-up; Translations: [Unspecified open wound of other part of head, subsequent encounter] Onset: 08-20-2015 08-20-2015 Episodic Other and unspecified benign neoplasm (2 sources) Fibrous papule of face; Translations: [Melanocytic nevi of other parts of face] Onset: 06-25-2016 07-01-2016 Episodic Other eye disorders (2 sources) Ptosis of eyelid; Translations: [Unspecified ptosis of unspecified eyelid] Onset: 09-19-2015 10-12-2015 Episodic Other injuries and conditions due to external causes (2 sources) Late effect of injury to cranial nerve; Translations: [Injury of unspecified cranial nerve, sequela] Onset: 11-19-2015 12-01-2015 Episodic Other skin disorders (4 sources) Actinic keratosis; Translations: [Actinic keratosis] Onset: 08-08-2015 12-30-2015 Episodic Unclassified (2 sources) Family history of malignant neoplasm of skin; Translations: [Family history of malignant neoplasm of other organs or systems] Onset: 08-08-2015 08-08-2015 Episodic Results Test Name Value Interpretation Reference Range Facil ity Vital Signs Date Time Vital Sign Value Performing Clinician Faci lity 06-25-2016 14:54-0400 BMI (Body Mass Index) 26.61 kg/m2 Jese Garcia [facility] Work Phone: 06-25-2016 14:54-0400 Body Temperature 98.5 [degF] Jese Holman MD [facility] Work Phone: 06-25-2016 14:54-0400 BP Diastolic 82 mm[Hg] Jese Holman MD [facility] Work Phone: 06-25-2016 14:54-0400 BP Systolic 142 mm[Hg] Jese Holman MD [facility] Work Phone: 06-25-2016 14:54-0400 BSA (Body Surface Area) 1.9 m2 Jese Holman MD [facility] Work Phone: 06-25-2016 14:54-0400 Height 170.81 cm Jese Holman MD [facility] Work Phone: 06-25-2016 14:54-0400 Pulse (Heart Rate) 91 /min Jese Holman MD [facility] Work Phone: 06-25-2016 14:54-0400 Pulse Oximetry 96 % Jese Holman MD [facility] Work Phone: 06-25-2016 14:54-0400 Respiratory Rate 14 /min Jese Holman MD [facility] Work Phone: 06-25-2016 14:54-0400 Weight 77.66 kg Jese Holman MD [facility] Work Phone: Procedures Date Procedure Procedure Detail Performing Clinician Start: 06-25-2016 End: 07-02-2016 Follow Up Appt 6 months Jese Homlan MD Start: 03-17-2016 End: 06-19-2016 Follow Up Appt Other Jese Holman MD Start: 12-19-2015 End: 04-18-2016 Follow Up Appt 3 months Jese Holman MD Start: 11-19-2015 End: 12-12-2015 Follow Up Appt Other Jese Holman MD Start: 09-19-2015 End: 10-12-2015 Follow Up Appt 2 months Jese Holman MD Start: 09-05-2015 End: 10-12-2015 Follow Up Appt 2 weeks Jese Holman MD Start: 08-20-2015 End: 10-11-2015 Follow up Appt 1 week Jese Holman MD Start: 08-20-2015 End: 08-21-2015 Referral to service Jese Holman MD Start: 08-08-2015 End: 08-19-2015 Follow Up Appt Other Jese Holman MD Plan of Treatment Date Care Activity Detail Author Start: 06-25-2016 End: 07-02-2016 Follow Up Appt 6 months Follow Up Appt 6 months [facility] Work Phone: Start: 03-17-2016 End: 06-19-2016 Follow Up Appt Other Follow Up Appt Other [facility] Work Phone: Start: 12-19-2015 End: 04-18-2016 Follow Up Appt 3 months Follow Up Appt 3 months [facility] Work Phone: Start: 11-19-2015 End: 12-12-2015 Follow Up Appt Other Follow Up Appt Other [facility] Work Phone: Start: 09-19-2015 End: 10-12-2015 Follow Up Appt 2 months Follow Up Appt 2 months [facility] Work Phone: Start: 09-05-2015 End: 10-12-2015 Follow Up Appt 2 weeks Follow Up Appt 2 weeks [facility] Work Phone: Start: 08-20-2015 End: 10-11-2015 Follow up Appt 1 week Follow up Appt 1 week [facility] Work Phone: Start: 08-20-2015 End: 08-21-[address], [address] [facility] Work Phone: Start: 08-08-2015 End: 08-19-2015 Follow Up Appt Other Follow Up Appt Other [facility] Work Phone: Patient Education Medications [facility] Work Phone: Summary Purpose Family History No Family History Records FoundNo Family History Records Found Advance Directives No Advanced Directives Records FoundNo Advanced Directives Records Found Additional Source Comments (unrecognized sect ion and content) No Status Records FoundNo Status Records Found INFORMATION SOURCE (unrecogn ized section and content) DATE CREATED AUTHOR AUTHOR'S ORGANIZ ATION 03/28/2021 [facility] FOR RECORDS PERTAINING TO PATIENTS WHO ARE OR HAVE BEEN ENROLLED IN A CHEMICAL DEPENDENCY/SUBSTANCEABUSE PROGRAM, SOME INFORMATION MAY BE OMITTED. This clinical summary was aggregated from multiple sources. Caution should be exercised in using it in the provision of clinical care. This summary normalizes information from multiple sources, and as a consequence, information in this document may materially change the coding, format and clinical context of patient data. In addition, data may be omitted in some cases. CLINICAL DECISIONS SHOULD BE BASED ON THE PRIMARY CLINICAL RECORDS. [facility] [employer] [facility]. provides no warranty or guarantee of the accuracy or completeness of information in this document.
[2023-03-24 13:32] LABS: Amphetamine Urine VISTA NEGATIVE (<1000 ng/mL); Barbiturate Urine VISTA NEGATIVE (< 200 ng/mL); Benzodiazepine Urine VISTA NEGATIVE (< 200 ng/mL); Cocaine Urine VISTA NEGATIVE (< 300 ng/mL); Ecstacy Urine VISTA NEGATIVE (< 500 ng/mL); Methadone Urine VISTA NEGATIVE (< 300 ng/mL); PCP Urine VISTA NEGATIVE (< 25 ng/mL); THC Urine VISTA NEGATIVE (< 50 ng/mL); Vista UDS pH Range 5
== END | disposition home or self-care (01) ==
PROVIDERS: PCP Internal Medicine; Referring Provider Anesthesiology Pain Medicine; Visit Provider Anesthesiology Pain Medicine
DX: F11.20 Opioid dependence, uncomplicated (principal)
CPT/HCPCS: 80307

== ENCOUNTER → 2023-05-08 | Outpatient (CLI) | payer MEDICARE, OTHER, SELFPAY ==
[2023-05-08 13:14] LABS: PSA,Total- Diagnostic 0.09 ng/mL (0.0-4.0)
== END | disposition home or self-care (01) ==
LOC: LAB 11:39
PROVIDERS: PCP Internal Medicine; Referring Provider Nurse Practitioner; Visit Provider Nurse Practitioner
DX: C61 Malignant neoplasm of prostate (principal)
CPT/HCPCS: 36415; 84153

== ENCOUNTER → 2023-08-13 | Outpatient (CLI) | payer MEDICARE, OTHER, SELFPAY ==
[2023-08-13 11:42] LABS: PSA,Total- Diagnostic 0.16 ng/mL (0.0-4.0)
== END | disposition home or self-care (01) ==
LOC: LAB 10:30
PROVIDERS: PCP Internal Medicine; Referring Provider Urology; Visit Provider Urology
DX: C61 Malignant neoplasm of prostate (principal)
CPT/HCPCS: 36415; 84153

== ENCOUNTER → 2023-08-24 | Outpatient (CLI) | payer MEDICARE, OTHER, SELFPAY ==
[2023-08-24 15:26] LABS: Absolute Lymphocyte Count 1.01 X10^3/uL (0.83-4.51); Absolute Neutrophil Count 3.7 X10^3/uL (2.0-7.7); Basophil# 0.04 X10^3/uL; Basophil% 0.7 % (0-1); Eosinophil# 0.19 X10^3/uL; Eosinophils% 3.5 % (0-5); Hematocrit 37.7 % (40-54); Hemoglobin 11.8 g/dL (13.0-16.5); Lymphocyte # 1.01 X10^3/ul (0.83-4.51); Lymphocyte % 18.6 % (19-41); Mean Corp Hgb Conc 31.3 g/dL (32-36); Mean Corpuscular Hgb 28.5 pg (27.0-32.0); Mean Corpuscular Volume 91.1 fL (80-94); Mean Platelet Vol. 9.1 fl (6.2-12.0); Monocyte# 0.44 X10^3/uL; Monocyte% 8.1 % (0-10); NRBC Flagged by Analyzer 0 % (0-5); Neutrophil # 3.71 X10^3/uL (2.7-7.7); Neutrophil % 68.5 % (47-70); Platelet Count 208 K/mm3 (150-450); RBC Distribution Width CV 14.3 % (11.6-14.6); Red Blood Count 4.14 M/mm3 (4.6-6.2); White Blood Count 5.4 K/mm3 (4.4-11.0)
[2023-08-24 15:44] LABS: AST(SGOT) 18 U/L (15-37); Alanine Aminotransfer ALT/SGPT 16 U/L (16-61); Albumin, Serum 3.2 g/dL (3.2-5.0); Alkaline Phosphatase 71 U/L (45-117); Anion Gap 3 (5-15); BUN 17 mg/dL (7-18); BUN/Creat Ratio 20.7 RATIO (10-20); Chloride 108 mmol/L (98-107); Cholesterol 120 mg/dL (200); Creatinine, Serum 0.82 mg/dL (0.70-1.30); EST Glomerular Filtration Rate 95 mL/min (>60); Est Glom Filt Rate - Afr Amer 115 mL/min (>60); Globulin 3.1 g/dL (2.2-4.2); Glucose 107 mg/dL (74-106); High Density Lipoprotein 57 mg/dL; Potassium 3.9 mmol/L (3.5-5.1); Protein, Total 6.3 g/dL (6.4-8.2); Sodium Level 141 mmol/L (136-145); Triglycerides 106 mg/dL; Very Low Density Lipoprotein 21 mg/dL (5-40)
== END | disposition home or self-care (01) ==
LOC: BIMLAB 14:02
PROVIDERS: PCP Internal Medicine; Referring Provider Internal Medicine; Visit Provider Internal Medicine
DX: I10 Essential (primary) hypertension (principal)
CPT/HCPCS: 36415; 80053; 80061; 85025

== ENCOUNTER → 2023-11-17 | Outpatient (CLI) | payer MEDICARE, OTHER, SELFPAY ==
[2023-11-17 14:21] LABS: PSA,Total- Diagnostic 0.18 ng/mL (0.0-4.0)
== END | disposition home or self-care (01) ==
LOC: LAB 13:30
PROVIDERS: PCP Internal Medicine; Referring Provider Nurse Practitioner; Visit Provider Nurse Practitioner
DX: C61 Malignant neoplasm of prostate (principal)
CPT/HCPCS: 36415; 84153

== ENCOUNTER → 2023-12-02 | Outpatient (CLI) | payer MEDICARE, OTHER, SELFPAY ==
[2023-12-02 14:06] LABS: Amphetamine Urine VISTA NEGATIVE (<1000 ng/mL); Barbiturate Urine VISTA NEGATIVE (< 200 ng/mL); Benzodiazepine Urine VISTA NEGATIVE (< 200 ng/mL); Cocaine Urine VISTA NEGATIVE (< 300 ng/mL); Ecstacy Urine VISTA NEGATIVE (< 500 ng/mL); Methadone Urine VISTA NEGATIVE (< 300 ng/mL); PCP Urine VISTA NEGATIVE (< 25 ng/mL); THC Urine VISTA NEGATIVE (< 50 ng/mL); Vista UDS pH Range 5
== END | disposition home or self-care (01) ==
LOC: PAVLAB 12:37
PROVIDERS: PCP Internal Medicine; Referring Provider Anesthesiology Pain Medicine; Visit Provider Anesthesiology Pain Medicine
DX: F11.20 Opioid dependence, uncomplicated (principal)
CPT/HCPCS: 80307

== ENCOUNTER → 2024-03-21 | Outpatient (CLI) | payer MEDICARE, OTHER, SELFPAY ==
[2024-03-21 12:07] LABS: Absolute Lymphocyte Count 1.22 X10^3/uL (0.83-4.51); Absolute Neutrophil Count 5.3 X10^3/uL (2.0-7.7); Basophil# 0.06 X10^3/uL; Basophil% 0.8 % (0-1); Eosinophil# 0.26 X10^3/uL; Eosinophils% 3.5 % (0-5); Hematocrit 37.2 % (40-54); Hemoglobin 12.1 g/dL (13.0-16.5); Lymphocyte # 1.22 X10^3/ul (0.83-4.51); Lymphocyte % 16.5 % (19-41); Mean Corp Hgb Conc 32.5 g/dL (32-36); Mean Corpuscular Volume 89.2 fL (80-94); Mean Platelet Vol. 9.2 fl (6.2-12.0); Monocyte# 0.51 X10^3/uL; Monocyte% 6.9 % (0-10); NRBC Flagged by Analyzer 0 % (0-5); Neutrophil # 5.31 X10^3/uL (2.7-7.7); Neutrophil % 71.8 % (47-70); Platelet Count 186 K/mm3 (150-450); RBC Distribution Width CV 14.4 % (11.6-14.6); RBC Distribution Width SD 46.4 fl (35.1-43.9); Red Blood Count 4.17 M/mm3 (4.6-6.2); White Blood Count 7.4 K/mm3 (4.4-11.0)
[2024-03-21 12:31] LABS: Vitamin B12 439 pg/mL (211-911)
[2024-03-21 12:48] LABS: ALB/GLOB Ratio 1.3 RATIO (0.9-2.4); AST(SGOT) 21 U/L (15-37); Alanine Aminotransfer ALT/SGPT 22 U/L (16-61); Albumin, Serum 3.6 g/dL (3.2-5.0); Alkaline Phosphatase 75 U/L (45-117); Anion Gap 6 (5-15); BUN 19 mg/dL (7-18); BUN/Creat Ratio 20.5 RATIO (10-20); Calcium,Total 8.9 mg/dL (8.5-10.1); Chloride 106 mmol/L (98-107); Creatinine, Serum 0.93 mg/dL (0.70-1.30); EST Glomerular Filtration Rate 83 mL/min (>60); Est Glom Filt Rate - Afr Amer 100 mL/min (>60); Globulin 2.8 g/dL (2.2-4.2); Glucose 101 mg/dL (74-106); PSA,Total- Diagnostic 0.35 ng/mL (0.0-4.0); Potassium 4.4 mmol/L (3.5-5.1); Protein, Total 6.4 g/dL (6.4-8.2); Sodium Level 138 mmol/L (136-145); T4 Free Direct 1.16 ng/dL (0.76-1.46)
== END | disposition home or self-care (01) ==
LOC: BIMLAB 09:04
PROVIDERS: PCP Internal Medicine; Referring Provider Nurse Practitioner; Visit Provider Nurse Practitioner
DX: Z13.21 Encounter for screening for nutritional disorder (principal); C61 Malignant neoplasm of prostate; I10 Essential (primary) hypertension
CPT/HCPCS: 36415; 80053; 82607; 84153; 84439; 84443; 85025

== ENCOUNTER → 2024-03-29 | Outpatient (CLI) | payer MEDICARE, OTHER, SELFPAY ==
[2024-03-29 11:17] LABS: Amphetamine Urine NEGATIVE (<1000 ng/mL); Barbiturate Urine VISTA NEGATIVE (< 200 ng/mL); Benzodiazepine Urine VISTA NEGATIVE (< 200 ng/mL); Cocaine Urine VISTA NEGATIVE (< 300 ng/mL); Ecstacy Urine VISTA NEGATIVE (< 500 ng/mL); Methadone Urine VISTA NEGATIVE (< 300 ng/mL); PCP Urine VISTA NEGATIVE (< 25 ng/mL); THC Urine VISTA NEGATIVE (< 50 ng/mL); Vista UDS pH Range 4
== END | disposition home or self-care (01) ==
PROVIDERS: PCP Internal Medicine; Referring Provider Anesthesiology Pain Medicine; Visit Provider Anesthesiology Pain Medicine
DX: F11.20 Opioid dependence, uncomplicated (principal)
CPT/HCPCS: 80307

== ENCOUNTER → 2024-05-16 | Outpatient (CLI) | payer MEDICARE, OTHER, SELFPAY ==
--- NOTE | 2024-05-16 08:46 | AAVD_ITS ---
Reason For Study Reason For Study: AAA w/o rupture Aorta Measurements Aorta Doppler Measurements Proximal aorta measures2.11 x 2.11cm. in cross-sectional Peak systolic flow velocities within the proximal aorta axis. measure 59.6 cm/sec. Proximal aorta measures2.14cm. in longitudinal axis. Peak systolic flow velocities within the mid aorta measure Mid aorta measures3.28 x 3.34cm. in cross-sectional axis. 81.4 cm/sec. Mid aorta measures3.24cm. in longitudinal axis. Peak systolic flow velocities within the distal aorta Distal aorta measures1.82 x 1.84cm. in cross-sectional axis.measure 99.5 cm/sec. Distal aorta measures1.84cm. in longitudinal axis. Left Iliac Artery Left iliac artery measures 2.27 x 2.21 cm. in the cross-sectional axis. Left iliac artery measures 2.19 cm. in the longitudinal axis. Peak systolic velocity in the left iliac artery measures 239 cm/sec. Right Iliac Artery Right iliac artery measures 1.39 x 1.37 cm. in the cross-sectional axis. Right iliac artery measures 1.59 cm. in the longitudinal axis. Peak systolic velocity in the right iliac artery measures 65.1 cm/sec. Procedure Aorta IVC Iliac vasculature or bypass grafts [id number]. Exam performed in department. VL/Abd Aortic/IVC Duplex scan Interpretation Summary Aortic aneurysm 3cm. LeftCIA stenosis noted. Ordering Physician: Errol Johnson Referring Physician: Robert Hutchinson Performed By: Delma Little RVT
== END | disposition home or self-care (01) ==
LOC: CVS 08:45
PROVIDERS: PCP Internal Medicine; Referring Provider Surgery Vascular Surgery; Visit Provider Surgery Vascular Surgery
DX: I71.43 Infrarenal abdominal aortic aneurysm, without rupture (principal)
CPT/HCPCS: 93978

== ENCOUNTER → 2024-05-17 | Outpatient (CLI) | payer MEDICARE, OTHER, SELFPAY ==
--- NOTE | 2024-05-17 12:15 | RAD_ITS ---
EXAM: Two views lumbosacral spine. CLINICAL HISTORY: Spondylosis without myelopathy or radiculopathy, lumbosacral reg COMPARISON: None TECHNIQUE: Two views of the lumbosacral spine. FINDINGS: Two views of the lumbosacral spine were obtained and demonstrate 5 lumbar type vertebral bodies below the last set of paired ribs. Diffuse osteopenia the osseous structures is noted. There is a slight decrease in height of the L3 and L5 vertebral bodies by approximately 3%. This may be related to osteoporotic compression fractures. Degenerative changes of the lumbar spine are noted. There is a levoscoliosis. There is disc space narrowing involving all of the intervertebral disc spaces. There is vacuum phenomenon identified at the L2-L3 disc space. Arteriosclerotic vascular disease of the aorta is noted. Two round 6 mm calcific densities are projected over the anterior right lower abdomen region. These may represent stones in the kidney. Ultrasound may be of value for further evaluation if clinically warranted. Sacrum demonstrates diffuse osteopenia. RAD/Lumbar Spine 2 or 3 Views IMPRESSION: Slight decrease in height of the L3 and L5 vertebral bodies by approximately 3% . This may be related to osteoporotic compression fractures. The age of which is indeterminate. Degenerative changes lumbar spine. Diffuse Osteopenia lumbar spine and sacrum degenerative disc disease involving all of t he intervertebral lumbar disc. Arteriosclerotic vascular Disease of the aorta. The 2 round 6 mm calcific densities projected over the a nterior right lower abdomen region may represent kidney stones. Reading Location: [id number]
== END | disposition home or self-care (01) ==
LOC: RAD 12:14
PROVIDERS: PCP Internal Medicine; Referring Provider Anesthesiology Pain Medicine; Visit Provider Anesthesiology Pain Medicine
DX: M47.817 Spondylosis without myelopathy or radiculopathy, lumbosacral region (principal)
CPT/HCPCS: 72100

== ENCOUNTER → 2024-06-28 | Outpatient (CLI) | payer MEDICARE, OTHER, SELFPAY ==
[2024-06-28 16:09] LABS: PSA,Total- Diagnostic 0.75 ng/mL (0.00-4.00)
== END | disposition home or self-care (01) ==
LOC: BIMLAB 12:10
PROVIDERS: PCP Internal Medicine; Visit Provider Nurse Practitioner
DX: C61 Malignant neoplasm of prostate (principal)
CPT/HCPCS: 36415; 84153

== ENCOUNTER → 2024-07-06 | Outpatient (CLI) | payer MEDICARE, OTHER, SELFPAY ==
[2024-07-06 15:21] LABS: Hematocrit 37.4 % (40-54); Hemoglobin 12.1 g/dL (13.0-16.5); Mean Corp Hgb Conc 32.4 g/dL (32-36); Mean Corpuscular Volume 89.7 fL (80-94); Mean Platelet Vol. 9.2 fl (6.2-12.0); Platelet Count 198 K/mm3 (150-450); RBC Distribution Width CV 14.5 % (11.6-14.6); RBC Distribution Width SD 47.6 fl (35.1-43.9); Red Blood Count 4.17 M/mm3 (4.6-6.2); White Blood Count 6.5 K/mm3 (4.4-11.0)
[2024-07-06 16:54] LABS: ALB/GLOB Ratio 1.6 RATIO (0.9-2.4); AST(SGOT) 16 U/L (<=37); Alanine Aminotransfer ALT/SGPT 10 U/L (<=46); Albumin, Serum 3.8 g/dL (3.4-4.8); Alkaline Phosphatase 76 U/L (40-129); Anion Gap 9 (5-15); BUN 19 mg/dL (4-19); BUN/Creat Ratio 20.1 RATIO (10-20); Calcium,Total 9.3 mg/dL (7.6-11.0); Carbon Dioxide 27.6 mmol/L (21.0-32.0); Chloride 102 mmol/L (98-108); Creatinine, Serum 0.96 mg/dL (0.70-1.20); EST Glomerular Filtration Rate 78 (>60); Globulin 2.3 g/dL (2.2-4.2); Glucose 99 mg/dL (70-99); Potassium 3.8 mmol/L (3.3-5.1); Protein, Total 6.1 g/dL (5.9-8.4); Sodium Level 139 mmol/L (133-145); Total Bilirubin 0.23 mg/dL (0.00-1.30)
== END | disposition home or self-care (01) ==
LOC: LAB 14:19
PROVIDERS: PCP Internal Medicine; Referring Provider Internal Medicine Cardiovascular Disease; Visit Provider Internal Medicine Cardiovascular Disease
DX: I10 Essential (primary) hypertension (principal)
CPT/HCPCS: 36415; 80053; 84443; 85027

== ENCOUNTER → 2024-07-13 | Outpatient (CLI) | payer MEDICARE, OTHER, SELFPAY ==
--- NOTE | 2024-07-13 12:40 | ECHOD_ITS ---
Reason For Study Reason For Study: EDEMA Procedure This was a 2D Doppler, Color Flow transthoracic echocardiogram. The study was technically difficult. Exam performed in department. Left Ventricle Normal size and thickness. The LV systolic function is normal. EF is 65 %. Normal diastology for age. Right Ventricle Normal right ventricle. A moderator band is seen in the right ventricle. Atria The left and right atria are normal. Mitral Valve Trivial mitral valve insufficiency. Tricuspid Valve Trivial tricuspid valve insufficiency. Normal pulmonary artery pressure. Aortic Valve Trisinus/trileaflet aortic valve. Moderately calcified noncoronary cusp of the aortic valve. Mild aortic valve stenosis. Trivial regurgitation. Pulmonic Valve The pulmonic valve is not well visualized. Great Vessels Normal sized aortic root. Pericardium/Pleural No pericardial effusion. MMode/2D Measurements & Calculations LVIDd: 3.7 cm IVSd: 1.1 cm LVOT diam: 2.1 cm LVIDs: 2.6 cm LVPWd: 1.0 cm LVOT area: 3.5 cm2 RVDd: 3.4 cm FS: 31.7 % asc Aorta Diam: 3.3 cm LAV(MOD-bp): 31.1 ml LVAd ap4: 19.1 cm2 LAV(MOD-bp) Indexed: 17.1 ml/m2 LVLd ap4: 6.8 cm LAV(MOD-sp2): 39.6 ml EDV(MOD-sp4): 45.7 ml LAV(MOD-sp4): 24.2 ml EDV(sp4-el): 45.7 ml LVAs ap4: 10.4 cm2 LVLs ap4: 5.6 cm ESV(MOD-sp4): 16.8 ml ESV(sp4-el): 16.3 ml EF(MOD-sp4): 63.3 % EF(sp4-el): 64.3 % LVAd ap2: 18.7 cm2 SV(MOD-sp4): 28.9 ml SV(MOD-sp2): 32.3 ml LVLd ap2: 6.6 cm SI(MOD-sp4): 15.9 ml/m2 SI(MOD-sp2): 17.8 ml/m2 EDV(MOD-sp2): 46.7 ml EDV(sp2-el): 45.2 ml LVAs ap2: 9.2 cm2 LVLs ap2: 5.3 cm ESV(MOD-sp2): 14.3 ml ESV(sp2-el): 13.5 ml EF(MOD-sp2): 69.2 % SV(sp4-el): 29.4 ml Ao sinus diam: 3.[address] Junction: 2.8 cm LA dimension(2D): 3.3 cm LA A4 area: 12.5 cm2 RA A4 area: 10.8 cm2 TAPSE: 1.5 cm Time Measurements MV dec time: 0.25 sec Doppler Measurements & Calculations MV E max enoch: 65.6 cm/sec Lat Peak E' Enoch: 7.4 cm/sec Med Peak E' Enoch: 9.8 cm/sec MV A max enoch: 78.2 cm/sec E/E' lat: 8.9 E/E' med: 6.7 MV E/A: 0.84 MV dec slope: 262.7 cm/sec2 Ao V2 max: 190.9 cm/sec LV V1 max: 93.8 cm/sec Ao max P.6 mmHg LV V1 max P.5 mmHg Ao V2 mean: 140.7 cm/sec LV V1 mean P.7 mmHg Ao mean P.6 mmHg LV V1 mean: 61.1 cm/sec Ao V2 VTI: 39.2 cm LV V1 VTI: 18.8 cm AV (velocity ratio): 0.48 ТАТЬЯНА(I,D): 1.7 cm2 ТАТЬЯНА(V,D): 1.7 cm2 SV(LVOT): 66.4 ml PA V2 max: 79.1 cm/sec TR max enoch: 235.5 cm/sec TR max P.2 mmHg ECHO/Echo Complete Interpretation Summary The LV systolic function is normal. EF is 65 %. Moderately calcified noncoronary cusp of the aortic valve. Mild aortic valve st enosis. Trivial regurgitation. The study was technically difficult. Ordering Physician: Juan Mcgowan Referring Physician: Robert Hutchinson Performed By: Marag Jimenez RDCS
== END | disposition home or self-care (01) ==
LOC: CVS 12:38
PROVIDERS: PCP Internal Medicine; Referring Provider Internal Medicine Cardiovascular Disease; Visit Provider Internal Medicine Cardiovascular Disease
DX: I51.89 Other ill-defined heart diseases (principal); R60.0 Localized edema
CPT/HCPCS: 93306

== ENCOUNTER → 2024-10-03 | Outpatient (CLI) | payer MEDICARE, OTHER, SELFPAY ==
[2024-10-03 13:48] LABS: PSA,Total - Annual Screen 1.26 ng/mL (0.02-4.00)
== END | disposition home or self-care (01) ==
LOC: LAB 11:49
PROVIDERS: PCP Internal Medicine; Referring Provider Nurse Practitioner; Visit Provider Nurse Practitioner
DX: C61 Malignant neoplasm of prostate (principal)
CPT/HCPCS: 36415; 84153; G0103

== ENCOUNTER → 2025-01-03 | Outpatient (CLI) | payer MEDICARE, OTHER, SELFPAY ==
[2025-01-03 14:33] LABS: PSA,Total- Diagnostic 1.69 ng/mL (0.00-4.00)
== END | disposition home or self-care (01) ==
LOC: LAB 12:36
PROVIDERS: PCP Internal Medicine; Referring Provider Urology; Visit Provider Urology
DX: C61 Malignant neoplasm of prostate (principal)
CPT/HCPCS: 36415; 84153

== ENCOUNTER 2025-01-25 16:19 | Emergency (ER) | payer MEDICARE, OTHER, SELFPAY ==
[2025-01-25 16:20] VITALS: BP 141/66; PULSE 88; RESP 18; TEMP 36.2; O2SAT 94
--- NOTE | 2025-01-25 16:33 | CT_ITS ---
PROCEDURE: CT SPINE CERVICAL WITHOUT CONTRAST 01/25/2025 REASON FOR EXAM: TRAUMA TECHNIQUE: Procedure Code: CTSPC Modality: CT Procedure: SPINE CERVICAL WITHOUT CONTRAS Coronal and Sagittal reconstruction series were provided. One or more dose reduction techniques were used (e.g., Automated exposure control, adjustment of the mA and/or kV according to patient size, use of iterative reconstruction technique. RADIATION DOSE SUMMARY: DLP: 1624.29 mGycm COMPARISON: MRI 08/13/2022. FINDINGS: No acute fracture or subluxation. Mild grade 1 degenerative anterolisthesis of C4 on C5, and C7 on T1, and with positional/degenerative straightening of the cervical lordosis. Multilevel spondylotic changes with varying degrees of disc space narrowing, multiple small Schmorl's nodes and/or subchondral cysts, anterior osteophytosis, uncovertebral spurring and hypertrophic facet arthropathy. No prevertebral soft tissue swelling. Atherosclerotic vascular calcifications. CT/Spine Cervical without Contras IMPRESSION: No acute fracture or subluxation. Degenerative changes as described above. Reading Location: [id number]
--- NOTE | 2025-01-25 16:33 | EKG12_ITS ---
Test Reason : Blood Pressure : */* mmHG Vent. Rate : 84 BPM Atrial Rate : 336 BPM P-R Int : * ms QRS Dur : 88 ms QT Int : 360 ms P-R-T Axes : * 25 34 degrees QTcB Int : 425 ms Atrial flutter with 4:1 A-V conduction Junctional ST depression, probably normal Abnormal ECG Confirmed by JANICE ARAMBULA, MARY ([id number]), copy editor VINITA GARCIA ([id number]) on 01/27/2025 9:05:31 AM Referred By: Confirmed By: MARY CAMACHO MD
--- NOTE | 2025-01-25 16:33 | CT_ITS ---
PROCEDURE: CT CHEST, ABD, PEL W/CONTRAST 01/25/2025 REASON FOR EXAM: FALL, LEFT RIB PAIN, SOB TECHNIQUE: CT CHEST, ABD, PEL W/CONTRAST Coronal and Sagittal reconstructions were provided. One or more dose reduction techniques were used (e.g., Automated exposure control, adjustment of the mA and/or kV according to patient size, use of iterative reconstruction technique. CONTRAST: Isovue-300 VOLUME: 92 mL RADIATION DOSE SUMMARY: DLP: 1624.29 mGycm COMPARISON: Abdominal CTA 10/08/2020. FINDINGS: Lungs/pleura: Clear. Mild bibasilar dependent atelectasis. No pneumothorax or pleural effusion. Mild upper lobe predominant centrilobular emphysema. Patent central airways. Mediastinum: Unremarkable. No hematoma or adenopathy. Heart: Borderline enlarged. No pericardial effusion. Mild-moderate coronary artery calcifications. Aorta: Moderate atherosclerotic disease. Stable undulating infrarenal saccular aneurysms and/or chronic short-segment dissections measuring up to 3.8 cm diameter at the superior aspect, and 3.1 cm diameter at the inferior aspect. 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 Liver: Unremarkable. Gallbladder: Cholelithiasis. No evidence for acute cholecystitis. Spleen: Unremarkable. Pancreas: Unremarkable. Adrenals: Unremarkable. Kidneys: No hydronephrosis or urolithiasis. Retroaortic left renal vein. Bladder: Unremarkable. Reproductive Organs: Nonenlarged prostate. Surgical clips versus brachytherapy seeds. Bowel: No evidence of obstruction or active inflammation. Peritoneum/Retroperitoneum: No free fluid or air. No adenopathy. Bones: Acute nondisplaced fracture of the posterior left 9th rib. No other acute fracture or dislocation identified. Moderate multilevel degenerative changes of the spine. CT/CT Chest, Abd, Pel w/Contrast IMPRESSION: 1. Acute nondisplaced fracture posterior left 9th rib. No other acute fractures . 2. No acute airspace disease, pneumothorax or pleural effusion. Mild emphysema. 3. No acute vascular or intra-abdominal visceral injuries. 4. Stable infrarenal abdominal aortic aneurysms, as described. 5. Cholelithiasis without evidence for cholecystitis. Reading Location: [id number]
--- NOTE | 2025-01-25 16:34 | EX.ED.GENINJ ---
HPI History of Present Illness Chief Complaint: Fall Narrative Narrative: Patient is a 84-year-old male with a past medical history of BPH, prostate cancer, COPD, alcohol abuse, hypertension, hypercholesteremia who presents to the emergency department chief complaint of left rib pain. The patient states that he is taking the trash out on Thursday went to throw the bag in the trash cans slipped as his left leg gave out on him causing him to fall and land on his left side. He states he did not hit his head he did not pass out. He states that he thought his soreness was getting a better however he is still extremely tender and sore therefore he came here to be further evaluated. Patient states that he is not on any blood thinning medications. Patient did note that he is having worsening shortness of breath than his baseline but does note that he chronically has shortness of breath. [facility] Medical History History of prostate cancer Encounter for vitamin deficiency screening BPH (benign prostatic hyperplasia) Intertriginous dermatitis associated with moisture Hypoxia Degenerative disc disease, cervical Brittle nails Chronic back pain Chronic neck pain COPD with asthma Chronic constipation Lightheadedness Flu vaccine need Cancer Alcohol abuse Myocardial infarct Hypertension Great toe pain Toe infection Bilateral primary osteoarthritis of knee Bilateral lower extremity edema Tobacco abuse COPD (chronic obstructive pulmonary disease) Bilateral knee pain Debility Aortic aneurysm and dissection Osteoarthritis Hearing loss GERD (gastroesophageal reflux disease) Pure hypercholesterolemia Essential hypertension Diastolic dysfunction Atherosclerotic heart disease of [place] coronary artery without angina pectoris HTN (hypertension) Nicotine abuse Chest pain 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 Personal history of malignant melanoma Open forehead wound Smoker Family history of skin cancer Actinic keratosis Malignant melanoma of face Home Medications ?Medication ?Instructions ?Recorded ?Last Taken ?Type aspirin 81 mg tablet,delayed 81 mg PO QDAY heart health 08/27/17 10/06/20 History release 81 mg multivitamin 1 tab PO QDAY vitamin 08/27/17 10/06/20 History calcium carbonate (Antacid Ultra 430 mg PO DAILY supplement 01/09/20 10/06/20 History Strength) acetaminophen 325 mg tablet 650 mg PO Q6H PRN PAIN/FEVER 09/27/20 Unknown History nebulizers #1 ea 11/16/20 Unknown Rx cholecalciferol (vitamin D3) 25 25 mcg PO Q OTHER DAY vitamin 10/17/21 Unknown History mcg (1,000 unit) capsule erythromycin 5 mg/gram (0.5 %) eye 1 applic ophthalmic (eye) QHS 10/17/21 Unknown History ointment hydrocodone-acetaminophen 5-325mg 1 tab PO TID PRN 04/13/23 Unknown History 5mg-325mg compress.stocking,knee,reg,lrg #2 ea 08/24/23 Unknown Rx docusate sodium 100 mg capsule 100 mg PO BID 08/24/23 Unknown History oxycodone myristate 9 mg capsule 9 mg PO BID 08/24/23 Unknown History sprinkle extended release 12 hr(DON'T CRUSH) (Xtampza ER) albuterol sulfate 2.5 mg/3 mL 2.5 mg (3 mL) inhalation Q6H PRN 05/26/24 Unknown Rx (0.083 %) solution for nebulization shortness of breath or wheezing #90 mL carboxymethyl 0.5 %-glycerin 1 1 drp ophthalmic (eye) QHS 05/31/24 Unknown History %-polysorb 80 0.5 %-PF eye dropperette (Refresh Optive Francisco Javier-3 (PF)) vitamins A,C,P-ldnr-qnlyaf 4,296 1 cap PO BID 05/31/24 Unknown History mcg-226 mg-90 mg capsule (PreserVision AREDS) doxazosin 1 mg tablet 1 mg PO QDAY #90 tabs 07/06/24 Unknown Rx metoprolol tartrate 50 mg tablet 50 mg PO BID #180 tabs 07/11/24 Unknown Rx fluticasone fur. 100 mcg-umeclid 1 inh inhalation DAILY #60 ea 07/12/24 Unknown Rx 62.5 mcg-vilant 25 mcg inhalat.powder (Trelegy Ellipta) isosorbide mononitrate 60 mg 60 mg PO DAILY #90 tabs 08/08/24 Unknown Rx tablet,extended release 24 hr atorvastatin 40 mg tablet 40 mg PO QDAY #90 tabs 09/08/24 Unknown Rx clopidogrel 75 mg tablet 75 mg PO DAILY #30 TABLETS 10/06/24 Unknown Rx furosemide 40 mg tablet 40 mg PO DAILY #30 TABLETS 10/17/24 Unknown Rx albuterol sulfate 90 mcg/actuation See Rx Instructions .Route 01/09/25 Unknown Rx aerosol inhaler .COMPLEX #18 grams lidocaine 5 % topical patch 1 patch topical DAILY #15 ea 01/25/25 Unknown Rx (Lidoderm) Allergy/AdvReac Type Severity Reaction Status Date / Time No Known Allergies Allergy Verified 01/25/25 16:20 Family History Other Arthritis Atrial fibrillation Heart disease Osteoporosis Skin cancer Surgical History History of coronary artery stent placement History of bilateral cataract extraction Hx of vasectomy History of fracture of finger History of tonsillectomy History of local excision of skin lesion Presence of stent in coronary artery (~07/28/17) Postsurgical percutaneous transluminal coronary angioplasty (PTCA) status (~07/28/17) Social History Smoking Status: Light Smoker (<10/day) Tobacco: How many years used: 65 Electronic Cigarette Use: not used second hand exposure: Yes alcohol intake: current alcohol intake frequency: 0-2 drinks per day Alcohol type: beer substance use type: does not use caffeine: Yes Type: coffee Number of servings: 3 what type of physical activity do you participate in: walking ROS ROS ED ROS Narrative Constitutional: Denies any fevers, chills, headaches Eyes: Denies changes double vision Cardiovascular: Denies chest pain Respiratory: Complains of shortness of breath as noted above Abdomen: Denies any abdominal pain nausea vomiting diarrhea : Denies urinary symptoms Neurological: Denies any numbness, weeks, tingling Musculoskeletal: Complains of left rib pain as noted above Skin: Complains of bruising to the left side EXAM Physical Exam Narrative Exam Narrative: General: Patient was lying in bed rest comfortably did not appear to be in acute distress Head: Atraumatic, normocephalic Eyes: PERRL bilaterally, EOMI bilaterally, no conjunctival injection noted Neck: Soft, supple, trachea midline Cardiovascular: Regular rate and rhythm no murmurs gallops rubs and Respiratory: Clear to auscultation bilateral Abdomen: Soft, nondistended, no tenderness to palpation Musculoskeletal: Patient has tenderness to palpation of the left rib cage Extremities: +4/5 strength noted in the bilateral upper and lower extremities Neurological: Patient following commands knew he was at [facility] the year is 2024 NIH is 0 GCS 15 Skin: Warm, dry, patient has ecchymosis along the left lower side of his abdomen no petechia no purpura no sloughing of the skin noted Const Vital Signs: 01/25/25 16:20 01/25/25 17:02 01/25/25 20:03 Temperature 97.1 F L Temperature Source Temporal Pulse Rate 88 109 H Respiratory Rate 18 18 Respiratory Effort Normal Respiratory Depth Normal Respiratory Pattern Normal Blood Pressure 141/66 H 136/68 H Blood Pressure Mean 91 90 Pulse Ox 94 92 Oxygen Delivery Method Room Air Room Air Room Air 01/25/25 20:04 Temperature 98.6 F Temperature Source Oral Pulse Rate Respiratory Rate Respiratory Effort Respiratory Depth Respiratory Pattern Blood Pressure Blood Pressure Mean Pulse Ox Oxygen Delivery Method MDM MDM MDM Narrative Medical decision making narrative: Patient is a 84-year-old male who presented to the emergency department chief complaint of left side pain after a fall on Thursday. On the differential diagnose includes but not limited to rib fracture, pneumothorax, retroperitoneal hemorrhage. Once workup is obtained reviewed he will be reevaluated patient given IV fluids morphine and Zofran. Patient CBC reviewed and showed no evidence leukocytosis white blood count 7.4, hemoglobin 0.9, plate count was noted to be 192. Patient's INR normal at 1, PT of 13.7. Patient sodium was 141, Tessman 4, creatinine 0.79. Patient AST and ALT are 20 and [address] cervical spine showed no acute fracture lithiasis. Patient CT chest abdomen pelvis with IV contrast showed acute nondisplaced fracture of the posterior left ninth rib no other acute findings were noted. Cholelithiasis without evidence of acute cholecystitis. Did discuss results with the patient he would like to go home at this point time. Patient was advised to rotate Tylenol and ibuprofen [id number] for mild to moderate pain, use his narcotic that he has already prescribed for his severe breakthrough pain he will be given Lidoderm patch as well. He was encouraged to use incentive spirometry as well. He is encouraged to return with worsening symptoms or concerns. He is agreeable to plan all questions earns answered is discharged home in stable condition Lab Data Labs: Laboratory Results - last 24 hr 01/25/25 16:43 WBC 7.4 RBC 4.25 L Hgb 11.9 L Hct 37.7 L MCV 88.7 MCH 28.0 MCHC 31.6 L RDW Std Deviation 51.0 H RDW Coeff of Maurilio 15.9 H Plt Count 192 MPV 8.8 Immature Gran % (Auto) 0.500 Neut % (Auto) 73.5 H Lymph % (Auto) 17.1 L Wood % (Auto) 6.8 Eos % (Auto) 1.4 Baso % (Auto) 0.7 Absolute Neuts (auto) 5.4 Absolute Lymphs (auto) 1.26 Nucleated RBC % 0 PT 13.7 INR 1.0 APTT 29.5 Sodium 141 Potassium 4.0 Chloride 106 Carbon Dioxide 26.7 Anion Gap 9 BUN 12 Creatinine 0.79 Est GFR (MDRD) Non-Af 87 BUN/Creatinine Ratio 15.1 Glucose 81 Calcium 9.0 Total Bilirubin 0.35 Direct Bilirubin 0.18 AST 20 ALT 10 Alkaline Phosphatase 91 Total Protein 6.1 Albumin 3.8 Globulin 2.3 Radiography Diagnostic Testing: Clinical Impression(s) from Imaging Studies Cervical Spine CT 01/25/25 16:33 IMPRESSION: No acute fracture or subluxation. Degenerative changes as described above. Reading Location: [facility] [place] [facility] Chest/Abdomen/Pelvis CT 01/25/25 16:33 IMPRESSION: 1. Acute nondisplaced fracture posterior left 9th rib. No other acute fractures. 2. No acute airspace disease, pneumothorax or pleural effusion. Mild emphysema. 3. No acute vascular or intra-abdominal visceral injuries. 4. Stable infrarenal abdominal aortic aneurysms, as described. 5. Cholelithiasis without evidence for cholecystitis. Reading Location: [facility] [place] [facility] Discharge Plan Triage Chief Complaint: Fall ED Provider: Colby Alfonso Dx/Rx/DC Orders Clinical Impression: Rib pain on left side, Fracture of left ninth rib, Fall Prescriptions: New lidocaine [Lidoderm] 5 % adhesive patch,medicated 1 patch topical DAILY Qty: 15 0RF Rx Instructions: leave on most painful area for up to 12 hrs No Action aspirin 81 mg tablet,delayed release (DR/EC) 81 mg PO QDAY multivitamin tablet 1 tab PO QDAY Antacid Ultra Strength 430 mg calcium (1,000 mg) tablet,chewable 430 mg PO DAILY acetaminophen 325 mg tablet 650 mg PO Q6H PRN (Reason: PAIN/FEVER) cholecalciferol (vitamin D3) 25 mcg (1,000 unit) capsule 25 mcg PO Q OTHER DAY (DME) nebulizers Misc See Rx Instructions .ROUTE .MEDSUPPLY Qty: 1 0RF Rx Instructions: As directed erythromycin 5 mg/gram (0.5 %) ointment 1 applic ophthalmic (eye) QHS Patient Comments: Use 1/4 ribbon IN BOTH EYES ONCE DAILY AT BEDTIME DIRECTED hydrocodone-acetaminophen 5-325 mg tablet 1 tab PO TID PRN Patient Comments: TAKE 1/2 (ONE-HALF) TO 1 (ONE) TABLET BY MOUTH TWICE DAILY for up to 7 (SEVEN) days docusate sodium 100 mg capsule 100 mg PO BID Xtampza ER 9 mg cap,sprinkl,ER12hr(DONT CRUSH) 9 mg PO BID (DME) compress.stocking,knee,reg,lrg Misc See Rx Instructions .MEDSUPPLY Qty: 2 1RF Rx Instructions: wear daily for venous insufficiency 20-30 mmHg PreserVision AREDS 4,296 mcg-226 mg-90 mg capsule 1 cap PO BID Refresh Optive Francisco Javier-3 (PF) 0.5-1-0.5 % dropperette 1 drp ophthalmic (eye) QHS doxazosin 1 mg tablet 1 mg PO QDAY Qty: 90 3RF albuterol sulfate 2.5 mg /3 mL (0.083 %) solution for nebulization 2.5 mg inhalation Q6H PRN (Reason: shortness of breath or wheezing) Qty: 90 1RF metoprolol tartrate 50 mg tablet 50 mg PO BID Qty: 180 3RF Trelegy Ellipta 100-62.5-25 mcg blister with device 1 inh INHALATION DAILY Qty: 60 11RF isosorbide mononitrate 60 mg tablet extended release 24 hr 60 mg PO DAILY Qty: 90 3RF atorvastatin 40 mg tablet 40 mg PO QDAY Qty: 90 3RF clopidogrel 75 mg tablet 75 mg PO DAILY Qty: 30 11RF furosemide 40 mg tablet 40 mg PO DAILY Qty: 30 11RF albuterol sulfate 90 mcg/actuation HFA aerosol inhaler See Rx Instructions .ROUTE .COMPLEX Qty: 18 1RF Dose Instruction: INHALE 2 (TWO) puffs EVERY 6 HOURS NEEDED for SHORTNESS OF BREATH or FOR WHEEZING Rx Instructions: INHALE 2 (TWO) puffs EVERY 6 HOURS NEEDED for SHORTNESS OF BREATH or FOR WHEEZING Primary Care Provider: Robert Hutchinson Referrals: Robert Hutchinson MD [Primary Care Provider, Internal Medicine] Activity Restrictions/Additional Instructions: Use your incentive spirometry as we discussed. Rotate Tylenol and ibuprofen [id number] when you do this you can take something every 3 hours for pain max dose Tylenol in 24 hours 4000 mg max dose of ibuprofen in 24 hours 3200 mg. Use your narcotic for severe pain. Use the Lidoderm patch as prescribed. Return with worsening symptoms or any concerns. You did break your left ninth rib in your back. Print Language: Malay Disposition Disposition: Home, Self Care
[2025-01-25] MEDS: 0.9% Normal Saline (1000mL) 1,000 ML 999 ML IV (16:50)
[2025-01-25 17:00] LABS: Hematocrit 37.7 % (40-54); Hemoglobin 11.9 g/dL (13.0-16.5); Immature Granulocytes Count 0.040 X10^3/uL (0.0-0.0); Mean Corp Hgb Conc 31.6 g/dL (32-36); Mean Corpuscular Volume 88.7 fL (80-94); Mean Platelet Vol. 8.8 fl (6.2-12.0); NRBC Flagged by Analyzer 0 % (0-5); Platelet Count 192 K/mm3 (150-450); RBC Distribution Width CV 15.9 % (11.6-14.6); RBC Distribution Width SD 51.0 fl (35.1-43.9); Red Blood Count 4.25 M/mm3 (4.6-6.2); White Blood Count 7.4 K/mm3 (4.4-11.0)
[2025-01-25 17:11] LABS: Prothrombin Time (Protime)PT. 13.7 SECONDS (11.7-14.9)
[2025-01-25 17:13] LABS: Partial Thromboplast Time 29.5 Seconds (24.1-36.2)
[2025-01-25 17:18] LABS: AST(SGOT) 20 U/L (<=37); Alanine Aminotransfer ALT/SGPT 10 U/L (<=46); Albumin, Serum 3.8 g/dL (3.4-4.8); Alkaline Phosphatase 91 U/L (40-129); Anion Gap 9 (5-15); BUN 12 mg/dL (4-19); BUN/Creat Ratio 15.1 RATIO (10-20); Bilirubin, Direct 0.18 mg/dL (0.00-0.30); Calcium,Total 9.0 mg/dL (7.6-11.0); Carbon Dioxide 26.7 mmol/L (21.0-32.0); Chloride 106 mmol/L (98-108); Globulin 2.3 g/dL (2.2-4.2); Glucose 81 mg/dL (70-99); Potassium 4.0 mmol/L (3.3-5.1)
[2025-01-25 20:03] VITALS: BP 136/68; PULSE 109; RESP 18; O2SAT 92
[2025-01-25 20:04] VITALS: TEMP 37
[2025-01-25] MEDS: HYDROmorphone 0.5 MG/0.5 ML SYRINGE IV (20:49)
--- NOTE | 2025-01-25 21:33 | ED.RN ---
PT. EDUCATED ON INCENTIVE SPIROMETER USE
[2025-01-25 21:35] VITALS: BP 133/61; PULSE 88; RESP 16; TEMP 36.7; O2SAT 100
== END 2025-01-25 21:36 | disposition home or self-care (01) ==
PROVIDERS: Emergency Provider Emergency Medicine; PCP Internal Medicine; Visit Provider Emergency Medicine
DX: S22.32XA Fracture of one rib, left side, initial encounter for closed fracture (principal); W01.0XXA Fall on same level from slipping, tripping and stumbling without subsequent striking against object, initial encounter
CPT/HCPCS: 71260; 72125; 74177; 80048; 80076; 85025; 85610; 85730; 93005; 96361; 96374; 96375; 99283; Q9967; A4216; J2405